=== PATIENT | male | born 1935 | race Caucasian/White ===

== ENCOUNTER 2017-03-09 18:32 | Inpatient (IN) ==
--- NOTE | 2017-03-09 22:45 | Internal Med History&Physical ---
Date of Encounter: 03/09/17 Time of Encounter: 22:32 Assessment and Plan (1) Rhabdomyolysis Current visit: Yes Status: Acute Trend CPK, IV fluid bolus, maintenance IV at 150 mL per hour Qualifiers: Rhabdomyolysis type: non-traumatic Qualified Code(s): M62.82 - Rhabdomyolysis (2) Elevated troponin Current visit: Yes Status: Acute Transient troponin. EKG personally reviewed with V paced rhythm (3) Cellulitis Current visit: Yes Status: Acute IV vancomycin, monitor vancomycin levels, pharmacy to assist with dosing Qualifiers: Site of cellulitis: extremity Site of cellulitis of extremity: lower extremity Laterality: left Qualified Code(s): L03.116 - Cellulitis of left lower limb (4) FRANCESCO (acute kidney injury) Current visit: Yes Status: Acute IV fluids, I's and O's likely prerenal and rhabdomyolysis (5) Encephalopathy acute Current visit: Yes Status: Acute Monitor mental status with above treatment (6) Fall Current visit: Yes Status: Acute PT evaluation when mental status improves Qualifiers: Encounter type: initial encounter Qualified Code(s): W19.XXXA - Unspecified fall, initial encounter Internal Medicine - H&P: HPI Chief complaint: found down, fall History of present illness: Mr. Esparza is a 82 year old male with a history of hypertension, depression, dementia, hyperlipidemia, CAD status post CABG and a paced maker placement who presents with a fall/loss of consciousness with elevated CPK greater than 2000, troponin 0.24, creatinine of 1.34, WBC 15.9 and was transferred from [facility] for further management. On evaluation he has a left lower extremity cellulitis. He appears confused and agitated at current and is unable to provide a history. His home meds per chart review include 25 mg sertraline daily, 40 mg lisinopril daily, donepezil 5 mg daily, eliqius 5 mg twice a day, Norvasc 10 mg daily At the [facility] with CPK in the 2476 range, lactate of 2.04, troponin of 0.19, creatinine of 1.34, a bicarbonate of 29 Initial trauma screen at outside hospital with a CT cervical spine, CT head without acute findings. , x-ray left knee with soft tissue swelling, normal chest x-ray EKG with ventricular paced rhythm rate 88 Internal Medicine - H&P: Meds Allergies No Known Allergies Allergy (Verified 03/09/17 22:51) All Systems PM: A 10-system review of systems was performed and is negative for pertinent findings except as documented above in the HPI. Review of systems: ROS 14 point review of systems reviewed as best as possible given presentation. Pertinent positive or negative as per HPI or otherwise reviewed as negative - Constitutional Vitals: Temp Pulse Resp BP Pulse Ox 98.4 F 112 18 134/66 98 03/09/17 21:50 03/09/17 21:50 03/09/17 21:50 03/09/17 21:50 03/09/17 21:50 Exam: General - confused, hyperactive active delirium Psych - Appropriate affect/speech. No agitation Eyes - IVAN. Eye lids intact. No scleral icterus ENT - Oral mucosa pink, dentition intact. External ear clear/dry/intact. No thyromegaly Lymphatics - No cervical/inguinal lympadenopathy Neuro - No gross peripheral or central neuro deficits with intact CN 2-12 exam Heart - Sinus. RRR. S1 and S2 present. No added HS/murmurs appreciated. No elevated JVD appreciated. No calf swellings/erythema Lung - Adequate air entry b/l, No crackes/wheezes appreciated GI - Soft, non-tender. No hepatosplenomegaly/ascities. BS+ - No CVA/suprapubic tenderness or palpable bladder distension Skin - left lower extremity cellulitis. Warm extremities
[2017-03-09] MEDS ORDERED: Naloxone 0.4 MG/ML INJ IVP PRN (22:51)
[2017-03-09] MEDS ORDERED: 0.9 % Sodium Chloride 1,000 ML IVC ONE (22:57)
[2017-03-09] MEDS ORDERED: Vancomycin 1,000 MG in D5% in Water 250 ML IVPB ONE (23:00)
[2017-03-09] MEDS ORDERED: Vancomycin 1,000 MG in D5% in Water 250 ML IVPB SCH (23:00)
[2017-03-10] MEDS ORDERED: Haloperidol Lactate 5 MG/ML VIAL IVP ONE ×2 (03:08→03:22)
[2017-03-10] MEDS: 0.9 % Sodium Chloride 1,000 ML IVC SCH ×2 (04:43→13:52)
[2017-03-10 05:34] LABS: Hematocrit 26.9 % (37.5-50.1); Hemoglobin 8.7 g/dL (12.9-16.9); Mean Corpuscular HGB Conc 32.3 g/dL (31.6-35.5); Mean Corpuscular Hemoglobin 30.7 pg (28.0-33.3); Mean Corpuscular Volume 95.1 fL (83.0-100.0); Mean Platelet Volume 10.6 fL (9.4-12.4); Platelet Count 170 K/mcL (140-400); Red Blood Count 2.83 M/mcL (4.19-5.50); Red Cell Distribution Width 13.1 % (11.5-14.5)
[2017-03-10] MEDS ORDERED: *HR* Enoxaparin 30 MG/0.3 ML SYRINGE SQ SCH (06:00)
[2017-03-10 06:07] LABS: Alanine Aminotransferase 41 Units/L (0-55); Albumin 2.3 g/dL (3.5-5.0); Albumin/Globulin Ratio 0.7 (1.1-2.2); Alkaline Phosphatase 43 Units/L (38-126); Aspartate Amino Transferase 104 Units/L (5-34); BUN/Creatinine Ratio 63 (6-26); Bilirubin,Total 0.8 mg/dL (0.2-1.2); Blood Urea Nitrogen 68 mg/dL (8-26); Calcium 8.4 mg/dL (8.6-10.8); Carbon Dioxide 23 mEq/L (19-29); Chloride 103 mEq/L (98-109); Creatine Kinase 2625 Units/L (30-200); Globulin 3.2 g/dL (2.4-3.5); Glucose 95 mg/dL (70-99); Osmolality,Calculated 304 (280-300); Potassium 3.9 mEq/L (3.5-4.5); Sodium 137 mEq/L (136-145); Total Protein 5.5 g/dL (6.0-8.3); eGFR For African Americans > 60 (> 60); eGFR For Non-African Americans > 60 (> 60)
--- NOTE | 2017-03-10 10:07 | Internal Med Progress Note ---
<SlimangelSiva ocampo - Last Filed: 03/10/17 14:26> Date of Encounter: 03/10/17 Time of Encounter: 10:00 - Assessment and plan (1) Encephalopathy acute Current Visit: Yes Status: Acute Assessment and plan: - Likely etiologies include infection versus underlying dementia versus cardiac related vs polypharmacy versus symptomatic anemia versus acute kidney injury - We will continue to monitor and treat underlying conditions as below - Per patient's son, he has had a similar episode a couple months ago secondary to urinary tract infection which resolved back to baseline with antibiotics. (2) Rhabdomyolysis Current Visit: Yes Status: Acute Assessment and plan: - CK of 2625 - BUN/creatinine of 68/1.08, no baseline to compare - Is receiving normal saline at 100 mL per hour - We will continue to monitor and hydrate, avoid nephrotoxic agents Qualifiers: Rhabdomyolysis type: non-traumatic Qualified Code(s): M62.82 - Rhabdomyolysis (3) Elevated troponin Current Visit: Yes Status: Acute Assessment and plan: - Troponin emergency room was 0.24 has down trended to 0.19 -> 0.17 - EKG emergency room revealed a ventricular paced rhythm with no evidence of ST elevation - Likely result of demand ischemia versus rhabdomyolysis with acute kidney injury - Echocardiogram ordered for this afternoon (4) Cellulitis Current Visit: Yes Status: Acute Assessment and plan: - White count of 15.9 on admission, 17.2 this morning - Patient has left lower extremity erythema, warmth, swelling - On admission, lactate of 2.04, heart rate of 112, meeting criteria for severe sepsis secondary to cellulitis - Patient is receiving vancomycin, no longer meeting SIRS criteria. Afebrile, normal heart rate - Continue to monitor for improvement Qualifiers: Site of cellulitis: extremity Site of cellulitis of extremity: lower extremity Laterality: left Qualified Code(s): L03.116 - Cellulitis of left lower limb (5) FRANCESCO (acute kidney injury) Current Visit: Yes Status: Acute Assessment and plan: - Likely result of rhabdomyolysis - BUN/creatinine of 68/1.08, no baseline to compare - We will continue to monitor and hydrate (6) Fall Current Visit: Yes Status: Acute Assessment and plan: - Patient believes the fall to be mechanical in nature, however he does appear confused and is alert and oriented 1 this morning - H&H stable at 8.7/26.9, however per nursing he is having dark stools - We will closely monitor for GI bleed Qualifiers: Encounter type: initial encounter Qualified Code(s): W19.XXXA - Unspecified fall, initial encounter (7) GI bleed Current Visit: Yes Status: Suspected Assessment and plan: - Patient is H&H this morning was 8.7/26.9. Reported values from [facility] of 12.6/37.8 - Possibly due to dehydration upon admission, patient is currently returns receiving continuous IV fluids - Patient has reportedly had dark stools, however he does take iron supplementation at home. Per nursing, stool does not appear to be tar-like - Type and screen ordered, Lovenox discontinued. Stool occult ordered - Continue to monitor H&H and vital signs at this point Qualifiers: GI bleed type/associated pathology: melena Qualified Code(s): K92.1 - Melena - Time Spent With Patient 25 - 35 minutes - Subjective Interval history: Mr. Esparza was seen and examined at bedside this morning. He is AO 1, however he is able to report that he is not currently expressing any pain, shortness of breath, chest pain, fevers, chills, recent illness. He is trying to relate the story of how he came to the hospital, stating he was working on a car and tripped over something. He does not believe he was down on the ground for an extended period of time, he denies losing any consciousness. Story is hard to follow and he is difficult to understand due to soft speech with mild slurring. No family is present at bedside to corroborate story. His only complaint at this time is mild abdominal discomfort. Per nursing, patient has been having continuous dark stools. H&H is stable at this time we will continue monitor. After speaking with patient's son this afternoon, he explained that his father' s baseline is normally ao3 and is very active. He states he did have a recent colonoscopy apparently one month ago with normal results. He does take iron supplementation pills at home. He also reports a recent incidents a couple months ago where he had a urinary tract infection and was experiencing the same symptoms of confusion, decreased alertness. Reevaluation this afternoon patient is more alert and oriented and has passed his bedside swallow evaluation and is currently eating lunch without complaints. - Constitutional Vitals: Temp Pulse Resp BP Pulse Ox 98.6 F 82 18 126/49 96 03/10/17 08:09 03/10/17 08:09 03/10/17 08:09 03/10/17 08:09 03/10/17 08:09 Exam: Gen.: Vitals noted. No acute distress. AAOx1. Cachectic appearing HEENT: PERRL/EOMI, oropharynx clear, Normocephalic, atraumatic. Mildly dry mucous membranes Neck: Supple. No adenopathy. Cardiac: RRR, no murmur, +S1/S2. Pacemaker present in the left chest, ventricularly paced rhythm Pulmonary: CTA bilaterally, no wheezes, rales or rhonchi, equal chest expansion Abdomen: soft, nontender, BS noted, no guarding Back: Nontender throughout. MSK: ROM intact, no joint swelling noted area abrasions noted on left shoulder, left hip secondary to suspected fall Extremities: Left lower extremity erythema, warmth. no BLE edema, nontender calf, no cyanosis or clubbing Neuro: A&Ox1, moves all extremities, no focal deficits Psych: Appropriate mood and behavior Internal Medicine: Result - Labs CBC & Chem 7: 03/10/17 05:21 03/10/17 05:21 Labs: Short CBC 03/10/17 Range/Units 05:21 WBC 17.2 H (4.3-11.1) K/mcL Hgb 8.7 L (12.9-16.9) g/dL Hct 26.9 L (37.5-50.1) % Plt Count 170 (140-400) K/mcL BMP 03/10/17 05:21 Sodium 137 Potassium 3.9 Chloride 103 Carbon Dioxide 23 BUN 68 H Creatinine 1.08 Glucose 95 Calcium 8.4 L Cardiac Enzymes 03/09/17 03/10/17 Range/Units 23:59 05:21 Troponin I 0.19 H* 0.17 H* (0-0.03) ng/mL Liver Function 03/10/17 Range/Units 05:21 Total Bilirubin 0.8 (0.2-1.2) mg/dL AST 104 H (5-34) Units/L ALT 41 (0-55) Units/L Alkaline Phosphatase 43 (38-126) Units/L Albumin 2.3 L (3.5-5.0) g/dL Consult Discharge Plan - Plan Referrals: Twyla Sorenson MD [Non-Partnered Physician] - <Newton Espinal - Last Filed: 03/10/17 15:44> Date of Encounter: 03/10/17 - Assessment and plan (1) Sepsis Current Visit: Yes Status: Acute Qualifiers: Sepsis type: sepsis due to unspecified organism Qualified Code(s): A41.9 - Sepsis, unspecified organism (2) Rhabdomyolysis Current Visit: Yes Status: Acute Qualifiers: Rhabdomyolysis type: non-traumatic Qualified Code(s): M62.82 - Rhabdomyolysis (3) Elevated troponin Current Visit: Yes Status: Acute (4) FRANCESCO (acute kidney injury) Current Visit: Yes Status: Acute (5) Encephalopathy acute Current Visit: Yes Status: Acute (6) Fall Current Visit: Yes Status: Acute Qualifiers: Encounter type: initial encounter Qualified Code(s): W19.XXXA - Unspecified fall, initial encounter (7) Cellulitis Current Visit: Yes Status: Acute Qualifiers: Site of cellulitis: extremity Site of cellulitis of extremity: lower extremity Laterality: left Qualified Code(s): L03.116 - Cellulitis of left lower limb (8) GI bleed Current Visit: Yes Status: Suspected Qualifiers: GI bleed type/associated pathology: melena Qualified Code(s): K92.1 - Melena - Constitutional Vitals: Temp Pulse Resp BP Pulse Ox 98.0 F 84 16 107/50 93 03/10/17 12:21 03/10/17 12:21 03/10/17 12:21 03/10/17 12:21 03/10/17 12:21 Internal Medicine: Result - Labs CBC & Chem 7: 03/10/17 05:21 03/10/17 05:21 Labs: Short CBC 03/10/17 Range/Units 05:21 WBC 17.2 H (4.3-11.1) K/mcL Hgb 8.7 L (12.9-16.9) g/dL Hct 26.9 L (37.5-50.1) % Plt Count 170 (140-400) K/mcL BMP 03/10/17 05:21 Sodium 137 Potassium 3.9 Chloride 103 Carbon Dioxide 23 BUN 68 H Creatinine 1.08 Glucose 95 Calcium 8.4 L Cardiac Enzymes 07/27/17 07/28/17 Range/Units 23:59 05:21 Troponin I 0.19 H* 0.17 H* (0-0.03) ng/mL Liver Function 03/10/17 Range/Units 05:21 Total Bilirubin 0.8 (0.2-1.2) mg/dL AST 104 H (5-34) Units/L ALT 41 (0-55) Units/L Alkaline Phosphatase 43 (38-126) Units/L Albumin 2.3 L (3.5-5.0) g/dL - Attending Attestation I examined this patient and my medical decision-making was reviewed with the Resident Physician on 03/10/17. I agree with the documented findings, disposition and treatment plan as described except to the extent set forth below. Seen and evaluated at bedside 82 M with hx of fall-unknown duration with sepsis (tachycardia on presentation, leukocytosis and cellulitis) secondary to RLE cellulitis, rhabdomyolysis and FRANCESCO , elevated troponin, acute encephalopathy, anemia, suspected GIB, Afib on anticoagulation At time of review, he was confused, oriented to person only Hx obtained from chart Per family, patient is independent and functional at baseline Physical exam: VSS, Tachycardia has resolved, he was alert and oriented to self only, moved all extremities equally, chest is clear, abdomen is scaphoid, extremities with RLE redness and swelling, no visible abscess collection, no pedal edema. Labs and Imaging reviewed: CK 2625, FRANCESCO is improving with Cr 0.9, Elevated trop 0.19-0.17, Leukocytosis with left shift, C-Spine/Head CT with no sequelae of traums A/P *Severe Sepsis secondary to cellulitis, improving *FRANCESCO secondary to rhabdomyolysis, *Cellulitis, *Acute encephalopathy-multifactorial from FRANCESCO(metabolic, Sepsis, R/O underlying dementia) *Suspected GIbleed Continue antibiotics, Speech and swallow as well as PT/OT eval, continue current management. Obtain ECHO. If EF is low or WMA, consult cardiology, fall precautions, no evidence of decubitus ulcers Suspected GI bleed, possibly chronic anemia, obtain FOBT, type and screen, hold eliquis, ICDs for DVT prophylaxis. Consult GI/Surgery if HB drops , or FOBT positive Rest as in resident's documentation
--- NOTE | 2017-03-10 15:47 | Palliative - Consult Note ---
Date of Encounter: 03/10/17 Time of Encounter: 15:44 - Assessment and Plan (1) Goals of care, counseling/discussion Current Visit: Yes Status: Acute Assessment and plan: Mr. Esparza remains oriented to person only. Contacted his secondary contact ( Norris Mack [phone]) as his son Derek Esparza was not available. According to Norris, Mr. Esparza does not have advanced directives in place at this time. His spouse is in a nursing facility long-term following a stroke. His point of auto parts salesperson is his son, Derek. CODE STATUS will remain full at this time pending further goals of care discussions with the patient's mental status has returned to normal. The palliative care team will continue to follow. Thank you for this consultation. Derek Esparza cell; home Norris Mack (2) Rhabdomyolysis Current Visit: Yes Status: Acute Qualifiers: Rhabdomyolysis type: non-traumatic Qualified Code(s): M62.82 - Rhabdomyolysis (3) Encephalopathy acute Current Visit: Yes Status: Acute Palliative-CN HPI - Data of Consult Patient: new to practice Consult date: 03/10/17 Requesting Physician: Norris Reeder DO Primary Care Provider: PCP NONE - Consult Narrative Palliative Care/Comfort Measures: Palliative care Reason for consult: Goals of Care History of present illness: Mr. Esparza is an 82 year old male patient presenting to [facility] as a transfer from [facility]. Mr. Esparza was found by the visitor services representative from [employer] after a suspected fall in his home. He was last seen well at 6 PM on 03/08/2017. The visitor services representative from [employer] [facility] [employer] found him at 12:30 the afternoon on , 03/09/2017. He was evaluated by local hospital and transferred to [facility] for a higher level of care. Upon evaluation he was found to have rhabdomyolysis, left leg cellulitis, encephalopathy, and black tarry stools. He was admitted for further workup and treatment including IV fluids and antibiotics. The palliative care team was consulted to assist with goals of care management. According to Mr. Esparza's family, he has had a significant weight loss over the past year totaling between 25 and 30 pounds. He has had a workup regarding this weight loss that has been negative. His spouse has been in an ECF after recent CVA last year, requiring Mr. Esparza to be the primary caregiver of himself. He typically ambulates on his own without the use of assistive devices. His family reports a very poor appetite over the past 2-3 days. He does not have home health services at this time. CC: Norris Reeder, DO Past Med Surg Social Fam HX - Past Medical History Source: obtained from family Medical history: coronary artery disease, dementia, hyperlipidemia, hypertension , myocardial infarction (1998) Psychiatric history: depression - Past Surgical History Surgical History: coronary bypass (CABG), pacemaker - Social History Smoking Status: Current some day smoker Alcohol use: unknown Drug use: unknown Occupational status: retired (dairy husbandry worker) Current living situation: Home - Independent, With Family (family checks on him daily) Activity Level: Uses cane/walker Medications and Allergies Apixaban [Eliquis] 5 mg PO BID 03/10/17 [History] Donepezil [Aricept] 5 mg PO HS 03/10/17 [History] Ferrous Sulfate [Iron] 325 mg PO DAILY 03/10/17 [History] Lisinopril [Zestril] 40 mg PO DAILY 03/10/17 [History] Multivitamin [One Daily Essential] 1 each PO DAILY 03/10/17 [History] [place]-3 Fatty Acids [Fish Oil] 600 mg PO DAILY 03/10/17 [History] Sertraline [Zoloft] 25 mg PO DAILY 03/10/17 [History] amLODIPine [Norvasc] 10 mg PO DAILY 03/10/17 [History] Allergies No Known Allergies Allergy (Verified 03/10/17 13:14) - Constitutional Constitutional ROS PAL: weight loss (25-30# weight loss in the past year) - EENT Eyes: no change in vision Ears: decreased hearing Ears, nose, mouth, throat: no dysphagia, no sore throat - Cardiovascular Cardiovascular ROS: no chest pain, no chest pain at rest, no chest pain with activity - Respiratory Respiratory: no cough, no dyspnea, no dyspnea on exertion, no chest congestion - Gastrointestinal Gastrointestinal: no constipation, no diarrhea, no nausea, no vomiting - Genitourinary Genitourinary ROS male: no difficulty urinating, no urinary frequency - Musculoskeletal Musculoskeletal ROS IM: muscle weakness - Integumentary ROS Integumentary: erythema (left leg) - Neurological Neurological ROS: confusion, lack of coordination, weakness, no focal weakness - Psychiatric Psychiatric general PM: no anxiety Palliative Care-Exam - Constitutional Vitals: Temp Pulse Resp BP Pulse Ox 98.0 F 84 16 107/50 93 03/10/17 12:21 03/10/17 12:21 03/10/17 12:21 03/10/17 12:21 03/10/17 12:21 Exam: 82 year old male, cachectic, alert to person. - Eye Eye exam: Present: EOMI - ENT ENT exam: Absent: mucous membranes dry - Respiratory Respiratory exam: Absent: accessory muscle use, decreased breath sounds, respiratory distress - Cardiovascular Cardiovascular exam: Present: RRR, +S1, +S2 - GI/Abdominal Exam GI/Abdominal exam: Present: normal bowel sounds, soft. Absent: tenderness - Extremities Exam Extremities exam: Absent: normal inspection (left leg erythema) - Expanded Lower Extremities Exam Lower Leg exam: Present: erythema - Neurological Exam Neurological exam: Present: alert (oriented to person ), strengths equal and symetr throughout (global weakness). Absent: oriented X3 - Psychiatric Psychiatric exam: Absent: anxious - Skin Skin exam: Present: dry, erythema (left lower extremity), warm Internal Medicine - CN: Reslt - Labs CBC & Chem 7: 03/10/17 05:21 03/10/17 05:21 Labs: Short CBC 03/10/17 Range/Units 05:21 WBC 17.2 H (4.3-11.1) K/mcL Hgb 8.7 L (12.9-16.9) g/dL Hct 26.9 L (37.5-50.1) % Plt Count 170 (140-400) K/mcL BMP 03/10/17 05:21 Sodium 137 Potassium 3.9 Chloride 103 Carbon Dioxide 23 BUN 68 H Creatinine 1.08 Glucose 95 Calcium 8.4 L Cardiac Enzymes 03/09/17 03/10/17 Range/Units 23:59 05:21 Troponin I 0.19 H* 0.17 H* (0-0.03) ng/mL Liver Function 03/10/17 Range/Units 05:21 Total Bilirubin 0.8 (0.2-1.2) mg/dL AST 104 H (5-34) Units/L ALT 41 (0-55) Units/L Alkaline Phosphatase 43 (38-126) Units/L Albumin 2.3 L (3.5-5.0) g/dL Consult Discharge Plan - Plan Referrals: Twyla Sorenson MD [Non-Partnered Physician] - Palliative Quality Palliative Quality: Screen for Code Status: Yes, Screen for Goals of Care: Yes, Screen for Pain: Yes, If Pain Regimen Started, Initiate Bowel Regimen: Yes, Screen for Nausea/Vomitting: Yes Code Status: 03/09/17 22:51 Resuscitation Status: Active [RES] Routine Comment: Resuscitation Status: Full Code
[2017-03-11] MEDS: 0.9 % Sodium Chloride 1,000 ML IVC SCH ×2 (00:01→10:22)
[2017-03-11] MEDS: Vancomycin 1,000 MG in D5% in Water 250 ML IVPB SCH ×2 (00:03→22:58)
[2017-03-11] MEDS ORDERED: *HR* Enoxaparin 40 MG/0.4 ML SYRINGE SQ SCH (06:00)
[2017-03-11 07:18] LABS: Hematocrit 21.4 % (37.5-50.1); Mean Corpuscular HGB Conc 32.2 g/dL (31.6-35.5); Mean Corpuscular Hemoglobin 30.8 pg (28.0-33.3); Mean Corpuscular Volume 95.5 fL (83.0-100.0); Mean Platelet Volume 11.2 fL (9.4-12.4); Platelet Count 157 K/mcL (140-400); Red Blood Count 2.24 M/mcL (4.19-5.50); Red Cell Distribution Width 13.4 % (11.5-14.5)
[2017-03-11 07:23] LABS: Hemoglobin 6.9 g/dL (12.9-16.9)
[2017-03-11 07:36] LABS: BUN/Creatinine Ratio 58 (6-26); Calcium 8.1 mg/dL (8.6-10.8); Carbon Dioxide 26 mEq/L (19-29); Chloride 109 mEq/L (98-109); Creatine Kinase 492 Units/L (30-200); Glucose 115 mg/dL (70-99); Osmolality,Calculated 306 (280-300); Potassium 3.2 mEq/L (3.5-4.5); Sodium 141 mEq/L (136-145); eGFR For African Americans > 60 (> 60); eGFR For Non-African Americans > 60 (> 60)
[2017-03-11 07:38] LABS: Blood Urea Nitrogen 48 mg/dL (8-26)
[2017-03-11] MEDS ORDERED: Potassium Chloride 40 MEQ, Lidocaine 1% 2 ML in D5% in Water 500 ML IVPB ONE (08:24)
--- NOTE | 2017-03-11 09:46 | Internal Med Progress Note ---
<Siva Palacios - Last Filed: 03/11/17 11:46> Date of Encounter: 03/11/17 Time of Encounter: 09:41 - Assessment and plan (1) GI bleed Current Visit: Yes Status: Suspected Assessment and plan: - Patient is H&H this morning was 6.9/21.4, down from 8.7/26.9. Reported values from [facility] of 12.6/37.8 - Surgery consulted for EGD, NPO diet, protonix, carafate. - Patient has reportedly had dark stools, however he does take iron supplementation at home. - Type and screen ordered, Lovenox discontinued. Stool occult positive - 2 units of blood ordered today. Monitor CBC after transfusion. Qualifiers: GI bleed type/associated pathology: melena Qualified Code(s): K92.1 - Melena (2) Encephalopathy acute Current Visit: Yes Status: Acute Assessment and plan: - Likely etiologies include infection versus underlying dementia versus symptomatic anemia - Improving. - Echo was limited but showed a normal EF. Unlikely cardiac cause. - FRANCESCO resolved. Cellulitis improving on vanc. - We will continue to monitor and treat underlying conditions as below - Per patient's son, he has had a similar episode a couple months ago secondary to urinary tract infection which resolved back to baseline with antibiotics. (3) Cellulitis Current Visit: Yes Status: Acute Assessment and plan: - White count of 15.9 on admission, 17.3 this morning, stable from yesterday 17.2 - Patient has left lower extremity erythema, warmth, swelling. Mildly improved from yesterday - On admission, lactate of 2.04, heart rate of 112, meeting criteria for severe sepsis secondary to cellulitis - Patient is receiving vancomycin, no longer meeting SIRS criteria. Afebrile, normal heart rate - Continue to monitor for improvement Qualifiers: Site of cellulitis: extremity Site of cellulitis of extremity: lower extremity Laterality: left Qualified Code(s): L03.116 - Cellulitis of left lower limb (4) Rhabdomyolysis Current Visit: Yes Status: Acute Assessment and plan: - CK of 2625 on admission 400s today. - BUN/creatinine of 48/0.83, back to baseline Cr. - Is receiving normal saline at 100 mL per hour, will discontinue tomorrow. Full diet. - We will continue to monitor and hydrate, avoid nephrotoxic agents Qualifiers: Rhabdomyolysis type: non-traumatic Qualified Code(s): M62.82 - Rhabdomyolysis (5) Elevated troponin Current Visit: Yes Status: Resolved Assessment and plan: - Troponin emergency room was 0.24 has down trended to 0.19 -> 0.17-> 0.05 - EKG emergency room revealed a ventricular paced rhythm with no evidence of ST elevation - Likely result of demand ischemia versus rhabdomyolysis with acute kidney injury - Echo had normal EF. Doubt cardiac injury (6) FRANCESCO (acute kidney injury) Current Visit: Yes Status: Acute Assessment and plan: - Likely result of rhabdomyolysis - BUN/creatinine 48/0.83. Baseline Cr met. - We will continue to monitor and hydrate (7) Fall Current Visit: Yes Status: Acute Assessment and plan: - Patient believes the fall to be mechanical in nature, however he does appear confused and is alert and oriented 1 this morning - H&H dropped to 6.9/21.4, dark stools with iron supplementation. Stool occult positive. Surgery consult for EGD. Protonix BID and carafate started - Type and cross. Will transfuse 2 units - PT/OT evaluated, recommend SNF upon discharge. Qualifiers: Encounter type: initial encounter Qualified Code(s): W19.XXXA - Unspecified fall, initial encounter - Time Spent With Patient 25 - 35 minutes - Subjective Interval history: Mr. Esparza was seen and examined at bedside this morning. He is AO 1 still this morning. He does appear more alert and is speaking in full sentances. He states he is still in some pain in his left ankle and leg, which is exacerbated with movement. He denies any symptoms of fevers, chills, SOB. He still is remaining to the story of him reaching into his car, hitting his head on the roof, and being on the ground for approximately 15 minutes without LOC. He denies lightheadedness, dizziness, weakness. He tolerated breakfast well. - Constitutional Vitals: Temp Pulse Resp BP Pulse Ox 97.4 F L 69 16 112/58 99 03/11/17 07:27 03/11/17 07:27 03/11/17 07:27 03/11/17 07:27 03/11/17 07:27 Exam: Gen.: Vitals noted. No acute distress. AAOx1 HEENT: PERRL/EOMI, oropharynx clear, Normocephalic, abrasion on left scalp. Neck: Supple. No adenopathy. Cardiac: RRR, no murmur, +S1/S2. V-paced Pulmonary: CTA bilaterally, no wheezes, rales or rhonchi, equal chest expansion Abdomen: soft, nontender, BS noted, no guarding Back: Nontender throughout. MSK: ROM intact, no joint swelling noted Extremities: no BLE edema, nontender calf, no cyanosis or clubbing Neuro: A&Ox1, moves all extremities, no focal deficits Psych: Appropriate mood and behavior Internal Medicine: Result - Labs CBC & Chem 7: 03/11/17 06:30 03/11/17 06:30 Labs: Short CBC 03/11/17 Range/Units 06:30 WBC 17.3 H (4.3-11.1) K/mcL Hgb 6.9 L D (12.9-16.9) g/dL Hct 21.4 L (37.5-50.1) % Plt Count 157 (140-400) K/mcL BMP 03/11/17 06:30 Sodium 141 Potassium 3.2 L Chloride 109 Carbon Dioxide 26 BUN 48 H D Creatinine 0.83 Glucose 115 H Calcium 8.1 L Cardiac Enzymes 03/11/17 Range/Units 06:30 Troponin I 0.05 H* (0-0.03) ng/mL Consult Discharge Plan - Plan Referrals: Twyla Sorenson MD [Non-Partnered Physician] - <Newton Espinal - Last Filed: 03/11/17 14:44> Date of Encounter: 03/11/17 - Assessment and plan (1) Sepsis Current Visit: Yes Status: Acute Qualifiers: Sepsis type: sepsis due to unspecified organism Qualified Code(s): A41.9 - Sepsis, unspecified organism (2) Rhabdomyolysis Current Visit: Yes Status: Acute Qualifiers: Rhabdomyolysis type: non-traumatic Qualified Code(s): M62.82 - Rhabdomyolysis (3) Elevated troponin Current Visit: Yes Status: Resolved (4) FRANCESCO (acute kidney injury) Current Visit: Yes Status: Acute (5) Encephalopathy acute Current Visit: Yes Status: Acute (6) Fall Current Visit: Yes Status: Acute Qualifiers: Encounter type: initial encounter Qualified Code(s): W19.XXXA - Unspecified fall, initial encounter (7) Cellulitis Current Visit: Yes Status: Acute Qualifiers: Site of cellulitis: extremity Site of cellulitis of extremity: lower extremity Laterality: left Qualified Code(s): L03.116 - Cellulitis of left lower limb (8) GI bleed Current Visit: Yes Status: Suspected Qualifiers: GI bleed type/associated pathology: melena Qualified Code(s): K92.1 - Melena - Constitutional Vitals: Temp Pulse Resp BP Pulse Ox 97.4 F L 77 15 113/61 93 03/11/17 11:35 03/11/17 11:35 03/11/17 11:35 03/11/17 11:35 03/11/17 11:35 Internal Medicine: Result - Labs CBC & Chem 7: 03/11/17 06:30 03/11/17 06:30 Labs: Short CBC 03/11/17 Range/Units 06:30 WBC 17.3 H (4.3-11.1) K/mcL Hgb 6.9 L D (12.9-16.9) g/dL Hct 21.4 L (37.5-50.1) % Plt Count 157 (140-400) K/mcL BMP 03/11/17 06:30 Sodium 141 Potassium 3.2 L Chloride 109 Carbon Dioxide 26 BUN 48 H D Creatinine 0.83 Glucose 115 H Calcium 8.1 L Cardiac Enzymes 03/11/17 Range/Units 06:30 Troponin I 0.05 H* (0-0.03) ng/mL - Attending Attestation I examined this patient and my medical decision-making was reviewed with the Resident Physician on 03/10/17. I agree with the documented findings, disposition and treatment plan as described except to the extent set forth below. Seen and evaluated at bedside 82 M with hx of fall-unknown duration with sepsis (tachycardia on presentation, leukocytosis and cellulitis) secondary to RLE cellulitis, rhabdomyolysis and FRANCESCO , elevated troponin, acute encephalopathy, anemia, suspected GIB, Afib on anticoagulation Seen and evaluated at bedside with his son. He is now much more awake and responds to questions His FRANCESCO has resolved, his cellulitis remains stable without evidence of abscess collection His leukocytosis persists His anemia is worse Physical exam: VSS, Tachycardia has resolved, he was alert and oriented to place and person. self only, moved all extremities equally, chest is clear, abdomen is scaphoid, extremities with RLE redness and swelling, no visible abscess collection, no pedal edema. Labs and Imaging reviewed: CK 400, FRANCESCO is resolved, Elevated trop 0.19-0.17-0.05 , Leukocytosis with left shift, C-Spine/Head CT with no sequelae of trauma ECHo poor study but EF is preserved FOBT positive A/P *Severe Sepsis secondary to cellulitis, improving, continue vancomycin , leukocytosis may also be reactionary due to acute blood loss anemia from suspected GI bleed *FRANCESCO secondary to rhabdomyolysis, resolved *Elevated troponin: Adynamic, downtrending *Cellulitis, continue Vancomycin, no abscess collection *Acute encephalopathy-resolved, per patient's son, he is back to baseline. AMS was multifactorial from FRANCESCO(metabolic, Sepsis, R/O underlying dementia) *Suspected GI bleed-consult surgery, keep NPO *Acute blood loss anemia: Transfuse RBCs, monitor Hb *Afib: HR controlled, continue to hold Eliquis SCDs for DVT prophylaxis Rest of details as in the resident physician documentation.
[2017-03-11] MEDS: Sucralfate 1 GM TABLET PO SCH ×3 (10:23→22:58)
[2017-03-11] MEDS ORDERED: 0.9 % Sodium Chloride 250 ML ONE ×2 (15:00→18:48)
[2017-03-11 15:35] LABS: Hematocrit 21.7 % (37.5-50.1); Hemoglobin 7.2 g/dL (12.9-16.9); Mean Corpuscular HGB Conc 33.2 g/dL (31.6-35.5); Mean Corpuscular Hemoglobin 31.2 pg (28.0-33.3); Mean Corpuscular Volume 93.9 fL (83.0-100.0); Mean Platelet Volume 11.7 fL (9.4-12.4); Platelet Count 149 K/mcL (140-400); Red Blood Count 2.31 M/mcL (4.19-5.50); Red Cell Distribution Width 13.4 % (11.5-14.5)
--- NOTE | 2017-03-11 17:03 | General Surgery Consult Note ---
Date of Encounter: 03/11/17 Time of Encounter: 17:00 Assessment and Plan (1) Anemia Current Visit: Yes Status: Acute patient likely has had a GIB, receiving 1 unit prbc, on carafate and PPI, had colonoscopy 1.5 months ago according to son will plan EGD with anesthesia in am, risks and benefits discussed with patient and son and consent given npo midnight Qualifiers: Anemia type: other cause Other causes of anemia: acute posthemorrhagic Qualified Code(s): D62 - Acute posthemorrhagic anemia (2) Leukocytosis Current Visit: Yes Status: Acute due to cellulitis?, continue Abx Qualifiers: Leukocytosis type: unspecified Qualified Code(s): D72.829 - Elevated white blood cell count, unspecified (3) Urinary incontinence Current Visit: Yes Status: Chronic patient in a diaper which is completely filled with urine and has spilled over onto his gown. he has a recent fall and rhabdomyolitis and FRANCESCO, tracy to be placed Qualifiers: Urinary Incontinence type: unspecified incontinence Qualified Code(s): R32 - Unspecified urinary incontinence (4) FRANCESCO (acute kidney injury) Current Visit: Yes Status: Acute resolving (5) Cellulitis Current Visit: Yes Status: Acute Qualifiers: Site of cellulitis: extremity Site of cellulitis of extremity: lower extremity Laterality: left Qualified Code(s): L03.116 - Cellulitis of left lower limb (6) GI bleed Current Visit: Yes Status: Suspected on PPI and carafate, had colonoscop 1.5 months ago per son will plan EGD in am with anesthesia Qualifiers: GI bleed type/associated pathology: melena Qualified Code(s): K92.1 - Melena History of Present Illness Consult date: 03/11/17 Reason for consult: endoscopy History of present illness: Mr Esparza is a 82 yo male who was admitted to the hospital for rhabdomyolysis, FRANCESCO, anemia after a fall at home and being found by a meals on wheels personell. He initially was sent to [facility] and transfered her to [facility] for further care. He has a cellulitis of his leg and is on Abx. His Hb has decreased down to 6.9 from 8.9 on admission and is hemoccult positive. He is a poor historian currently and states he has had some dark black stools recently. In discussion with his son, Derek, patient had a colonoscopy ~1.5 months ago and no pathology found for his melena. He has had some recent weight loss but son isnt sure how much or over what time frame. Patient is on Eliquis as a home medication. Past Med Surg Social Fam HX - Past Medical History Source: patient, old records reviewed, obtained from family Medical history: coronary artery disease, dementia, hyperlipidemia, hypertension , myocardial infarction (1998) Psychiatric history: depression - Past Surgical History Surgical History: coronary bypass (CABG), pacemaker - Social History Smoking Status: Current some day smoker Alcohol use: unknown Drug use: unknown Medications and Allergies Apixaban [Eliquis] 5 mg PO BID 03/10/17 [History] Donepezil [Aricept] 5 mg PO HS 03/10/17 [History] Ferrous Sulfate [Iron] 325 mg PO DAILY 03/10/17 [History] Lisinopril [Zestril] 40 mg PO DAILY 03/10/17 [History] Multivitamin [One Daily Essential] 1 each PO DAILY 03/10/17 [History] Floris-3 Fatty Acids [Fish Oil] 600 mg PO DAILY 03/10/17 [History] Sertraline [Zoloft] 25 mg PO DAILY 03/10/17 [History] amLODIPine [Norvasc] 10 mg PO DAILY 03/10/17 [History] Allergies No Known Allergies Allergy (Verified 03/10/17 13:14) Review of Systems All systems PM: reviewed and no additional remarkable complaints except as stated All systems PM: A 10-system review of systems was performed and is negative for pertinent findings except as documented above in the HPI. General Surgery Exam Initial Vital Signs Temp Pulse Resp BP Pulse Ox 98.4 F 112 18 134/66 98 03/09/17 21:41 03/09/17 21:41 03/09/17 21:41 03/09/17 21:41 03/09/17 21:41 - General physical appearance well nourished, no distress, chronically ill - Eyes PERRL, normal ocular movement - ENT normal mucosa, normocephalic - Neck trachea midline - Respiratory normal expansion, clear to auscultation - Cardiovascular Cardiovascular exam: Present: RRR - Abdomen Abdomen general surgery: Present: bowel sounds present, soft, non tender. Absent: guarding, rebound - Integumentary Integumentary general surgery: Present: warm and dry, other (pale) - Neurologic Present: CN 2-12 grossly intact, confused, disoriented - Musculoskeletal Present: normal posture - Psychiatric Psychiatric general surgery: Present: oriented to person Exam Initial Vital Signs Temp Pulse Resp BP Pulse Ox 98.4 F 112 18 134/66 98 03/09/17 21:41 03/09/17 21:41 03/09/17 21:41 03/09/17 21:41 03/09/17 21:41 Results - Labs 03/11/17 14:52 03/11/17 06:30 Abnormal lab results WBC 19.2 K/mcL (4.3-11.1) H 03/11/17 14:52 RBC 2.31 M/mcL (4.19-5.50) L 03/11/17 14:52 Hgb 7.2 g/dL (12.9-16.9) L 03/11/17 14:52 Hct 21.7 % (37.5-50.1) L 03/11/17 14:52 Potassium 3.2 mEq/L (3.5-4.5) L 03/11/17 06:30 BUN 48 mg/dL (8-26) H D 03/11/17 06:30 BUN/Creatinine Ratio 58 (6-26) H 03/11/17 06:30 Glucose 115 mg/dL (70-99) H 03/11/17 06:30 POC Glucose 113 (58-89) H 03/10/17 12:26 Calculated Osmolality 306 (280-300) H 03/11/17 06:30 Calcium 8.1 mg/dL (8.6-10.8) L 03/11/17 06:30 AST 104 Units/L (5-34) H 03/10/17 05:21 Creatine Kinase 492 Units/L (30-200) H 03/11/17 06:30 Troponin I 0.05 ng/mL (0-0.03) H* 03/11/17 06:30 Serum Total Protein 5.5 g/dL (6.0-8.3) L 03/10/17 05:21 Albumin 2.3 g/dL (3.5-5.0) L 03/10/17 05:21 Albumin/Globulin Ratio 0.7 (1.1-2.2) L 03/10/17 05:21 Stool Occult Blood Positive (Negative) A 03/10/17 13:19 Diabetes panel 03/11/17 Range/Units 06:30 Sodium 141 (136-145) mEq/L Potassium 3.2 L (3.5-4.5) mEq/L Chloride 109 (98-109) mEq/L Carbon Dioxide 26 (19-29) mEq/L BUN 48 H D (8-26) mg/dL Creatinine 0.83 (0.72-1.25) mg/dL Glucose 115 H (70-99) mg/dL Calcium 8.1 L (8.6-10.8) mg/dL Calcium panel 03/11/17 Range/Units 06:30 Calcium 8.1 L (8.6-10.8) mg/dL Pituitary panel 03/11/17 Range/Units 06:30 Sodium 141 (136-145) mEq/L Potassium 3.2 L (3.5-4.5) mEq/L Chloride 109 (98-109) mEq/L Carbon Dioxide 26 (19-29) mEq/L BUN 48 H D (8-26) mg/dL Creatinine 0.83 (0.72-1.25) mg/dL Glucose 115 H (70-99) mg/dL Calcium 8.1 L (8.6-10.8) mg/dL Adrenal panel 03/11/17 Range/Units 06:30 Sodium 141 (136-145) mEq/L Potassium 3.2 L (3.5-4.5) mEq/L Chloride 109 (98-109) mEq/L Carbon Dioxide 26 (19-29) mEq/L BUN 48 H D (8-26) mg/dL Creatinine 0.83 (0.72-1.25) mg/dL Glucose 115 H (70-99) mg/dL Calcium 8.1 L (8.6-10.8) mg/dL All other labs normal. Consult Discharge Plan - Plan Referrals: Twyla Sorenson MD [Non-Partnered Physician] -
[2017-03-11] MEDS: Pantoprazole 40 MG VIAL IVP SCH (18:21)
[2017-03-11 22:21] LABS: Hematocrit 24.9 % (37.5-50.1); Hemoglobin 8.4 g/dL (12.9-16.9)
[2017-03-12] MEDS: 0.9 % Sodium Chloride 1,000 ML IVC SCH ×3 (05:18→17:25)
[2017-03-12] MEDS: Pantoprazole 40 MG VIAL IVP SCH ×2 (05:25→17:25)
[2017-03-12] MEDS: Sucralfate 1 GM TABLET PO SCH ×4 (07:15→23:39)
[2017-03-12 07:20] LABS: Hematocrit 28.2 % (37.5-50.1); Hemoglobin 9.6 g/dL (12.9-16.9); Mean Corpuscular Hemoglobin 31.4 pg (28.0-33.3); Mean Corpuscular Volume 92.2 fL (83.0-100.0); Platelet Count 160 K/mcL (140-400); Red Blood Count 3.06 M/mcL (4.19-5.50); Red Cell Distribution Width 14.8 % (11.5-14.5)
[2017-03-12 07:21] LABS: BUN/Creatinine Ratio 34 (6-26); Calcium 7.7 mg/dL (8.6-10.8); Carbon Dioxide 30 mEq/L (19-29); Chloride 103 mEq/L (98-109); Glucose 110 mg/dL (70-99); Osmolality,Calculated 287 (280-300); Potassium 3.6 mEq/L (3.5-4.5); Sodium 135 mEq/L (136-145); eGFR For African Americans > 60 (> 60); eGFR For Non-African Americans > 60 (> 60)
[2017-03-12 07:29] LABS: Blood Urea Nitrogen 31 mg/dL (8-26)
[2017-03-12] MEDS ORDERED: Propofol 500 MG/50 ML INFUS..BTL ONE (07:37)
[2017-03-12] MEDS ORDERED: Lidocaine -MPF 2% 2 ML VIAL ONE (07:41)
--- NOTE | 2017-03-12 07:50 | Anesthesia Evaluation PreOp ---
Date of Encounter: 03/12/17 Time of Encounter: 07:48 - Past History Planned Operation: EGD Cardiac History: OK (OK in 1998. Troponin bump this admission, trending down), HTN (maintained on Lisinopril, norvasc), Hyperlipidemia (maitnained on Fish Oil) , Arrhythmia (Paroxysmal AFib (?) maintained on Eliquis), Cardiac Surgery (s.p CABG), Pacemaker/ICD (Pacer/paced rhythm 88bpm) Pulmonary History: Smoker [employer] History: Other (Anxiety/Depression maintained on Sertraline. Acute encephalopathy this admission. Dementia of unspecified severity) Other Medical History: Renal (FRANCESCO, Rhabdomyolysis s/p fall w/ CPK >2000 this admission), GERD (Melanotic stool/probably GIB), Other (LE cellulitis) Anesthesia History: No Prior Anesthetic Complications, Past Anesthesia (CABG, Pacemaker placement,) Alcohol Use: unknown Drug use: unknown Medications and Allergies Apixaban [Eliquis] 5 mg PO BID 03/10/17 [History] Donepezil [Aricept] 5 mg PO HS 03/10/17 [History] Ferrous Sulfate [Iron] 325 mg PO DAILY 03/10/17 [History] Lisinopril [Zestril] 40 mg PO DAILY 03/10/17 [History] Multivitamin [One Daily Essential] 1 each PO DAILY 03/10/17 [History] Graff-3 Fatty Acids [Fish Oil] 600 mg PO DAILY 03/10/17 [History] Sertraline [Zoloft] 25 mg PO DAILY 03/10/17 [History] amLODIPine [Norvasc] 10 mg PO DAILY 03/10/17 [History] Allergies No Known Allergies Allergy (Verified 03/10/17 13:14) - Meds/Allergy Pre-op Review Medications Reviewed: Yes Allergies Reviewed: Yes Beta Blockers on Current Med List: No Anesthesia Results - Labs 03/12/17 05:42 03/12/17 05:42 Laboratory Tests 03/11/17 03/11/17 03/12/17 06:30 06:30 05:42 Est GFR (Non-Af Amer) > 60 Glucose 110 H Creatine Kinase 492 H Troponin I 0.05 H* Anesthesia Exam Vital Signs Temp Pulse Resp BP Pulse Ox 03/12/17 07:01 97.4 F L 61 20 101/51 96 03/12/17 02:52 97.7 F 102 21 104/47 93 03/11/17 23:14 97.8 F 63 23 120/55 90 03/11/17 22:55 92 03/11/17 22:16 98.1 F 71 16 117/58 94 03/11/17 18:54 98 F 81 16 144/76 92 03/11/17 18:51 98.0 F 81 15 144/76 92 03/11/17 16:00 97.8 F 80 16 120/50 93 03/11/17 15:45 97.7 F 83 16 108/58 92 03/11/17 15:30 97.8 F 78 16 120/50 93 03/11/17 11:35 97.4 F L 77 15 113/61 93 Intake and Output 03/11/17 03/11/17 03/12/17 15:59 23:59 07:59 Intake Total 1600 / 1600 1700 / 1700 Output Total 200 / 200 455 / 455 125 / 125 Balance 1400 / 1400 1245 / 1245 -125 / -125 Intake: IV Fluids 1000 / 1000 1000 / 1000 0.9 % Sodium Chloride 1, 1000 / 1000 1000 / 1000 000 ML @ 100 mls/hr IVC . Q[facility] Rx#:[id number] Oral 600 / 600 0 / 0 Blood Product 0 / 0 700 / 700 Rbcs Leuko Poor As-1 0 / 0 350 / 350 Unit [id number] Rbcs Leuko Poor As-1 350 / 350 Unit [id number] Output: Urine 200 / 200 0 / 0 Catheter 455 / 455 125 / 125 Other: Meal Breakfast Percent of Meal Consumed 100% # Voids 1 # Urine Diapers 1 Weight 62 kg 69 kg Patient Weight 03/12/17 23:59 Weight 69 kg Height: 5'10" Weight: 152# BMI = 22 - HEENT Pupil (Motor): Pupils equal, EOMI Mallampati: II Teeth: Edentulous Oral Opening: Greater than 3 - [employer] LOC: Oriented [employer] Motor: Normal RUE, Normal LUE, Normal RLE, Normal LLE, Normal Face [employer] Sensory: Normal: RUE, LUE, RLE, LLE, Face - Cardiac Rhythm: Regular Murmur: None JVD: No - Pulmonary Respiratory Effort: Symmetrical Anesthesia Assess/Plan ASA Score: 3 Anes Supervising Prov Stmt: Pt seen/evaluated, R&B Discussed questions answered and consent obtained. Raymond Nieto MD
--- NOTE | 2017-03-12 08:48 | Anesthesia Evaluation Post Op ---
Date of Encounter: 03/12/17 Time of Encounter: 08:47 - Vital Signs Vital Signs: Vital Signs/O2 Sat/Glucose, Most Current Temp Pulse Resp BP Pulse Ox 03/12/17 07:56 72 18 112/47 96 03/12/17 07:01 97.4 F L 61 20 101/51 96 - Lungs Lungs: Clear Ascult./Percussion - Airway Airway: Non-obstructed - Cardiovascular Regular Rate - Mental Status Mental Status: Asleep with brisk response to light stimulation - Pain Pain Scale: 0 Pain Scale used: Numeric (1 - 10) - Nausea Vomiting Nausea Vomiting: Not Present - Hydration Hydration: NPO, Faria catheter - Discharge PostOp Status: Transfer Patient to floor Anes Supervising Prov Stmt: Pt seen/evaluated, VSS and pt has met criteria for discharge to floor. - MD Emilia
[2017-03-12] MEDS: Acetaminophen 325 MG TABLET PO PRN (09:57)
--- NOTE | 2017-03-12 10:24 | Internal Med Progress Note ---
<Siva Palacios - Last Filed: 03/12/17 11:58> Date of Encounter: 03/12/17 Time of Encounter: 10:21 - Assessment and plan (1) GI bleed Current Visit: Yes Status: Suspected Assessment and plan: - Patient is H&H this morning was 9.6/28.2, s/p 2 units yesterday. Stable since transfusion. - Surgery did EGD this morning. Prelim report of duodenal ulcer with color change, small hiatal hernia. - Patient has continued dark stools. - Type and screen ordered, Lovenox discontinued. Stool occult positive - Will continue to monitor H/H, PPI transition to PO when more awake, carafate. Qualifiers: GI bleed type/associated pathology: melena Qualified Code(s): K92.1 - Melena (2) Encephalopathy acute Current Visit: Yes Status: Acute Assessment and plan: - Likely etiologies include cellulitis vs underlying dementia vs symptomatic anemia - Improving since admission. - Echo was limited but showed a normal EF. Unlikely cardiac cause. - FRANCESCO resolved. Cellulitis stable on vanc. - We will continue to monitor and treat underlying conditions as below - Per patient's son, he has had a similar episode a couple months ago secondary to urinary tract infection which resolved back to baseline with antibiotics. (3) Cellulitis Current Visit: Yes Status: Acute Assessment and plan: - White count of 15.9 on admission, downtrend to 15.3 this AM. - Patient has left lower extremity erythema, warmth, swelling. Not improved since yesterday. CT LLE ordered today - On admission, lactate of 2.04, heart rate of 112, meeting criteria for severe sepsis secondary to cellulitis - Patient is receiving vancomycin, no longer meeting SIRS criteria. Afebrile, normal heart rate - Continue to monitor for improvement - f/u on CT this afternoon. R/o fracture or DVT. Qualifiers: Site of cellulitis: extremity Site of cellulitis of extremity: lower extremity Laterality: left Qualified Code(s): L03.116 - Cellulitis of left lower limb (4) Rhabdomyolysis Current Visit: Yes Status: Acute Assessment and plan: - Resolved - CK of 2625 on admission 400s on last draw. - BUN/creatinine of 31/0.92 back to baseline Cr. - Full diet. Qualifiers: Rhabdomyolysis type: non-traumatic Qualified Code(s): M62.82 - Rhabdomyolysis (5) Elevated troponin Current Visit: Yes Status: Resolved Assessment and plan: - Troponin emergency room was 0.24 has down trended to 0.19 -> 0.17-> 0.05 - EKG emergency room revealed a ventricular paced rhythm with no evidence of ST elevation - Likely result of demand ischemia versus rhabdomyolysis with acute kidney injury - Echo had normal EF. Doubt cardiac injury (6) FRANCESCO (acute kidney injury) Current Visit: Yes Status: Acute Assessment and plan: -resolved - Likely result of rhabdomyolysis - BUN/creatinine 31/0.92. Baseline Cr met. (7) Fall Current Visit: Yes Status: Acute Assessment and plan: - Patient believes the fall to be mechanical in nature, however he does appear confused and is alert and oriented 1 this morning - EGD this AM to evaluate for symptiomatic anemia. - PT/OT evaluated, recommend SNF upon discharge. Qualifiers: Encounter type: initial encounter Qualified Code(s): W19.XXXA - Unspecified fall, initial encounter - Time Spent With Patient 25 - 35 minutes - Subjective Interval history: Mr. Esparza was seen and examined at bedside this morning. He is recently returning from his EGD and is still lethargic and mildly confused. He states he is still in a significant pain in his left ankle. He denies any further fevers, chills, CP, SOB at this time. - Constitutional Vitals: Temp Pulse Resp BP Pulse Ox 97.8 F 75 20 93/41 90 03/12/17 10:20 03/12/17 10:20 03/12/17 10:20 03/12/17 10:20 03/12/17 10:20 Exam: Gen.: Vitals noted. No acute distress. AAOx1 HEENT: PERRL/EOMI, oropharynx clear, Normocephalic, atraumatic Neck: Supple. No adenopathy. Cardiac: RRR, no murmur, +S1/S2. v-paced Pulmonary:Mild wheezes, equal chest expansion Abdomen: soft, nontender, BS noted, no guarding Back: Nontender throughout. MSK: increased erythema and swelling of LLE. ROM intact, no joint swelling noted Extremities: no BLE edema, nontender calf, no cyanosis or clubbing Neuro: A&Ox1, moves all extremities, no focal deficits Psych: Appropriate mood and behavior Internal Medicine: Result - Labs CBC & Chem 7: 03/12/17 05:42 03/12/17 05:42 Labs: Short CBC 03/11/17 03/11/17 03/12/17 Range/Units 14:52 22:13 05:42 WBC 19.2 H 15.3 H (4.3-11.1) K/mcL Hgb 7.2 L 8.4 L 9.6 L (12.9-16.9) g/dL Hct 21.7 L 24.9 L 28.2 L (37.5-50.1) % Plt Count 149 160 (140-400) K/mcL BMP 03/12/17 05:42 Sodium 135 L Potassium 3.6 Chloride 103 Carbon Dioxide 30 H BUN 31 H D Creatinine 0.92 Glucose 110 H Calcium 7.7 L Consult Discharge Plan - Plan Referrals: Twyla Sorenson MD [Non-Partnered Physician] - <Newton Espinal T - Last Filed: 03/12/17 12:40> Date of Encounter: 03/12/17 - Assessment and plan (1) Sepsis Current Visit: Yes Status: Acute Qualifiers: Sepsis type: sepsis due to unspecified organism Qualified Code(s): A41.9 - Sepsis, unspecified organism (2) Rhabdomyolysis Current Visit: Yes Status: Acute Qualifiers: Rhabdomyolysis type: non-traumatic Qualified Code(s): M62.82 - Rhabdomyolysis (3) Elevated troponin Current Visit: Yes Status: Resolved (4) FRANCESCO (acute kidney injury) Current Visit: Yes Status: Acute (5) Encephalopathy acute Current Visit: Yes Status: Acute (6) Fall Current Visit: Yes Status: Acute Qualifiers: Encounter type: initial encounter Qualified Code(s): W19.XXXA - Unspecified fall, initial encounter (7) Cellulitis Current Visit: Yes Status: Acute Qualifiers: Site of cellulitis: extremity Site of cellulitis of extremity: lower extremity Laterality: left Qualified Code(s): L03.116 - Cellulitis of left lower limb (8) GI bleed Current Visit: Yes Status: Suspected Qualifiers: GI bleed type/associated pathology: melena Qualified Code(s): K92.1 - Melena - Constitutional Vitals: Temp Pulse Resp BP Pulse Ox 97.8 F 96 24 106/56 93 03/12/17 11:30 03/12/17 11:30 03/12/17 11:30 03/12/17 11:30 03/12/17 11:30 Internal Medicine: Result - Labs CBC & Chem 7: 03/12/17 05:42 03/12/17 05:42 Labs: Short CBC 03/11/17 03/11/17 03/12/17 Range/Units 14:52 22:13 05:42 WBC 19.2 H 15.3 H (4.3-11.1) K/mcL Hgb 7.2 L 8.4 L 9.6 L (12.9-16.9) g/dL Hct 21.7 L 24.9 L 28.2 L (37.5-50.1) % Plt Count 149 160 (140-400) K/mcL BMP 03/12/17 05:42 Sodium 135 L Potassium 3.6 Chloride 103 Carbon Dioxide 30 H BUN 31 H D Creatinine 0.92 Glucose 110 H Calcium 7.7 L - Attending Attestation I examined this patient and my medical decision-making was reviewed with the Resident Physician on 03/12/17. I agree with the documented findings, disposition and treatment plan as described except to the extent set forth below. Seen and evaluated at bedside 82 M with hx of fall-unknown duration with sepsis (tachycardia on presentation, leukocytosis and cellulitis) secondary to RLE cellulitis, rhabdomyolysis and FRANCESCO , elevated troponin, acute encephalopathy, acute blood loss anemia, suspected GIB, Afib on anticoagulation Seen and evaluated at bedside He is s/p EGD this morning, report is pending He is complaining of worsening pain on his LLE, and his LLE cellulitis looks worse with a focal point of tenderness on his L ankle. Physical exam: VSS, Tachycardia has resolved, he is AAOX3, moved all extremities equally, chest is clear, abdomen is scaphoid, extremities with LLE redness and swelling, point tenderness ++ at the ankle, no calf tenderness, no visible abscess collection, no pedal edema. Labs and Imaging reviewed: Hb stable, FRANCESCO is resolved, Elevated trop 0.19-0.17- 0.05, Leukocytosis improving, ECHO poor study but EF is preserved FOBT positive A/P *Severe Sepsis secondary to cellulitis, improving, continue vancomycin, leukocytosis is improving. LLE looks worse this a.m, r/o fracture, obtain Left LLE CT scan and Doppler to r /o DVT, suspicion for DVT is low, patient was on Eliquis prior to fall *FRANCESCO secondary to rhabdomyolysis, resolved *Elevated troponin: Adynamic, down trending. Will stop checking. ECHO is without WMA and EF is preserved *Cellulitis, continue Vancomycin, no abscess collection. Obtain LLE imaging *Acute encephalopathy-resolved, per patient's son, he is back to baseline. AMS was multifactorial from FRANCESCO(metabolic, Sepsis, R/O underlying dementia) *Suspected GI bleed-s/p EGD, report is pending *Acute blood loss anemia: s/p 2 units of RBCS, Hb is stable, continue to monitor *Afib: HR controlled, continue to hold Eliquis SCDs for DVT prophylaxis Resume home meds except BP meds and anticoagulation Rest of details as in the resident physician documentation.
--- NOTE | 2017-03-12 10:49 | Palliative Progress Note ---
Date of Encounter: 03/12/17 Time of Encounter: 10:30 - Assessment and plan (1) Goals of care, counseling/discussion Current Visit: Yes Status: Acute Assessment and plan: Faisal Reed at bedside. Discussed findings of EGD. Patient sleeping, awaked easy, confused to place and time. Derek desires that patient go to ECF for rehab. Prefers patient to go to [facility]. He prefers that patient NOT be sent to [facility] d/t his mother being there. He is interested in drafting advanced directives as well as financial ones. I explained that once patient is alert, Ox3 that we can draft healthcare ones here at hospital and recommended that he obtain corporate legal assistant to draft financial ones. Discusses Code Status and Derek reports that last conversation with father that he stated that he would want life saving measures and life support. I explained that once he is more alert that we can discuss this as well. Patient remains full code. (2) GI bleed Current Visit: Yes Status: Suspected Assessment and plan: S/P ECG. Duodenal ulcer and hiatal hernia. Treatment per surgery Qualifiers: GI bleed type/associated pathology: melena Qualified Code(s): K92.1 - Melena (3) Cellulitis Current Visit: Yes Status: Acute Assessment and plan: LLE warm and red. Antibiotics Qualifiers: Site of cellulitis: extremity Site of cellulitis of extremity: lower extremity Laterality: left Qualified Code(s): L03.116 - Cellulitis of left lower limb - Time Spent With Patient Total time spent is greater than 50% in coordination of care (as documented) at patient's floor/unit and/or counseling patient: 25 - 35 minutes - Subjective Interval history: Patient s/p EGD for GI bleed evaluation. Patient sleeping calmly from procedure. EGD revealed duodenal ulcer, hiatal hernia. Faisal Reed at bedside. - Constitutional Vitals: Abnormal lab results WBC 15.3 K/mcL (4.3-11.1) H 03/12/17 05:42 RBC 3.06 M/mcL (4.19-5.50) L 03/12/17 05:42 Hgb 9.6 g/dL (12.9-16.9) L 03/12/17 05:42 Hct 28.2 % (37.5-50.1) L 03/12/17 05:42 RDW 14.8 % (11.5-14.5) H 03/12/17 05:42 Sodium 135 mEq/L (136-145) L 03/12/17 05:42 Carbon Dioxide 30 mEq/L (19-29) H 03/12/17 05:42 BUN 31 mg/dL (8-26) H D 03/12/17 05:42 BUN/Creatinine Ratio 34 (6-26) H 03/12/17 05:42 Glucose 110 mg/dL (70-99) H 03/12/17 05:42 POC Glucose 113 (58-89) H 03/10/17 12:26 Calcium 7.7 mg/dL (8.6-10.8) L 03/12/17 05:42 AST 104 Units/L (5-34) H 03/10/17 05:21 Creatine Kinase 492 Units/L (30-200) H 03/11/17 06:30 Troponin I 0.05 ng/mL (0-0.03) H* 03/11/17 06:30 Serum Total Protein 5.5 g/dL (6.0-8.3) L 03/10/17 05:21 Albumin 2.3 g/dL (3.5-5.0) L 03/10/17 05:21 Albumin/Globulin Ratio 0.7 (1.1-2.2) L 03/10/17 05:21 Stool Occult Blood Positive (Negative) A 03/10/17 13:19 - Head Head exam: Present: atraumatic, normal inspection, normocephalic - Eye Eye exam: Present: PERRL Pupils: Present: PERRL - ENT ENT exam: Present: mucous membranes moist - Neck Neck exam: Present: full ROM - Respiratory Respiratory exam: Present: CTAB (loose cough, gag reflex present) - Cardiovascular Cardiovascular exam: Present: RRR, +S1, +S2 - GI/Abdominal GI/Abdominal exam: Present: normal bowel sounds - Rectal Rectal exam: Present: deferred - Additional comments: Faria catheter draining bloody drainage - Extremities Exam Extremities exam: Present: tenderness (LLE warm and red) - Back Exam Back exam: Present: full ROM - Neurological Exam Neurological exam: Present: altered (confused to place and time) - Psychiatric Psychiatric exam: Present: normal affect - Skin Skin exam: Present: pallor, warm Palliative Quality Palliative Quality: Screen for Code Status: Yes, Screen for Goals of Care: Yes, Screen for Pain: Yes, If Pain Regimen Started, Initiate Bowel Regimen: Yes, Screen for Nausea/Vomitting: Yes Code Status: 03/09/17 22:51 Resuscitation Status: Active [RES] Routine Comment: Resuscitation Status: Full Code - Labs CBC & Chem 7: 03/12/17 05:42 03/12/17 05:42 Labs: Laboratory Results - last 24 hr 03/10/17 03/11/17 03/11/17 12:31 14:52 22:13 WBC 19.2 H RBC 2.31 L Hgb 7.2 L 8.4 L Hct 21.7 L 24.9 L MCV 93.9 MCH 31.2 MCHC 33.2 RDW 13.4 Plt Count 149 MPV 11.7 Sodium Potassium Chloride Carbon Dioxide BUN Creatinine Est GFR ( Amer) Est GFR (Non-Af Amer) BUN/Creatinine Ratio Glucose Calculated Osmolality Calcium Blood Type AB POSITIVE Antibody Screen NEGATIVE Crossmatch See Detail 03/12/17 03/12/17 05:42 05:42 WBC 15.3 H RBC 3.06 L Hgb 9.6 L Hct 28.2 L MCV 92.2 MCH 31.4 MCHC 34.0 RDW 14.8 H Plt Count 160 MPV 11.0 Sodium 135 L Potassium 3.6 Chloride 103 Carbon Dioxide 30 H BUN 31 H D Creatinine 0.92 Est GFR ( Amer) > 60 Est GFR (Non-Af Amer) > 60 BUN/Creatinine Ratio 34 H Glucose 110 H Calculated Osmolality 287 Calcium 7.7 L Blood Type Antibody Screen Crossmatch Consult Discharge Plan - Plan Referrals: Twyla Sorenson MD [Non-Partnered Physician] -
[2017-03-12] MEDS: *HR* HYDROcodone/Acet 5/325 mg TABLET PO PRN (12:31)
[2017-03-12] MEDS ORDERED: Ipratropium/Albuterol Neb 3 ML IH PRN (23:35)
[2017-03-12] MEDS: Vancomycin 1,000 MG in D5% in Water 250 ML IVPB SCH (23:40)
[2017-03-13 05:13] LABS: Hematocrit 29.7 % (37.5-50.1); Mean Corpuscular HGB Conc 33.7 g/dL (31.6-35.5); Mean Corpuscular Hemoglobin 31.1 pg (28.0-33.3); Mean Corpuscular Volume 92.2 fL (83.0-100.0); Mean Platelet Volume 10.5 fL (9.4-12.4); Platelet Count 176 K/mcL (140-400); Red Blood Count 3.22 M/mcL (4.19-5.50); Red Cell Distribution Width 14.8 % (11.5-14.5)
[2017-03-13 05:28] LABS: BUN/Creatinine Ratio 29 (6-26); Blood Urea Nitrogen 25 mg/dL (8-26); Calcium 8.2 mg/dL (8.6-10.8); Carbon Dioxide 28 mEq/L (19-29); Chloride 105 mEq/L (98-109); Glucose 109 mg/dL (70-99); Osmolality,Calculated 291 (280-300); Sodium 138 mEq/L (136-145); eGFR For African Americans > 60 (> 60); eGFR For Non-African Americans > 60 (> 60)
[2017-03-13 05:35] LABS: Potassium 3.8 mEq/L (3.5-4.5)
[2017-03-13] MEDS: Pantoprazole 40 MG VIAL IVP SCH (06:03)
[2017-03-13] MEDS: *HR* HYDROcodone/Acet 5/325 mg TABLET PO PRN (09:31)
[2017-03-13] MEDS: Sucralfate 1 GM TABLET PO SCH ×4 (09:31→22:12)
--- NOTE | 2017-03-13 10:55 | Palliative Progress Note ---
Date of Encounter: 03/13/17 Time of Encounter: 10:53 - Assessment and plan (1) Goals of care, counseling/discussion Current Visit: Yes Status: Acute Assessment and plan: Plan for ECF placement upon discharge. Mr. Esparza remains confused, unable to complete advanced directives. Will continue to follow. Met with son-Derek regarding prior discussions. No further questions or concerns reported. (2) Rhabdomyolysis Current Visit: Yes Status: Acute Qualifiers: Rhabdomyolysis type: non-traumatic Qualified Code(s): M62.82 - Rhabdomyolysis (3) Encephalopathy acute Current Visit: Yes Status: Acute Assessment and plan: improving - Time Spent With Patient Total time spent is greater than 50% in coordination of care (as documented) at patient's floor/unit and/or counseling patient: - Subjective Interval history: Mr. Esparza is lying in bed with eyes closed. - Constitutional Vitals: Abnormal lab results WBC 14.4 K/mcL (4.3-11.1) H 03/13/17 04:51 RBC 3.22 M/mcL (4.19-5.50) L 03/13/17 04:51 Hgb 10.0 g/dL (12.9-16.9) L 03/13/17 04:51 Hct 29.7 % (37.5-50.1) L 03/13/17 04:51 RDW 14.8 % (11.5-14.5) H 03/13/17 04:51 BUN/Creatinine Ratio 29 (6-26) H 03/13/17 04:51 Glucose 109 mg/dL (70-99) H 03/13/17 04:51 POC Glucose 113 (58-89) H 03/10/17 12:26 Calcium 8.2 mg/dL (8.6-10.8) L 03/13/17 04:51 AST 104 Units/L (5-34) H 03/10/17 05:21 Creatine Kinase 492 Units/L (30-200) H 03/11/17 06:30 Troponin I 0.05 ng/mL (0-0.03) H* 03/11/17 06:30 Serum Total Protein 5.5 g/dL (6.0-8.3) L 03/10/17 05:21 Albumin 2.3 g/dL (3.5-5.0) L 03/10/17 05:21 Albumin/Globulin Ratio 0.7 (1.1-2.2) L 03/10/17 05:21 Stool Occult Blood Positive (Negative) A 03/10/17 13:19 - Respiratory Respiratory exam: Present: decreased breath sounds. Absent: respiratory distress, tachypnea - Cardiovascular Cardiovascular exam: Present: RRR, systolic murmur - GI/Abdominal GI/Abdominal exam: Present: normal bowel sounds. Absent: tenderness - Extremities Exam Extremities exam: Absent: normal inspection (left lower extremity erythema ) - Skin Skin exam: Present: erythema (left lower extremity erythema) Palliative Quality Palliative Quality: Screen for Code Status: Yes, Screen for Goals of Care: Yes, Screen for Pain: Yes, If Pain Regimen Started, Initiate Bowel Regimen: Yes, Screen for Nausea/Vomitting: Yes Code Status: 03/09/17 22:51 Resuscitation Status: Active [RES] Routine Comment: Resuscitation Status: Full Code - Labs CBC & Chem 7: 03/13/17 04:51 03/13/17 04:51 Labs: Laboratory Results - last 24 hr 03/13/17 03/13/17 04:51 04:51 WBC 14.4 H RBC 3.22 L Hgb 10.0 L Hct 29.7 L MCV 92.2 MCH 31.1 MCHC 33.7 RDW 14.8 H Plt Count 176 MPV 10.5 Sodium 138 Potassium 3.8 Chloride 105 Carbon Dioxide 28 BUN 25 Creatinine 0.86 Est GFR ( Amer) > 60 Est GFR (Non-Af Amer) > 60 BUN/Creatinine Ratio 29 H Glucose 109 H Calculated Osmolality 291 Calcium 8.2 L - Impressions Impressions Lower Extremity CT 03/12/17 10:04 IMPRESSION: 1. No acute osseous abnormality of the left lower extremity. 2. Nonspecific soft tissue swelling about the left leg. 3. No convincing CT scan evidence of abscess or osteomyelitis. D/ / Hema Feliz MD / Hema Feliz MD Interpreting Provider: Hema Feliz MD Chest X-Ray 03/13/17 09:37 IMPRESSION: Findings are most consistent with mild to moderate CHF, with bibasilar airspace disease likely reflecting either passive atelectasis or asymmetric edema. However, underlying pneumonia or aspiration cannot be excluded. D/ / 03/13/2017 10:34:28 Siva Hidalgo MD / harvinder Interpreting Provider: Siva Hidalgo MD Consult Discharge Plan - Plan Referrals: Twyla Sorenson MD [Non-Partnered Physician] - (Patient will possiblly go to an ECF and will follow up with PCP there)
[2017-03-13] MEDS ORDERED: Furosemide 40 MG/4 ML VIAL IVP ONE (12:15)
--- NOTE | 2017-03-13 16:51 | Internal Med Progress Note ---
<Brooke Reilly - Last Filed: 03/13/17 16:47> Date of Encounter: 03/13/17 Time of Encounter: 10:00 - Assessment and plan (1) GI bleed Current Visit: Yes Status: Suspected Assessment and plan: patient complained of dark stools on arrival. total of 2 units PRBCs transfused. H&H stable since transfusion. EGD on 03/12/17 showed one nonbleeding duodenal ulcer with pigmented material, duodenitis with biopsy pendng. erythematous mucosa in gastric body, which was biopsied, and small hiatal hernia. Plan: monitor H&H continue omepraole 40mg PO daily for 3 months continue sucralfate. Lovenox discontinued Qualifiers: GI bleed type/associated pathology: melena Qualified Code(s): K92.1 - Melena (2) Acute respiratory failure with hypoxia Current Visit: Yes Status: Acute Assessment and plan: patient requiring 2L nasal canula, did not require oxygen at home. CXR showed mild to moderate CHF with bibasilar airspace disease, atalectasis vs. edema, possible underlying pneumonia or aspiration. Plan: unasyn day 1 20mg IV lasix daily. (3) Encephalopathy acute Current Visit: Yes Status: Acute Assessment and plan: etiology likely multifactorial in setting of dehydration, fall, baseline dementia, rhabdo, cellulitis, symptomatic anemia improved since admisison. Echo was limited and valvular function not evaluated. Plan: s/p speech eval. recommended regular textures with nectar thick liquids. (4) Cellulitis Current Visit: Yes Status: Acute Assessment and plan: White count of 15.9 on admission, downtrend to 14.4 this AM. patient still complaining of LLE pain, no erythema noted. On admission, lactate of 2.04, heart rate of 112, meeting criteria for sepsis secondary to cellulitis Patient is receiving vancomycin CT of left lower extremity showed no osseous abnormality, nonspecific soft tissue swelling, no evidence of osteomyelitis. Plan: vanc day 5 Qualifiers: Site of cellulitis: extremity Site of cellulitis of extremity: lower extremity Laterality: left Qualified Code(s): L03.116 - Cellulitis of left lower limb (5) Rhabdomyolysis Current Visit: Yes Status: Resolved Assessment and plan: resolved. on admission, CK was 2625, in 400s on last draw. Qualifiers: Rhabdomyolysis type: non-traumatic Qualified Code(s): M62.82 - Rhabdomyolysis (6) Elevated troponin Current Visit: Yes Status: Resolved Assessment and plan: peak troponin .17, trended down. etiology likely secondary to demand ischemia in setting of GI bleed and anemia. echo showed LVEF 55-60%, valvular function not evaluated in limited study. patient refused to lay down for exam. (7) FRANCESCO (acute kidney injury) Current Visit: Yes Status: Resolved Assessment and plan: currently resolved. etiology likely multifactorial secondary to fall, rhabdomyolysis, dehydration. (8) Fall Current Visit: Yes Status: Acute Assessment and plan: patient believes fall to be mehcanical in nature. PT/OT evaluated, recommended SNF upon discharge. Qualifiers: Encounter type: initial encounter Qualified Code(s): W19.XXXA - Unspecified fall, initial encounter (9) Goals of care, counseling/discussion Current Visit: Yes Status: Acute Assessment and plan: palliative care on board. patient remains confused, unable to complete advanced directives at this time. (10) DVT prophylaxis Current Visit: Yes Status: Acute Assessment and plan: EPCD - Subjective Interval history: 82 year old male evaluated at bedside. per nursing notes, there were no acute events overnight. patient was sleeping and was very somnolent during examination. he was alert and oriented x2 this morning. He is complaining of pain in his left leg. he denies nausea, vomiting, diarrhea. he denies any further complaints today. - Constitutional Vitals: Temp Pulse Resp BP Pulse Ox 98.1 F 87 18 162/62 93 03/13/17 15:29 03/13/17 15:29 03/13/17 15:29 03/13/17 15:29 03/13/17 15:29 General appearance: Present: A&O X 2, pleasant, no acute distress - Head Head exam: Present: atraumatic, normocephalic - Respiratory Additional comments: bilateral crackles present, present more on left than right. 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 Absent: distended, tenderness - Extremities Exam Additional comments: no cyanosis, or clubbing present. left lower extremity: there was some tenderness with redness. there was +3 pitting edema on the left leg, and +1 pitting edema on right leg. - Neurological Exam Neurological exam: Present: alert, no focal deficits Internal Medicine: Result - Labs CBC & Chem 7: 03/13/17 04:51 03/13/17 04:51 Labs: Short CBC 03/13/17 Range/Units 04:51 WBC 14.4 H (4.3-11.1) K/mcL Hgb 10.0 L (12.9-16.9) g/dL Hct 29.7 L (37.5-50.1) % Plt Count 176 (140-400) K/mcL BMP 03/13/17 04:51 Sodium 138 Potassium 3.8 Chloride 105 Carbon Dioxide 28 BUN 25 Creatinine 0.86 Glucose 109 H Calcium 8.2 L - Impressions Impressions Chest X-Ray 03/13/17 09:37 IMPRESSION: Findings are most consistent with mild to moderate CHF, with bibasilar airspace disease likely reflecting either passive atelectasis or asymmetric edema. However, underlying pneumonia or aspiration cannot be excluded. D/ / 03/13/2017 10:34:28 Siva Hidalgo MD / bcarter Interpreting Provider: Siva Hidalgo MD Consult Discharge Plan - Plan Referrals: Twyla Sorenson MD [Non-Partnered Physician] - (Patient will possiblly go to an ECF and will follow up with PCP there) <Newton Espinal - Last Filed: 03/13/17 17:46> Date of Encounter: 03/13/17 - Assessment and plan (1) Sepsis Current Visit: Yes Status: Acute Qualifiers: Sepsis type: sepsis due to unspecified organism Qualified Code(s): A41.9 - Sepsis, unspecified organism (2) Rhabdomyolysis Current Visit: Yes Status: Resolved Qualifiers: Rhabdomyolysis type: non-traumatic Qualified Code(s): M62.82 - Rhabdomyolysis (3) Elevated troponin Current Visit: Yes Status: Resolved (4) FRANCESCO (acute kidney injury) Current Visit: Yes Status: Resolved (5) Encephalopathy acute Current Visit: Yes Status: Acute (6) Fall Current Visit: Yes Status: Acute Qualifiers: Encounter type: initial encounter Qualified Code(s): W19.XXXA - Unspecified fall, initial encounter (7) Cellulitis Current Visit: Yes Status: Acute Qualifiers: Site of cellulitis: extremity Site of cellulitis of extremity: lower extremity Laterality: left Qualified Code(s): L03.116 - Cellulitis of left lower limb (8) GI bleed Current Visit: Yes Status: Suspected Qualifiers: GI bleed type/associated pathology: melena Qualified Code(s): K92.1 - Melena - Constitutional Vitals: Temp Pulse Resp BP Pulse Ox 98.1 F 87 18 162/62 93 03/13/17 15:29 03/13/17 15:29 03/13/17 15:29 03/13/17 15:29 03/13/17 15:29 Internal Medicine: Result - Labs CBC & Chem 7: 03/13/17 04:51 03/13/17 04:51 Labs: Short CBC 03/13/17 Range/Units 04:51 WBC 14.4 H (4.3-11.1) K/mcL Hgb 10.0 L (12.9-16.9) g/dL Hct 29.7 L (37.5-50.1) % Plt Count 176 (140-400) K/mcL BMP 03/13/17 04:51 Sodium 138 Potassium 3.8 Chloride 105 Carbon Dioxide 28 BUN 25 Creatinine 0.86 Glucose 109 H Calcium 8.2 L - Impressions Impressions Chest X-Ray 03/13/17 09:37 IMPRESSION: Findings are most consistent with mild to moderate CHF, with bibasilar airspace disease likely reflecting either passive atelectasis or asymmetric edema. However, underlying pneumonia or aspiration cannot be excluded. D/ / 03/13/2017 10:34:28 Siva Hidalgo MD / bcarter Interpreting Provider: Siva Hidalgo MD - Attending Attestation I examined this patient and my medical decision-making was reviewed with the Resident Physician on . I agree with the documented findings, disposition and treatment plan as described except to the extent set forth below. Seen and evaluated at bedside 82 M admitted for management of of fall, sepsis (tachycardia on presentation, leukocytosis and cellulitis) secondary to LLE cellulitis, rhabdomyolysis and FRANCESCO , elevated troponin, acute encephalopathy, acute blood loss anemia from a bleeding duodenal ulcer,Afib on anticoagulation Seen and evaluated at bedside On evaluation this morning, patient was tachypneic and his mental status was not at his baseline, he was lethargic Physical exam: Afebrile, tachypneic, he is AAOX2, moved all extremities equally , chest with bibasilar crackles, abdomen is scaphoid, extremities with LLE redness and swelling, point tenderness ++ at the ankle, no calf tenderness, no visible abscess collection, no pedal edema. Labs and Imaging reviewed: Hb stable, FRANCESCO is resolved, Leukocytosis improving, ECHO poor study but EF is preserved CXR done stat 03/13 showed pulmonary edema, r/o aspiration A/P *Acute hypoxic respiratory failure secondary to CHFpEF: Possibly from IVF hydration. D/C IVF, Lasix 40mg IVP. speech and swallow to evaluate for aspiration. Continue Supplemental O2 *Severe Sepsis secondary to cellulitis, improving, continue vancomycin, leukocytosis is improving. LLE CT ruled out OM, or abscess collection, continue current management *FRANCESCO secondary to rhabdomyolysis, resolved *Elevated troponin: Adynamic, down trending. Will stop checking. ECHO is without WMA and EF is preserved *Cellulitis, continue Vancomycin, no abscess collection. Obtain LLE imaging *Acute encephalopathy-resolved, per patient's son, he is back to baseline. AMS was multifactorial from FRANCESCO(metabolic, Sepsis, R/O underlying dementia) *Suspected GI bleed-s/p EGD, with evidence of friable mucosa, crated duodenal ucler with evidence of prior bleed. Continue PPI. Biopsies were taken, follow reports *Acute blood loss anemia: s/p 2 units of RBCS, Hb is stable, continue to monitor *Afib: HR controlled, continue to hold Eliquis. Will discuss possible need for discontinuation of detention anticoagulation upon discharge SCDs for DVT prophylaxis Discharge dispo when stable is for SNF/ECF Rest of details as in the resident physician documentation.
[2017-03-13] MEDS: Ampicillin/Sulbactam 1,500 MG in 0.9 % Sodium Chloride Mini Bag 100 ML IVPB SCH (17:36)
[2017-03-13] MEDS: Vancomycin 1,000 MG in D5% in Water 250 ML IVPB SCH (22:12)
[2017-03-14] MEDS: Ampicillin/Sulbactam 1,500 MG in 0.9 % Sodium Chloride Mini Bag 100 ML IVPB SCH ×4 (00:36→17:13)
--- NOTE | 2017-03-14 06:13 | Internal Med Progress Note ---
<Brooke Reilly - Last Filed: 03/14/17 14:35> Date of Encounter: 03/14/17 Time of Encounter: 06:10 - Assessment and plan (1) GI bleed Current Visit: Yes Status: Suspected Assessment and plan: patient complained of dark stools on arrival. total of 2 units PRBCs transfused. EGD on 03/12/17 showed one nonbleeding duodenal ulcer with pigmented material, duodenitis with biopsy pendng. erythematous mucosa in gastric body, which was biopsied, and small hiatal hernia. Plan: monitor H&H Q12 hours- patient had 2 point drop in Hg today. continue omepraole 40mg PO daily for 3 months continue sucralfate. awaiting fpc placement. Qualifiers: GI bleed type/associated pathology: melena Qualified Code(s): K92.1 - Melena (2) Afib Current Visit: Yes Status: Acute Assessment and plan: pacemaker in place. patient was formerly on Eliquis Plan: stopped eliquis secondary to fall and GI bleed. Qualifiers: Atrial fibrillation type: chronic Qualified Code(s): I48.2 - Chronic atrial fibrillation (3) Acute respiratory failure with hypoxia Current Visit: Yes Status: Acute Assessment and plan: patient requiring 2L nasal canula, did not require oxygen at home. CXR showed mild to moderate CHF with bibasilar airspace disease, atalectasis vs. edema, possible underlying pneumonia or aspiration. Plan: unasyn day 3 switched to PO lasix today (4) Encephalopathy acute Current Visit: Yes Status: Acute Assessment and plan: etiology likely multifactorial in setting of dehydration, fall, baseline dementia, rhabdo, cellulitis, symptomatic anemia patient is still altered. Echo was limited and valvular function not evaluated. Plan: s/p speech eval. recommended regular textures with nectar thick liquids. (5) Cellulitis Current Visit: Yes Status: Acute Assessment and plan: White count of 15.9 on admission, downtrend to 14.4 this AM. patient still complaining of LLE pain, no erythema noted. On admission, lactate of 2.04, heart rate of 112, meeting criteria for sepsis secondary to cellulitis Patient is receiving vancomycin CT of left lower extremity showed no osseous abnormality, nonspecific soft tissue swelling, no evidence of osteomyelitis. Plan: continue vancomycin day 5 of 7 Qualifiers: Site of cellulitis: extremity Site of cellulitis of extremity: lower extremity Laterality: left Qualified Code(s): L03.116 - Cellulitis of left lower limb (6) Rhabdomyolysis Current Visit: Yes Status: Resolved Assessment and plan: resolved. on admission, CK was 2625, in 400s on last draw. Qualifiers: Rhabdomyolysis type: non-traumatic Qualified Code(s): M62.82 - Rhabdomyolysis (7) Elevated troponin Current Visit: Yes Status: Resolved Assessment and plan: peak troponin .17, trended down. etiology likely secondary to demand ischemia in setting of GI bleed and anemia. echo showed LVEF 55-60%, valvular function not evaluated in limited study. patient refused to lay down for exam. (8) FRANCESCO (acute kidney injury) Current Visit: Yes Status: Resolved Assessment and plan: currently resolved. etiology likely multifactorial secondary to fall, rhabdomyolysis, dehydration. (9) Fall Current Visit: Yes Status: Acute Assessment and plan: patient believes fall to be mehcanical in nature. PT/OT evaluated, recommended SNF upon discharge- awaiting approval by insurance Qualifiers: Encounter type: initial encounter Qualified Code(s): W19.XXXA - Unspecified fall, initial encounter (10) Goals of care, counseling/discussion Current Visit: Yes Status: Acute Assessment and plan: palliative care on board. patient remains confused, unable to complete advanced directives at this time. patient's family aware regarding goals of care. please see palliative care note. (11) DVT prophylaxis Current Visit: Yes Status: Acute Assessment and plan: EPCD - Subjective Interval history: 82 year old male evaluated at bedside. There were no acute events overnight. today patient is still altered, and he is alert and oriented x1, no acute distress. he still complains of left lower extremity pain, but denies any other problems today. - Constitutional Vitals: Temp Pulse Resp BP Pulse Ox 97.8 F 71 22 129/75 93 03/14/17 04:05 03/14/17 04:05 03/14/17 04:05 03/14/17 04:05 03/14/17 04:05 General appearance: Present: A&O X 1, pleasant, no acute distress - Head Head exam: Present: atraumatic, normocephalic Additional comments: no teeth or dentures, mucosa moist. - Neck Neck exam general surgery: Present: supple, trachea midline - Respiratory Additional comments: mild bibasilar rales, breathing improved since yesterday. - Cardiovascular Cardiovascular exam: Present: RRR, +S1, +S2 Additional comments: pacemaker in place - GI/Abdominal GI/Abdominal exam: Present: normal bowel sounds, soft. Absent: distended, tenderness - Extremities Exam Additional comments: left lower extremity +1 pitting edema, right lower extremity non pitting edema, improvd from yesterday. - Neurological Exam Neurological exam: Present: alert - Skin Skin exam: Present: intact Internal Medicine: Result - Labs CBC & Chem 7: 03/14/17 07:34 03/14/17 07:34 - Impressions Impressions Chest X-Ray 03/13/17 09:37 IMPRESSION: Findings are most consistent with mild to moderate CHF, with bibasilar airspace disease likely reflecting either passive atelectasis or asymmetric edema. However, underlying pneumonia or aspiration cannot be excluded. D/ / 03/13/2017 10:34:28 Siva Hidalgo MD / harvinder Interpreting Provider: Siva Hidalgo MD Consult Discharge Plan - Plan Referrals: Twyla Sorenson MD [Non-Partnered Physician] - (Patient will possiblly go to an ECF and will follow up with PCP there) <Newton Espinal - Last Filed: 03/14/17 15:08> Date of Encounter: 03/14/17 - Assessment and plan (1) Sepsis Current Visit: Yes Status: Acute Qualifiers: Sepsis type: sepsis due to unspecified organism Qualified Code(s): A41.9 - Sepsis, unspecified organism (2) Rhabdomyolysis Current Visit: Yes Status: Resolved Qualifiers: Rhabdomyolysis type: non-traumatic Qualified Code(s): M62.82 - Rhabdomyolysis (3) Elevated troponin Current Visit: Yes Status: Resolved (4) FRANCESCO (acute kidney injury) Current Visit: Yes Status: Resolved (5) Encephalopathy acute Current Visit: Yes Status: Acute (6) Fall Current Visit: Yes Status: Acute Qualifiers: Encounter type: initial encounter Qualified Code(s): W19.XXXA - Unspecified fall, initial encounter (7) Cellulitis Current Visit: Yes Status: Acute Qualifiers: Site of cellulitis: extremity Site of cellulitis of extremity: lower extremity Laterality: left Qualified Code(s): L03.116 - Cellulitis of left lower limb (8) GI bleed Current Visit: Yes Status: Suspected Qualifiers: GI bleed type/associated pathology: melena Qualified Code(s): K92.1 - Melena - Constitutional Vitals: Temp Pulse Resp BP Pulse Ox 98.0 F 70 18 111/51 96 03/14/17 11:29 03/14/17 11:29 03/14/17 11:29 03/14/17 11:29 03/14/17 11:29 Internal Medicine: Result - Labs CBC & Chem 7: 03/14/17 07:34 03/14/17 07:34 Labs: Short CBC 03/14/17 Range/Units 07:34 WBC 13.7 H (4.3-11.1) K/mcL Hgb 8.8 L (12.9-16.9) g/dL Hct 26.2 L (37.5-50.1) % Plt Count 198 (140-400) K/mcL Neutrophils # 11.9 H (1.6-8.9) K/mcL BMP 03/14/17 07:34 Sodium 141 Potassium 3.3 L Chloride 99 Carbon Dioxide 36 H BUN 20 Creatinine 0.83 Glucose 101 H Calcium 8.1 L - Impressions Impressions Chest X-Ray 03/13/17 09:37 IMPRESSION: Findings are most consistent with mild to moderate CHF, with bibasilar airspace disease likely reflecting either passive atelectasis or asymmetric edema. However, underlying pneumonia or aspiration cannot be excluded. D/ / 03/13/2017 10:34:28 Siva Hidalgo MD / [email or web address] Interpreting Provider: Siva Hidalgo MD - Attending Attestation I examined this patient and my medical decision-making was reviewed with the Resident Physician on 03/14/17. I agree with the documented findings, disposition and treatment plan as described except to the extent set forth below. Seen and evaluated at bedside 82 M admitted for management of of fall, sepsis (tachycardia on presentation, secondary to LLE cellulitis, rhabdomyolysis and FRANCESCO, elevated troponin, acute encephalopathy, acute blood loss anemia from a bleeding duodenal ulcer,Afib on anticoagulation Hospital stay complicated by acute hypoxic respirator failure secondary to pulmonary edema Physical exam: Afebrile, tachypneic, he is AAOX2, moved all extremities equally , anterior chest ausculation clear bilaterally, abdomen is scaphoid, extremities with LLE redness and swelling(much more improved today), trace pedal edema Labs and Imaging reviewed: Slight drop in Hb, FRANCESCO is resolved, Leukocytosis improving, Mild hypokalemia ECHO poor study but EF is preserved CXR done stat 03/13 showed pulmonary edema, r/o aspiration A/P *Acute hypoxic respiratory failure secondary to CHFpEF: Possibly from IVF hydration. Improved, continue lasix po. Continue Supplemental O2. [employer]IDENT [employer]GR[employer] evaluation noted. Low risk for aspiration, continue Unasyn *Severe Sepsis secondary to cellulitis, improving, continue vancomycin, leukocytosis is improving. LLE CT ruled out OM, or abscess collection, continue current management *FRANCESCO secondary to rhabdomyolysis, resolved *Elevated troponin: Adynamic, down trending. ECHO is without WMA and EF is preserved *Cellulitis, continue Vancomycin, Day 5, complete 7 days if patient remains inpatient no abscess collection. NO abscess collection per CT *Acute encephalopathy-resolved, per patient's son, he is back to baseline. AMS was multifactorial from FRANCESCO(metabolic, Sepsis, R/O underlying dementia) *Suspected GI bleed-s/p EGD, with evidence of friable mucosa, crated duodenal ucler with evidence of prior bleed. H.pylori is negative. Continue PPI *Acute blood loss anemia: s/p 2 units of RBCS, Slight drop in Hb today. Monitor q12h till stable. *Afib: HR controlled, continue to hold Eliquis. Will discuss possible need for discontinuation of intermediate designer anticoagulation upon discharge SCDs for DVT prophylaxis Discharge dispo when stable is for SNF/ECF Rest of details as in the resident physician documentation.
[2017-03-14] MEDS: Sucralfate 1 GM TABLET PO SCH ×3 (06:40→17:13)
[2017-03-14 07:54] LABS: Basophils % 0.1 %; Eosinophils # 0.1 K/mcL (0.0-0.6); Eosinophils % 0.4 %; Hematocrit 26.2 % (37.5-50.1); Hemoglobin 8.8 g/dL (12.9-16.9); Immature Granulocytes % 0.9 % (0-4); Lymphocytes # 0.9 K/mcL (0.6-4.6); Lymphocytes % 6.7 %; Mean Corpuscular HGB Conc 33.6 g/dL (31.6-35.5); Mean Corpuscular Hemoglobin 30.9 pg (28.0-33.3); Mean Corpuscular Volume 91.9 fL (83.0-100.0); Mean Platelet Volume 10.1 fL (9.4-12.4); Monocytes # 0.8 K/mcL (0.0-1.3); Monocytes % 5.7 %; Neutrophils # 11.9 K/mcL (1.6-8.9); Platelet Count 198 K/mcL (140-400); Red Blood Count 2.85 M/mcL (4.19-5.50); Red Cell Distribution Width 14.4 % (11.5-14.5); Segmented Neutrophils % 86.2 %
[2017-03-14 08:05] LABS: BUN/Creatinine Ratio 24 (6-26); Blood Urea Nitrogen 20 mg/dL (8-26); Calcium 8.1 mg/dL (8.6-10.8); Carbon Dioxide 36 mEq/L (19-29); Chloride 99 mEq/L (98-109); Glucose 101 mg/dL (70-99); Osmolality,Calculated 295 (280-300); Potassium 3.3 mEq/L (3.5-4.5); Sodium 141 mEq/L (136-145); eGFR For African Americans > 60 (> 60); eGFR For Non-African Americans > 60 (> 60)
[2017-03-14] MEDS ORDERED: Furosemide 20 MG/2 ML VIAL IVP SCH (09:00)
[2017-03-14] MEDS: *HR* HYDROcodone/Acet 5/325 mg TABLET PO PRN (11:17)
[2017-03-14] MEDS ORDERED: Potassium Chloride Elixir 20 MEQ/15 ML UDC PO ONE (11:27)
[2017-03-14 16:22] LABS: Basophils % 0.1 %; Eosinophils # 0.1 K/mcL (0.0-0.6); Eosinophils % 0.8 %; Hematocrit 24.5 % (37.5-50.1); Hemoglobin 8.1 g/dL (12.9-16.9); Immature Granulocytes % 1.2 % (0-4); Lymphocytes # 1.2 K/mcL (0.6-4.6); Mean Corpuscular HGB Conc 33.1 g/dL (31.6-35.5); Mean Corpuscular Hemoglobin 30.5 pg (28.0-33.3); Mean Corpuscular Volume 92.1 fL (83.0-100.0); Mean Platelet Volume 10.3 fL (9.4-12.4); Monocytes # 0.9 K/mcL (0.0-1.3); Monocytes % 6.6 %; Neutrophils # 10.5 K/mcL (1.6-8.9); Platelet Count 221 K/mcL (140-400); Red Blood Count 2.66 M/mcL (4.19-5.50); Red Cell Distribution Width 14.4 % (11.5-14.5); Segmented Neutrophils % 82.3 %
[2017-03-15] MEDS: Sucralfate 1 GM TABLET PO SCH ×5 (00:32→21:19)
[2017-03-15] MEDS: Vancomycin 1,000 MG in D5% in Water 250 ML IVPB SCH ×2 (00:32→22:53)
[2017-03-15] MEDS: Ampicillin/Sulbactam 1,500 MG in 0.9 % Sodium Chloride Mini Bag 100 ML IVPB SCH ×4 (00:45→17:35)
[2017-03-15 06:25] LABS: Basophils % 0.1 %; Eosinophils # 0.1 K/mcL (0.0-0.6); Eosinophils % 0.6 %; Hematocrit 27.4 % (37.5-50.1); Immature Granulocytes % 1.2 % (0-4); Lymphocytes # 0.9 K/mcL (0.6-4.6); Lymphocytes % 7.6 %; Mean Corpuscular HGB Conc 32.8 g/dL (31.6-35.5); Mean Corpuscular Hemoglobin 30.4 pg (28.0-33.3); Mean Corpuscular Volume 92.6 fL (83.0-100.0); Mean Platelet Volume 9.9 fL (9.4-12.4); Monocytes # 0.8 K/mcL (0.0-1.3); Monocytes % 6.4 %; Neutrophils # 10.4 K/mcL (1.6-8.9); Platelet Count 248 K/mcL (140-400); Red Blood Count 2.96 M/mcL (4.19-5.50); Red Cell Distribution Width 14.2 % (11.5-14.5); Segmented Neutrophils % 84.1 %
[2017-03-15 06:34] LABS: BUN/Creatinine Ratio 21 (6-26); Blood Urea Nitrogen 17 mg/dL (8-26); Calcium 8.1 mg/dL (8.6-10.8); Carbon Dioxide 38 mEq/L (19-29); Chloride 94 mEq/L (98-109); Glucose 99 mg/dL (70-99); Magnesium 1.2 mg/dL (1.6-2.6); Osmolality,Calculated 288 (280-300); Potassium 3.2 mEq/L (3.5-4.5); Sodium 138 mEq/L (136-145); eGFR For African Americans > 60 (> 60); eGFR For Non-African Americans > 60 (> 60)
[2017-03-15] MEDS: *HR* HYDROcodone/Acet 5/325 mg TABLET PO PRN ×2 (06:52→23:12)
[2017-03-15] MEDS ORDERED: Furosemide 40 MG TABLET PO SCH (09:00)
[2017-03-15] MEDS ORDERED: Potassium Chloride Elixir 20 MEQ/15 ML UDC PO ONE (09:16)
[2017-03-15] MEDS ORDERED: Magnesium Sulfate 2 GM in D5% in Water 100 ML IVPB ONE (09:16)
--- NOTE | 2017-03-15 14:03 | Internal Med Progress Note ---
<Brooke Reilly - Last Filed: 03/15/17 13:59> Date of Encounter: 03/15/17 Time of Encounter: 10:00 - Assessment and plan (1) GI bleed Current Visit: Yes Status: Suspected Assessment and plan: patient complained of dark stools on arrival. total of 2 units PRBCs transfused. EGD on 03/12/17 showed one nonbleeding duodenal ulcer with pigmented material, duodenitis with biopsy pendng. erythematous mucosa in gastric body, which was biopsied, and small hiatal hernia. H. Pylori culture negative. Plan: Hg stable, continue to monitor. continue omepraole 40mg PO daily for 3 months awaiting assisted placement and insurance approval. Qualifiers: GI bleed type/associated pathology: melena Qualified Code(s): K92.1 - Melena (2) Afib Current Visit: Yes Status: Acute Assessment and plan: pacemaker in place. patient was formerly on Eliquis Plan: stopped eliquis secondary to fall and GI bleed. Qualifiers: Atrial fibrillation type: chronic Qualified Code(s): I48.2 - Chronic atrial fibrillation (3) Acute respiratory failure with hypoxia Current Visit: Yes Status: Acute Assessment and plan: patient requiring 2L nasal canula, did not require oxygen at home. CXR showed mild to moderate CHF with bibasilar airspace disease, atalectasis vs. edema, possible underlying pneumonia or aspiration. Plan: unasyn day 3 decreased lasix to 20mg PO daily. patient is diuresing well. (4) Encephalopathy acute Current Visit: Yes Status: Acute Assessment and plan: etiology likely multifactorial in setting of dehydration, fall, baseline dementia, rhabdo, cellulitis, symptomatic anemia patient is still altered. Echo was limited and valvular function not evaluated. Plan: s/p speech eval. recommended regular textures with nectar thick liquids. (5) Cellulitis Current Visit: Yes Status: Acute Assessment and plan: White count of 15.9 on admission, downtrend to 14.4 this AM. patient still complaining of LLE pain, no erythema noted. On admission, lactate of 2.04, heart rate of 112, meeting criteria for sepsis secondary to cellulitis Patient is receiving vancomycin CT of left lower extremity showed no osseous abnormality, nonspecific soft tissue swelling, no evidence of osteomyelitis. Plan: continue vancomycin day 6 of 7 Qualifiers: Site of cellulitis: extremity Site of cellulitis of extremity: lower extremity Laterality: left Qualified Code(s): L03.116 - Cellulitis of left lower limb (6) Rhabdomyolysis Current Visit: Yes Status: Resolved Assessment and plan: resolved. on admission, CK was 2625, in 400s on last draw. Qualifiers: Rhabdomyolysis type: non-traumatic Qualified Code(s): M62.82 - Rhabdomyolysis (7) Elevated troponin Current Visit: Yes Status: Resolved Assessment and plan: peak troponin .17, trended down. etiology likely secondary to demand ischemia in setting of GI bleed and anemia. echo showed LVEF 55-60%, valvular function not evaluated in limited study. patient refused to lay down for exam. (8) FRANCESCO (acute kidney injury) Current Visit: Yes Status: Resolved Assessment and plan: currently resolved. etiology likely multifactorial secondary to fall, rhabdomyolysis, dehydration. (9) Fall Current Visit: Yes Status: Acute Assessment and plan: patient believes fall to be mehcanical in nature. PT/OT evaluated, recommended SNF upon discharge- awaiting approval by insurance Qualifiers: Encounter type: initial encounter Qualified Code(s): W19.XXXA - Unspecified fall, initial encounter (10) Goals of care, counseling/discussion Current Visit: Yes Status: Acute Assessment and plan: palliative care on board. patient remains confused, unable to complete advanced directives at this time. patient's family aware regarding goals of care. please see palliative care note. (11) DVT prophylaxis Current Visit: Yes Status: Acute Assessment and plan: EPCD - Subjective Interval history: 82 year old male evaluated at bedside. He was sitting up in bed eating snacks during evaluation. He is alert and oriented x2 today, no acute distress. He reports continued pain in his left leg from his fall. He denies any further complaints today. No family was present at bedside during evaluation. - Constitutional Vitals: Temp Pulse Resp BP Pulse Ox 98.1 F 67 16 106/69 97 03/15/17 11:19 03/15/17 11:19 03/15/17 11:19 03/15/17 11:19 03/15/17 11:19 General appearance: Present: A&O X 2, pleasant, no acute distress - Head Head exam: Present: atraumatic, normocephalic - Neck Neck exam general surgery: Present: supple, trachea midline - Respiratory Additional comments: mild bilateral lower lobe crackles present. - Cardiovascular Cardiovascular exam: Present: RRR, +S1, +S2 Additional comments: pacemaker in place. - GI/Abdominal GI/Abdominal exam: Present: normal bowel sounds, soft. Absent: distended, tenderness - Extremities Exam Additional comments: left ankle swollen, left lower extremity mildly erythematous. pain in left lower extremity. +2 pitting edema on left lower extremity. no edema present on right lower extremity. - Neurological Exam Neurological exam: Present: alert Additional comments: altered mental status, alert and oriented x2 - Psychiatric Psychiatric exam: Present: normal affect, normal mood - Skin Skin exam: Present: intact Internal Medicine: Result - Labs CBC & Chem 7: 03/15/17 05:42 03/15/17 05:42 Labs: Short CBC 03/14/17 03/15/17 Range/Units 15:54 05:42 WBC 12.8 H 12.4 H (4.3-11.1) K/mcL Hgb 8.1 L 9.0 L (12.9-16.9) g/dL Hct 24.5 L 27.4 L (37.5-50.1) % Plt Count 221 248 (140-400) K/mcL Neutrophils # 10.5 H 10.4 H (1.6-8.9) K/mcL BMP 03/15/17 05:42 Sodium 138 Potassium 3.2 L Chloride 94 L Carbon Dioxide 38 H BUN 17 Creatinine 0.80 Glucose 99 Calcium 8.1 L Consult Discharge Plan - Plan Referrals: Twyla Sorenson MD [Non-Partnered Physician] - (Patient will possiblly go to an ECF and will follow up with PCP there) <Newton Espinal T - Last Filed: 03/15/17 15:14> Date of Encounter: 03/15/17 - Assessment and plan (1) Sepsis Current Visit: Yes Status: Acute Qualifiers: Sepsis type: sepsis due to unspecified organism Qualified Code(s): A41.9 - Sepsis, unspecified organism (2) Rhabdomyolysis Current Visit: Yes Status: Resolved Qualifiers: Rhabdomyolysis type: non-traumatic Qualified Code(s): M62.82 - Rhabdomyolysis (3) Elevated troponin Current Visit: Yes Status: Resolved (4) FRANCESCO (acute kidney injury) Current Visit: Yes Status: Resolved (5) Encephalopathy acute Current Visit: Yes Status: Acute (6) Fall Current Visit: Yes Status: Acute Qualifiers: Encounter type: initial encounter Qualified Code(s): W19.XXXA - Unspecified fall, initial encounter (7) Cellulitis Current Visit: Yes Status: Acute Qualifiers: Site of cellulitis: extremity Site of cellulitis of extremity: lower extremity Laterality: left Qualified Code(s): L03.116 - Cellulitis of left lower limb (8) GI bleed Current Visit: Yes Status: Suspected Qualifiers: GI bleed type/associated pathology: melena Qualified Code(s): K92.1 - Melena - Constitutional Vitals: Temp Pulse Resp BP Pulse Ox 98.1 F 67 16 106/69 97 03/15/17 11:19 03/15/17 11:19 03/15/17 11:19 03/15/17 11:19 03/15/17 11:19 Internal Medicine: Result - Labs CBC & Chem 7: 03/15/17 05:42 03/15/17 05:42 Labs: Short CBC 03/14/17 03/15/17 Range/Units 15:54 05:42 WBC 12.8 H 12.4 H (4.3-11.1) K/mcL Hgb 8.1 L 9.0 L (12.9-16.9) g/dL Hct 24.5 L 27.4 L (37.5-50.1) % Plt Count 221 248 (140-400) K/mcL Neutrophils # 10.5 H 10.4 H (1.6-8.9) K/mcL BMP 03/15/17 05:42 Sodium 138 Potassium 3.2 L Chloride 94 L Carbon Dioxide 38 H BUN 17 Creatinine 0.80 Glucose 99 Calcium 8.1 L - Attending Attestation I examined this patient and my medical decision-making was reviewed with the Resident Physician on 03/15/17. I agree with the documented findings, disposition and treatment plan as described except to the extent set forth below. Seen and evaluated at bedside 82 M admitted for management of of fall, sepsis (tachycardia on presentation, secondary to LLE cellulitis, rhabdomyolysis and FRANCESCO, elevated troponin, acute encephalopathy, acute blood loss anemia from a bleeding duodenal ulcer,Afib on anticoagulation Hospital stay complicated by acute hypoxic respirator failure secondary to pulmonary edema, and aspiration Physical exam: Afebrile, tachypneic, he is AAOX2, moved all extremities equally , anterior chest ausculation clear bilaterally, abdomen is scaphoid, extremities with LLE redness and swelling(much more improved today), trace pedal edema Labs and Imaging reviewed: Labs are stable,mild hypokalemia A/P *Acute hypoxic respiratory failure secondary to CHFpEF: Possibly from IVF hydration. Improved, decrease lasix. Continue Supplemental O2 with goal to wean off *Severe Sepsis secondary to cellulitis, improving, continue vancomycin to complete 7 days , then disconitnue, leukocytosis is improving. LLE CT ruled out OM, or abscess collection, continue current management *FRANCESCO secondary to rhabdomyolysis, resolved *Elevated troponin: Adynamic, down trending. ECHO is without WMA and EF is preserved *Cellulitis, continue Vancomycin, Day 5, complete 7 days if patient remains inpatient no abscess collection. NO abscess collection per CT *Acute encephalopathy-resolved, per patient's son, he is back to baseline. AMS was multifactorial from FRANCESCO(metabolic, Sepsis, R/O underlying dementia) *Suspected GI bleed-s/p EGD, with evidence of friable mucosa, crated duodenal ucler with evidence of prior bleed. H.pylori is negative. Continue PPI *Acute blood loss anemia: s/p 2 units of RBCS, Slight drop in Hb today. Monitor q12h till stable. *Afib: HR controlled, continue to hold Eliquis. Will discuss possible need for discontinuation of jail anticoagulation upon discharge SCDs for DVT prophylaxis Discharge dispo when stable is for SNF/ECF Rest of details as in the resident physician documentation.
[2017-03-16] MEDS: Ampicillin/Sulbactam 1,500 MG in 0.9 % Sodium Chloride Mini Bag 100 ML IVPB SCH ×5 (00:24→23:18)
[2017-03-16 06:12] LABS: Basophils % 0.2 %; Eosinophils # 0.1 K/mcL (0.0-0.6); Hematocrit 28.1 % (37.5-50.1); Hemoglobin 9.3 g/dL (12.9-16.9); Immature Granulocytes % 1.2 % (0-4); Lymphocytes # 1.1 K/mcL (0.6-4.6); Lymphocytes % 7.5 %; Mean Corpuscular HGB Conc 33.1 g/dL (31.6-35.5); Mean Corpuscular Hemoglobin 30.8 pg (28.0-33.3); Mean Platelet Volume 9.9 fL (9.4-12.4); Monocytes # 0.9 K/mcL (0.0-1.3); Monocytes % 6.2 %; Neutrophils # 12.3 K/mcL (1.6-8.9); Platelet Count 285 K/mcL (140-400); Red Blood Count 3.02 M/mcL (4.19-5.50); Red Cell Distribution Width 14.2 % (11.5-14.5); Segmented Neutrophils % 83.9 %
[2017-03-16 06:29] LABS: BUN/Creatinine Ratio 23 (6-26); Blood Urea Nitrogen 20 mg/dL (8-26); Calcium 8.2 mg/dL (8.6-10.8); Carbon Dioxide 37 mEq/L (19-29); Chloride 95 mEq/L (98-109); Glucose 96 mg/dL (70-99); Magnesium 1.4 mg/dL (1.6-2.6); Osmolality,Calculated 286 (280-300); Potassium 3.8 mEq/L (3.5-4.5); Sodium 137 mEq/L (136-145); eGFR For African Americans > 60 (> 60); eGFR For Non-African Americans > 60 (> 60)
[2017-03-16] MEDS ORDERED: Magnesium Sulfate 2 GM in D5% in Water 100 ML IVPB ONE (06:47)
[2017-03-16] MEDS: Sucralfate 1 GM TABLET PO SCH ×4 (08:37→21:37)
[2017-03-16] MEDS: Furosemide 40 MG TABLET PO SCH (08:38)
[2017-03-16] MEDS ORDERED: Furosemide 20 MG/2 ML VIAL IVP SCH (09:00)
--- NOTE | 2017-03-16 11:15 | Event Note ---
Date of Encounter: 03/16/17 Time of Encounter: 11:14 Patient is awaiting placement at [facility] for rehab. Palliative care is not managing symptoms and goals of care have been established. Discussed case with hospitalist, the palliative care team will sign off. Thank you for the consultation.
--- NOTE | 2017-03-16 13:02 | Internal Med Progress Note ---
<Brooke Reilly - Last Filed: 03/16/17 12:59> Date of Encounter: 03/16/17 Time of Encounter: 09:00 - Assessment and plan (1) GI bleed Current Visit: Yes Status: Suspected Assessment and plan: patient complained of dark stools on arrival. total of 2 units PRBCs transfused. EGD on 03/12/17 showed one nonbleeding duodenal ulcer with pigmented material, duodenitis with biopsy pendng. erythematous mucosa in gastric body, which was biopsied, and small hiatal hernia. H. Pylori culture negative. Plan: Hg stable, continue to monitor. continue omepraole 40mg PO daily for 3 months awaiting [facility] placement and insurance approval. Qualifiers: GI bleed type/associated pathology: melena Qualified Code(s): K92.1 - Melena (2) Afib Current Visit: Yes Status: Acute Assessment and plan: pacemaker in place. patient was formerly on Eliquis Plan: stopped eliquis secondary to fall and GI bleed. Qualifiers: Atrial fibrillation type: chronic Qualified Code(s): I48.2 - Chronic atrial fibrillation (3) Acute respiratory failure with hypoxia Current Visit: Yes Status: Acute Assessment and plan: patient requiring 2L nasal canula, did not require oxygen at home. CXR showed mild to moderate CHF with bibasilar airspace disease, atalectasis vs. edema, possible underlying pneumonia or aspiration. Plan: unasyn day 4 decreased lasix to 20mg PO daily. patient is diuresing well. (4) Encephalopathy acute Current Visit: Yes Status: Acute Assessment and plan: etiology likely multifactorial in setting of dehydration, fall, baseline dementia, rhabdo, cellulitis, symptomatic anemia patient is still altered. Echo was limited and valvular function not evaluated. Plan: s/p speech eval. recommended regular textures with nectar thick liquids. (5) Cellulitis Current Visit: Yes Status: Acute Assessment and plan: White count of 15.9 on admission, downtrend to 14.4 this AM. patient still complaining of LLE pain, no erythema noted. On admission, lactate of 2.04, heart rate of 112, meeting criteria for sepsis secondary to cellulitis CT of left lower extremity showed no osseous abnormality, nonspecific soft tissue swelling, no evidence of osteomyelitis. Plan: continue vancomycin last dose today. Qualifiers: Site of cellulitis: extremity Site of cellulitis of extremity: lower extremity Laterality: left Qualified Code(s): L03.116 - Cellulitis of left lower limb (6) Rhabdomyolysis Current Visit: Yes Status: Resolved Assessment and plan: resolved. on admission, CK was 2625, in 400s on last draw. Qualifiers: Rhabdomyolysis type: non-traumatic Qualified Code(s): M62.82 - Rhabdomyolysis (7) Elevated troponin Current Visit: Yes Status: Resolved Assessment and plan: peak troponin .17, trended down. etiology likely secondary to demand ischemia in setting of GI bleed and anemia. echo showed LVEF 55-60%, valvular function not evaluated in limited study. patient refused to lay down for exam. (8) FRANCESCO (acute kidney injury) Current Visit: Yes Status: Resolved Assessment and plan: currently resolved. etiology likely multifactorial secondary to fall, rhabdomyolysis, dehydration. (9) Fall Current Visit: Yes Status: Acute Assessment and plan: patient believes fall to be mehcanical in nature. PT/OT evaluated, recommended SNF upon discharge- awaiting approval by insurance Qualifiers: Encounter type: initial encounter Qualified Code(s): W19.XXXA - Unspecified fall, initial encounter (10) Goals of care, counseling/discussion Current Visit: Yes Status: Acute Assessment and plan: palliative care on board. patient remains confused, unable to complete advanced directives at this time. patient's family aware regarding goals of care. please see palliative care note. (11) DVT prophylaxis Current Visit: Yes Status: Acute Assessment and plan: EPCD - Subjective Interval history: 82 year old male evaluated at bedside. He was sitting up in bed watching tv. he is still alert and oriented x1, no acute distress. - Constitutional Vitals: Temp Pulse Resp BP Pulse Ox 98.1 F 74 18 122/55 96 03/16/17 11:28 03/16/17 11:28 03/16/17 11:28 03/16/17 11:28 03/16/17 11:28 General appearance: Present: A&O X 1, pleasant, no acute distress - Head Head exam: Present: atraumatic, normocephalic - Neck Neck exam general surgery: Present: supple, trachea midline - Respiratory Respiratory exam: Present: CTAB - Cardiovascular Cardiovascular exam: Present: irregular rhythm Additional comments: pacemaker in place - GI/Abdominal GI/Abdominal exam: Present: normal bowel sounds, soft. Absent: distended, tenderness - Extremities Exam Extremities exam: Present: radial pulses palpable and symetrical. Absent: cyanotic, pedal edema Additional comments: left lower leg no longer erythematous, +1 pitting edema. right lower leg normal. - Neurological Exam Neurological exam: Present: alert - Psychiatric Psychiatric exam: Present: normal affect, normal mood Internal Medicine: Result - Labs CBC & Chem 7: 03/16/17 05:19 03/16/17 05:19 Labs: Short CBC 03/16/17 Range/Units 05:19 WBC 14.6 H (4.3-11.1) K/mcL Hgb 9.3 L (12.9-16.9) g/dL Hct 28.1 L (37.5-50.1) % Plt Count 285 (140-400) K/mcL Neutrophils # 12.3 H (1.6-8.9) K/mcL BMP 03/16/17 05:19 Sodium 137 Potassium 3.8 Chloride 95 L Carbon Dioxide 37 H BUN 20 Creatinine 0.86 Glucose 96 Calcium 8.2 L Consult Discharge Plan - Plan Referrals: Twyla Sorenson MD [Non-Partnered Physician] - (Patient will possiblly go to an ECF and will follow up with PCP there) <Newton Espinal - Last Filed: 03/16/17 16:20> Date of Encounter: 03/16/17 - Assessment and plan (1) Sepsis Current Visit: Yes Status: Acute Qualifiers: Sepsis type: sepsis due to unspecified organism Qualified Code(s): A41.9 - Sepsis, unspecified organism (2) Rhabdomyolysis Current Visit: Yes Status: Resolved Qualifiers: Rhabdomyolysis type: non-traumatic Qualified Code(s): M62.82 - Rhabdomyolysis (3) Elevated troponin Current Visit: Yes Status: Resolved (4) FRANCESCO (acute kidney injury) Current Visit: Yes Status: Resolved (5) Encephalopathy acute Current Visit: Yes Status: Acute (6) Fall Current Visit: Yes Status: Acute Qualifiers: Encounter type: initial encounter Qualified Code(s): W19.XXXA - Unspecified fall, initial encounter (7) Cellulitis Current Visit: Yes Status: Acute Qualifiers: Site of cellulitis: extremity Site of cellulitis of extremity: lower extremity Laterality: left Qualified Code(s): L03.116 - Cellulitis of left lower limb (8) GI bleed Current Visit: Yes Status: Suspected Qualifiers: GI bleed type/associated pathology: melena Qualified Code(s): K92.1 - Melena - Constitutional Vitals: Temp Pulse Resp BP Pulse Ox 98.6 F 75 18 121/56 94 03/16/17 15:35 03/16/17 15:35 03/16/17 15:35 03/16/17 15:35 03/16/17 15:35 Internal Medicine: Result - Labs CBC & Chem 7: 03/16/17 05:19 03/16/17 05:19 Labs: Short CBC 03/16/17 Range/Units 05:19 WBC 14.6 H (4.3-11.1) K/mcL Hgb 9.3 L (12.9-16.9) g/dL Hct 28.1 L (37.5-50.1) % Plt Count 285 (140-400) K/mcL Neutrophils # 12.3 H (1.6-8.9) K/mcL BMP 03/16/17 05:19 Sodium 137 Potassium 3.8 Chloride 95 L Carbon Dioxide 37 H BUN 20 Creatinine 0.86 Glucose 96 Calcium 8.2 L - Attending Attestation I examined this patient and my medical decision-making was reviewed with the Resident Physician on 03/16/17. I agree with the documented findings, disposition and treatment plan as described except to the extent set forth below. Seen and evaluated at bedside 82 M admitted for management of of fall, sepsis (tachycardia on presentation, secondary to LLE cellulitis, rhabdomyolysis and FRANCESCO, elevated troponin, acute encephalopathy, acute blood loss anemia from a bleeding duodenal ulcer,Afib on anticoagulation Hospital stay complicated by acute hypoxic respirator failure secondary to pulmonary edema, and aspiration He is medically stable and awaiting placement Physical exam: Afebrile, tachypneic, he is AAOX2, moved all extremities equally , anterior chest ausculation clear bilaterally, abdomen is scaphoid, His LLE cellulitis and pedal edema is resolved Labs and Imaging reviewed: Mild leukocytosis, possibly hemoconcentration A/P *Acute hypoxic respiratory failure secondary to CHFpEF: Possibly from IVF hydration. Improved, decrease lasix. Continue Supplemental O2 with goal to wean off *Severe Sepsis secondary to cellulitis, improving,D/C vancomycin-patient has completed 7 days , New leukocytosis possibly from dehydration *FRANCESCO secondary to rhabdomyolysis, resolved. Decrease lasix *Elevated troponin: Adynamic, down trending. ECHO is without WMA and EF is preserved *Cellulitis, D/C vanco. NO abscess collection per CT *Acute encephalopathy-resolved, per patient's son, he is back to baseline. AMS was multifactorial from FRANCESCO(metabolic, Sepsis, R/O underlying dementia) *Suspected GI bleed-s/p EGD, with evidence of friable mucosa, crated duodenal ucler with evidence of prior bleed. H.pylori is negative. Continue PPI *Acute blood loss anemia: s/p 2 units of RBCS, Hb stable *Afib: HR controlled, continue to hold Eliquis. Will discuss possible need for discontinuation of [facility] treat[facility] anticoagulation upon discharge SCDs for DVT prophylaxis Discharge dispo when stable is for SNF/ECF Rest of details as in the resident physician documentation.
[2017-03-16] MEDS: *HR* HYDROcodone/Acet 5/325 mg TABLET PO PRN (21:37)
[2017-03-16] MEDS: Vancomycin 1,000 MG in D5% in Water 250 ML IVPB SCH (22:04)
[2017-03-17] MEDS: Ampicillin/Sulbactam 1,500 MG in 0.9 % Sodium Chloride Mini Bag 100 ML IVPB SCH ×3 (05:39→17:11)
[2017-03-17 06:05] LABS: Eosinophils # 0.2 K/mcL (0.0-0.6); Eosinophils % 1.3 %; Hematocrit 25.6 % (37.5-50.1); Hemoglobin 8.3 g/dL (12.9-16.9); Immature Granulocytes % 1.3 % (0-4); Lymphocytes # 0.9 K/mcL (0.6-4.6); Lymphocytes % 7.8 %; Mean Corpuscular HGB Conc 32.4 g/dL (31.6-35.5); Mean Corpuscular Hemoglobin 30.4 pg (28.0-33.3); Mean Corpuscular Volume 93.8 fL (83.0-100.0); Mean Platelet Volume 9.7 fL (9.4-12.4); Monocytes # 0.7 K/mcL (0.0-1.3); Monocytes % 5.5 %; Platelet Count 307 K/mcL (140-400); Red Blood Count 2.73 M/mcL (4.19-5.50); Segmented Neutrophils % 84.1 %
[2017-03-17 06:19] LABS: BUN/Creatinine Ratio 23 (6-26); Blood Urea Nitrogen 21 mg/dL (8-26); Calcium 7.9 mg/dL (8.6-10.8); Carbon Dioxide 36 mEq/L (19-29); Chloride 93 mEq/L (98-109); Glucose 93 mg/dL (70-99); Osmolality,Calculated 283 (280-300); Potassium 3.6 mEq/L (3.5-4.5); Sodium 135 mEq/L (136-145); eGFR For African Americans > 60 (> 60); eGFR For Non-African Americans > 60 (> 60)
[2017-03-17] MEDS: *HR* HYDROcodone/Acet 5/325 mg TABLET PO PRN ×2 (07:26→12:51)
[2017-03-17] MEDS: Furosemide 40 MG TABLET PO SCH (07:27)
[2017-03-17] MEDS: Sucralfate 1 GM TABLET PO SCH ×4 (07:27→22:38)
--- NOTE | 2017-03-17 08:55 | Internal Med Progress Note ---
<Brooke Reilly - Last Filed: 03/17/17 13:32> Date of Encounter: 03/17/17 Time of Encounter: 08:53 - Assessment and plan (1) Fall Current Visit: Yes Status: Acute Assessment and plan: patient believes fall to be mehcanical in nature. PT/OT evaluated, recommended SNF upon discharge- awaiting approval by insurance patient still complains of left lower extremity pain Plan: awaiting left lower extremity doppler and tib/fib xrays Qualifiers: Encounter type: subsequent encounter Qualified Code(s): W19.XXXD - Unspecified fall, subsequent encounter (2) GI bleed Current Visit: Yes Status: Suspected Assessment and plan: patient complained of dark stools on arrival. total of 2 units PRBCs transfused. EGD on 03/12/17 showed one nonbleeding duodenal ulcer with pigmented material, duodenitis with biopsy pendng. erythematous mucosa in gastric body, which was biopsied, and small hiatal hernia. H. Pylori culture negative. Plan: Hg stable, continue to monitor. continue omepraole 40mg PO daily for 3 months awaiting care home placement and insurance approval. Qualifiers: GI bleed type/associated pathology: melena Qualified Code(s): K92.1 - Melena (3) Afib Current Visit: Yes Status: Acute Assessment and plan: pacemaker in place. patient was formerly on Eliquis Plan: stopped eliquis secondary to fall and GI bleed. Qualifiers: Atrial fibrillation type: chronic Qualified Code(s): I48.2 - Chronic atrial fibrillation (4) Acute respiratory failure with hypoxia Current Visit: Yes Status: Acute Assessment and plan: patient requiring nasal canula, did not require oxygen at home. CXR showed mild to moderate CHF with bibasilar airspace disease, atalectasis vs. edema, possible underlying pneumonia or aspiration. concern for aspiration in setting of altered mental status Plan: unasyn day 5 continue lasix to 20mg PO daily. (5) Encephalopathy acute Current Visit: Yes Status: Acute Assessment and plan: etiology likely multifactorial in setting of dehydration, fall, baseline dementia, rhabdo, cellulitis, symptomatic anemia patient is still altered. Echo was limited and valvular function not evaluated. Plan: s/p speech eval. recommended regular textures with nectar thick liquids. (6) Cellulitis Current Visit: Yes Status: Acute Assessment and plan: White count of 15.9 on admission, downtrend to 11.9 this AM. patient still complaining of LLE pain, with erythema noted. On admission, lactate of 2.04, heart rate of 112, meeting criteria for sepsis secondary to cellulitis CT of left lower extremity showed no osseous abnormality, nonspecific soft tissue swelling, no evidence of osteomyelitis. Plan: completed 7 days of vancomycin Qualifiers: Site of cellulitis: extremity Site of cellulitis of extremity: lower extremity Laterality: left Qualified Code(s): L03.116 - Cellulitis of left lower limb (7) Rhabdomyolysis Current Visit: Yes Status: Resolved Assessment and plan: resolved. on admission, CK was 2625, in 400s on last draw. Qualifiers: Rhabdomyolysis type: non-traumatic Qualified Code(s): M62.82 - Rhabdomyolysis (8) Elevated troponin Current Visit: Yes Status: Resolved Assessment and plan: peak troponin .17, trended down. etiology likely secondary to demand ischemia in setting of GI bleed and anemia. echo showed LVEF 55-60%, valvular function not evaluated in limited study. patient refused to lay down for exam. (9) FRANCESCO (acute kidney injury) Current Visit: Yes Status: Resolved Assessment and plan: currently resolved. etiology likely multifactorial secondary to fall, rhabdomyolysis, dehydration. (10) Goals of care, counseling/discussion Current Visit: Yes Status: Acute Assessment and plan: palliative care has evaluated patient remains confused, unable to complete advanced directives at this time. patient's family aware regarding goals of care. please see palliative care note. (11) DVT prophylaxis Current Visit: Yes Status: Acute Assessment and plan: EPCD - Subjective Interval history: 82 year old male evaluated at bedside. Today he is saying his left lower extremity hurts worse than before. He remains alert and oriented x1. He appears to be in distress from pain with movement of his left lower extremity. Patient was sitting up in bed eating breakfast during exam. - Constitutional Vitals: Temp Pulse Resp BP Pulse Ox 98.1 F 61 18 136/72 98 03/17/17 07:58 03/17/17 07:58 03/17/17 07:58 03/17/17 07:58 03/17/17 07:58 General appearance: Present: A&O X 1, pleasant, no acute distress - Head Head exam: Present: atraumatic, normocephalic - Neck Neck exam general surgery: Present: supple, trachea midline - Respiratory Respiratory exam: Present: CTAB - Cardiovascular Cardiovascular exam: Present: RRR, +S1, +S2 - GI/Abdominal GI/Abdominal exam: Present: normal bowel sounds, soft. Absent: distended, tenderness - Extremities Exam Additional comments: left lower extremity +1 pitting edema. left lower extremity feels more warm than right. some redness noted at the ankles - Neurological Exam Neurological exam: Present: alert. Absent: speech deficit - Psychiatric Psychiatric exam: Present: normal affect, normal mood Internal Medicine: Result - Labs CBC & Chem 7: 03/17/17 05:39 03/17/17 05:39 Labs: Short CBC 03/17/17 Range/Units 05:39 WBC 11.9 H (4.3-11.1) K/mcL Hgb 8.3 L (12.9-16.9) g/dL Hct 25.6 L (37.5-50.1) % Plt Count 307 (140-400) K/mcL Neutrophils # 10.0 H (1.6-8.9) K/mcL BMP 03/17/17 05:39 Sodium 135 L Potassium 3.6 Chloride 93 L Carbon Dioxide 36 H BUN 21 Creatinine 0.92 Glucose 93 Calcium 7.9 L Consult Discharge Plan - Plan Referrals: Twyla Sorenson MD [Non-Partnered Physician] - (Patient will possiblly go to an ECF and will follow up with PCP there) <Norris Reeder - Last Filed: 03/17/17 19:35> Date of Encounter: 03/17/17 - Assessment and plan (1) Acute respiratory failure with hypoxia Current Visit: Yes Status: Acute (2) Leg pain, left Current Visit: Yes Status: Acute (3) Fall Current Visit: Yes Status: Acute Qualifiers: Encounter type: subsequent encounter Qualified Code(s): W19.XXXD - Unspecified fall, subsequent encounter (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 (5) Anemia Current Visit: Yes Status: Acute Qualifiers: Anemia type: other cause Other causes of anemia: acute posthemorrhagic Qualified Code(s): D62 - Acute posthemorrhagic anemia (6) Afib Current Visit: Yes Status: Acute Qualifiers: Atrial fibrillation type: chronic Qualified Code(s): I48.2 - Chronic atrial fibrillation - Constitutional Vitals: Temp Pulse Resp BP Pulse Ox 98.6 F 79 20 113/53 96 03/17/17 19:14 03/17/17 19:14 03/17/17 19:14 03/17/17 19:14 03/17/17 19:14 Internal Medicine: Result - Labs CBC & Chem 7: 03/17/17 05:39 03/17/17 05:39 Labs: Short CBC 03/17/17 Range/Units 05:39 WBC 11.9 H (4.3-11.1) K/mcL Hgb 8.3 L (12.9-16.9) g/dL Hct 25.6 L (37.5-50.1) % Plt Count 307 (140-400) K/mcL Neutrophils # 10.0 H (1.6-8.9) K/mcL BMP 03/17/17 05:39 Sodium 135 L Potassium 3.6 Chloride 93 L Carbon Dioxide 36 H BUN 21 Creatinine 0.92 Glucose 93 Calcium 7.9 L - Impressions Impressions Ankle X-Ray 03/17/17 08:51 IMPRESSION: 1. Ossific densities are seen along the medial and lateral malleoli, which may represent age indeterminate injuries. 2. Otherwise, no convincing acute fracture of the left tibia/fibula. 3. Soft tissue swelling of the left ankle. D/ / Pavel Martin MD / Pavel Martin MD Interpreting Provider: Pavel Martin MD Knee X-Ray 03/17/17 08:58 IMPRESSION: 1. Osteopenia without convincing evidence of an acute fracture. 2. Degenerative changes of the left knee. 3. Trace joint effusion. D/ / Pavel Martin MD / Pavel Martin MD Interpreting Provider: Pavel Martin MD Tibia/Fibula X-Ray 03/17/17 08:58 IMPRESSION: 1. Ossific densities are seen along the medial and lateral malleoli, which may represent age indeterminate injuries. 2. Otherwise, no convincing acute fracture of the left tibia/fibula. 3. Soft tissue swelling of the left ankle. D/ / Pavel Martin MD / Pavel Martin MD Interpreting Provider: Pavel Martin MD - Attending Attestation I examined this patient and my medical decision-making was reviewed with the Resident Physician on 03/17/17. I agree with the documented findings, disposition and treatment plan as described except to the extent set forth below. Mr Esparza is currently admitted for hypoxia, GI bleed and L leg pain. He remains high risk due to continued hypoxia and L leg pain. Mr. Esparza continues to have severe L leg pain with movement. Ankle swollen and knee painful. Also has pain in groin. No fever or chills. Repeat xrays negative. Exam Alert. Uncomfortable with movement of L leg Mucus membranes dry Heart reg Lungs clear L ankle swollen. Knee tender with some erythema below knee. Very painful with movement. I/P 1. L leg pain 2. hypoxia 3. GI bleed Further diagnoses and plan as above.
--- NOTE | 2017-03-17 18:26 | Venous Imaging Report ---
LE Venous Duplex Patient Name:Wilner Esparza Order Number:[id number] Procedure Date:03/17/2017 Date:4Age:82 yrs Gender:Male Location:[facility] Room #: 2A12 [employer] Machine Feeder:David Cruz RDCS Referring MD:Brooke Reilly DO chief crew scheduler:None Reading MD:Andres Cooper MD , FACS Primary Indications:Swelling Secondary Indications: Risk Factors Yes/No None Impressions: Left lower extremity: normal superficial and deep exam. Right lower extremity: normal contralateral exam. Recommendations: After imaging the patient returned to their room. Critical findings reported to Mala by phone by David Cruz RDCS. Findings Venous Duplex Results: Right: Venous imaging of the lower extremity reveals full patency and normal vessel compressibility of the right common femoral. Doppler signals in the evaluated veins were normal. Left: Venous imaging of the lower extremity reveals full patency and normal vessel compressibility of the left distal iliac, left common femoral, left superficial femoral, left popliteal, left posterior tibial, left peroneal, left great saphenous and left lesser saphenous. Doppler signals in the evaluated veins were normal. Prior Study: No prior study available for comparison. Lower Extremity Venous Duplex Side Vein Compress Spontaneous Flow Augment Diameter (cm) Depth (cm) Left Distal Iliac Normal Yes Phasic Yes Left Common Femoral Normal Yes Phasic Yes Left Superficial Femoral Normal Yes Phasic Yes Left Popliteal Normal Yes Phasic Yes Left Posterior Tibial Normal Yes Phasic Yes Left Peroneal Normal Yes Phasic Yes Left Great Saphenous Normal Yes Phasic Yes Left Lesser Saphenous Normal Yes Phasic Yes Right Common Femoral Normal Yes Phasic Yes Updated by Andres Cooper MD, FACS on 03/17/2017 6:19:35 PM Andres Cooper MD electronically signed on 03/17/2017 6:19:48 PM with status of Final
[2017-03-17] MEDS: Acetaminophen 325 MG TABLET PO PRN (22:46)
[2017-03-18] MEDS: Ampicillin/Sulbactam 1,500 MG in 0.9 % Sodium Chloride Mini Bag 100 ML IVPB SCH ×5 (00:37→22:47)
[2017-03-18] MEDS: *HR* HYDROcodone/Acet 5/325 mg TABLET PO PRN ×2 (03:24→17:07)
[2017-03-18 05:36] LABS: Basophils % 0.3 %; Eosinophils # 0.2 K/mcL (0.0-0.6); Eosinophils % 1.5 %; Hemoglobin 8.1 g/dL (12.9-16.9); Lymphocytes # 0.9 K/mcL (0.6-4.6); Lymphocytes % 7.6 %; Mean Corpuscular HGB Conc 32.4 g/dL (31.6-35.5); Mean Corpuscular Hemoglobin 30.7 pg (28.0-33.3); Mean Corpuscular Volume 94.7 fL (83.0-100.0); Mean Platelet Volume 9.1 fL (9.4-12.4); Monocytes # 0.7 K/mcL (0.0-1.3); Monocytes % 6.1 %; Neutrophils # 9.3 K/mcL (1.6-8.9); Platelet Count 281 K/mcL (140-400); Red Blood Count 2.64 M/mcL (4.19-5.50); Red Cell Distribution Width 13.9 % (11.5-14.5); Segmented Neutrophils % 83.5 %
[2017-03-18 05:47] LABS: BUN/Creatinine Ratio 25 (6-26); Blood Urea Nitrogen 24 mg/dL (8-26); Calcium 8.2 mg/dL (8.6-10.8); Carbon Dioxide 37 mEq/L (19-29); Chloride 94 mEq/L (98-109); Glucose 102 mg/dL (70-99); Osmolality,Calculated 284 (280-300); Potassium 4.3 mEq/L (3.5-4.5); Sodium 135 mEq/L (136-145); eGFR For African Americans > 60 (> 60); eGFR For Non-African Americans > 60 (> 60)
[2017-03-18] MEDS: Sucralfate 1 GM TABLET PO SCH ×4 (08:04→22:47)
[2017-03-18] MEDS: Furosemide 40 MG TABLET PO SCH (08:04)
--- NOTE | 2017-03-18 08:27 | Internal Med Progress Note ---
<EctorHans - Last Filed: 03/18/17 09:57> Date of Encounter: 03/18/17 Time of Encounter: 08:26 - Assessment and plan (1) Leg pain, left Current Visit: Yes Status: Acute Assessment and plan: Tib/Fib x-rays and lower extremity CT negative for acute fracture, doppler negative for DVT He is currently on Unasyn for cellulitis as he has erythema and swelling in that area Will obtain DESIREE, ESR, CRP for inflammatory workup as patient is somewhat out of proportion to exam Given 1 dose of Solumedrol 125 mg to see if he has any response with pain/ erythema/swelling (2) Fall Current Visit: Yes Status: Acute Assessment and plan: Unclear etiology at this time, but likely mechanical PT/OT consulted and rn social work working on placement Tib/Fib x-rays and lower extremity CT negative for acute fracture Will workup metabolic causes with B12, folate, TSH Qualifiers: Encounter type: subsequent encounter Qualified Code(s): W19.XXXD - Unspecified fall, subsequent encounter (3) GI bleed Current Visit: Yes Status: Suspected Assessment and plan: EGD on 03/12/17 showed one nonbleeding duodenal ulcer with pigmented material, duodenitis with biopsy pendng. erythematous mucosa in gastric body, which was biopsied, and small hiatal hernia. Total of 2 units PRBCs transfused and Hb stable, continue to monitor Continue Omeprazole 40mg PO daily for 3 months per surgery recommendations Holding home Eliquis for now Qualifiers: GI bleed type/associated pathology: melena Qualified Code(s): K92.1 - Melena (4) Encephalopathy acute Current Visit: Yes Status: Acute Assessment and plan: Likely secondary to cellulitis in setting of underlying dementia Continue with nectar thick liquids per dietary recommendations (5) Afib Current Visit: Yes Status: Acute Assessment and plan: Pacemaker is in place and he is not on any rate control medications at home Continue to hold Eliquis given GIB Qualifiers: Atrial fibrillation type: chronic Qualified Code(s): I48.2 - Chronic atrial fibrillation (6) DVT prophylaxis Current Visit: Yes Status: Acute Assessment and plan: ECPDs in setting of GIB - Subjective Interval history: Pt seen and examined. He states he is doing the same as yesterday and is still experiencing pain in his left leg. He denies any fevers, chest pain, shortness of breath, nausea, vomiting, diarrhea or constipation. - Constitutional Vitals: Temp Pulse Resp BP Pulse Ox 97.5 F L 59 16 138/55 97 03/18/17 07:37 03/18/17 07:37 03/18/17 07:37 03/18/17 07:37 03/18/17 07:37 General appearance: Present: pleasant, no acute distress, answers questions appropriately - Head Head exam: Present: atraumatic, normocephalic - Eye Eye exam: Present: PERRL, conjuntiva pink, sclera anicteric - Neck Neck exam general surgery: Present: supple, trachea midline. Absent: lymphadenopathy - Respiratory Respiratory exam: Present: CTAB. Absent: accessory muscle use, rales, rhonchi, wheezes - Cardiovascular Cardiovascular exam: Present: RRR, +S1, +S2. Absent: diastolic murmur, gallop, rubs, systolic murmur - GI/Abdominal GI/Abdominal exam: Present: normal bowel sounds, soft, no peritoneal signs. Absent: distended, tenderness - Extremities Exam Extremities exam: Present: pedal edema (2+ on left), warm, radial pulses palpable and symetrical. Absent: calf tenderness, cyanotic - Neurological Exam Neurological exam: Present: alert, no focal deficits. Absent: facial droop, speech deficit - Skin Skin exam: Present: erythema (in left ankle/leg) Internal Medicine: Result - Labs CBC & Chem 7: 03/18/17 05:25 03/18/17 05:25 Labs: Short CBC 03/18/17 Range/Units 05:25 WBC 11.2 H (4.3-11.1) K/mcL Hgb 8.1 L (12.9-16.9) g/dL Hct 25.0 L (37.5-50.1) % Plt Count 281 (140-400) K/mcL Neutrophils # 9.3 H (1.6-8.9) K/mcL BMP 03/18/17 05:25 Sodium 135 L Potassium 4.3 Chloride 94 L Carbon Dioxide 37 H BUN 24 Creatinine 0.97 Glucose 102 H Calcium 8.2 L - Impressions Impressions Lower Extremity CT 03/12/17 10:04 IMPRESSION: 1. No acute osseous abnormality of the left lower extremity. 2. Nonspecific soft tissue swelling about the left leg. 3. No convincing CT scan evidence of abscess or osteomyelitis. D/ / Hema Feliz MD / Hema Feliz MD Interpreting Provider: Hema Feliz MD Ankle X-Ray 03/17/17 08:51 IMPRESSION: 1. Ossific densities are seen along the medial and lateral malleoli, which may represent age indeterminate injuries. 2. Otherwise, no convincing acute fracture of the left tibia/fibula. 3. Soft tissue swelling of the left ankle. D/ / Pavel Martin MD / Pavel Martin MD Interpreting Provider: Pavel Martin MD Knee X-Ray 03/17/17 08:58 IMPRESSION: 1. Osteopenia without convincing evidence of an acute fracture. 2. Degenerative changes of the left knee. 3. Trace joint effusion. D/ / Pavel Martin MD / Pavel Martin MD Interpreting Provider: Pavel Martin MD Tibia/Fibula X-Ray 03/17/17 08:58 IMPRESSION: 1. Ossific densities are seen along the medial and lateral malleoli, which may represent age indeterminate injuries. 2. Otherwise, no convincing acute fracture of the left tibia/fibula. 3. Soft tissue swelling of the left ankle. D/ / Pavel Martin MD / Pavel Martin MD Interpreting Provider: Pavel Martin MD Lower Extremity CT 03/17/17 17:00 IMPRESSION: 1. Soft tissue swelling within the lower extremity, especially at the level of the ankle, but without a definite fluid collection, and without convincing CT evidence of osteomyelitis. 2. To a lesser extent, there is also soft tissue swelling at the hip, but again there is no fluid collection. 3. Very large amount of stool within the rectum with perirectal fat stranding and possible mural thickening. This is compatible with rectal impaction with possible stercoral colitis. 4. Suggestion of scrotal skin thickening, with a complex right hydrocele. Correlate clinically. D/ / Milton Joe MD / Milton Joe MD Interpreting Provider: Milton Joe MD Consult Discharge Plan - Plan Referrals: Twyla Sorenson MD [Non-Partnered Physician] - (Patient will possiblly go to an ECF and will follow up with PCP there) <Norris Reeder - Last Filed: 03/18/17 17:03> Date of Encounter: 03/18/17 - Assessment and plan (1) Acute respiratory failure with hypoxia Current Visit: Yes Status: Acute (2) Leg pain, left Current Visit: Yes Status: Acute (3) Fall Current Visit: Yes Status: Acute Qualifiers: Encounter type: subsequent encounter Qualified Code(s): W19.XXXD - Unspecified fall, subsequent encounter (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 (5) Anemia Current Visit: Yes Status: Acute Qualifiers: Anemia type: other cause Other causes of anemia: acute posthemorrhagic Qualified Code(s): D62 - Acute posthemorrhagic anemia (6) Afib Current Visit: Yes Status: Acute Qualifiers: Atrial fibrillation type: chronic Qualified Code(s): I48.2 - Chronic atrial fibrillation - Constitutional Vitals: Temp Pulse Resp BP Pulse Ox 98 F 68 17 125/52 96 03/18/17 11:15 03/18/17 11:15 03/18/17 11:15 03/18/17 11:15 03/18/17 11:15 Internal Medicine: Result - Labs CBC & Chem 7: 03/18/17 05:25 03/18/17 05:25 Labs: Short CBC 03/18/17 Range/Units 05:25 WBC 11.2 H (4.3-11.1) K/mcL Hgb 8.1 L (12.9-16.9) g/dL Hct 25.0 L (37.5-50.1) % Plt Count 281 (140-400) K/mcL Neutrophils # 9.3 H (1.6-8.9) K/mcL BMP 03/18/17 05:25 Sodium 135 L Potassium 4.3 Chloride 94 L Carbon Dioxide 37 H BUN 24 Creatinine 0.97 Glucose 102 H Calcium 8.2 L - Impressions Impressions Lower Extremity CT 03/12/17 10:04 IMPRESSION: 1. No acute osseous abnormality of the left lower extremity. 2. Nonspecific soft tissue swelling about the left leg. 3. No convincing CT scan evidence of abscess or osteomyelitis. D/ / Hema Feliz MD / Hema Feliz MD Interpreting Provider: Hema Feliz MD Lower Extremity CT 03/17/17 17:00 IMPRESSION: 1. Soft tissue swelling within the lower extremity, especially at the level of the ankle, but without a definite fluid collection, and without convincing CT evidence of osteomyelitis. 2. To a lesser extent, there is also soft tissue swelling at the hip, but again there is no fluid collection. 3. Very large amount of stool within the rectum with perirectal fat stranding and possible mural thickening. This is compatible with rectal impaction with possible stercoral colitis. 4. Suggestion of scrotal skin thickening, with a complex right hydrocele. Correlate clinically. D/ / Milton Joe MD / Milton Joe MD Interpreting Provider: Milton Joe MD - Attending Attestation I examined this patient and my medical decision-making was reviewed with the Resident Physician on 03/18/17. I agree with the documented findings, disposition and treatment plan as described except to the extent set forth below. Mr. Esparza is currently admitted for fall and confusion. He continues to have L leg pain and all imaging has been negative for fracture. He remains moderate to high risk due to potential for worsening neuro status and need for pain control. Mr Esparza continues to have pain in L leg. Unable to stand on leg. No fever or chills. Continues to have intermittent confusion episodes. Exam Alert. Mod distress due to pain. Mucus membranes moist Heart reg No wheeze Abd soft L leg - very tender along fibula - especially fibular head. Swelling around fibular head and distal fibula as well. I/P 1. L leg pain - will order bone scan to rule out occult fracture (i.e. stress fracture). One dose Solumedrol given to see if inflammatory process. 2. Encephalopathy Working on d/c planning to SNF. Further diagnoses and plan as above.
[2017-03-18] MEDS ORDERED: methylPREDNISolone 125 MG/2 ML VIAL IVP ONE (08:34)
[2017-03-18] MEDS ORDERED: Sennosides/Docusate Sodium TABLET PO PRN (11:18)
[2017-03-19 05:07] LABS: Basophils % 0.1 %; Hematocrit 24.4 % (37.5-50.1); Hemoglobin 7.8 g/dL (12.9-16.9); Immature Granulocytes % 0.9 % (0-4); Lymphocytes # 0.7 K/mcL (0.6-4.6); Lymphocytes % 4.5 %; Mean Corpuscular Hemoglobin 30.1 pg (28.0-33.3); Mean Corpuscular Volume 94.2 fL (83.0-100.0); Mean Platelet Volume 9.6 fL (9.4-12.4); Monocytes # 0.4 K/mcL (0.0-1.3); Monocytes % 2.5 %; Neutrophils # 14.8 K/mcL (1.6-8.9); Platelet Count 318 K/mcL (140-400); Red Blood Count 2.59 M/mcL (4.19-5.50); Red Cell Distribution Width 13.8 % (11.5-14.5)
[2017-03-19 05:24] LABS: BUN/Creatinine Ratio 26 (6-26); Blood Urea Nitrogen 31 mg/dL (8-26); Carbon Dioxide 34 mEq/L (19-29); Chloride 95 mEq/L (98-109); Potassium 4.4 mEq/L (3.5-4.5); Sodium 135 mEq/L (136-145)
[2017-03-19 05:25] LABS: % Iron Saturation 10 % (20-55); Calcium 8.3 mg/dL (8.6-10.8); Glucose 115 mg/dL (70-99); Iron 19 mcg/dL (65-175); Osmolality,Calculated 287 (280-300); Transferrin 132 mg/dL (174-364); eGFR For African Americans > 60 (> 60); eGFR For Non-African Americans 58 (> 60)
[2017-03-19] MEDS: Ampicillin/Sulbactam 1,500 MG in 0.9 % Sodium Chloride Mini Bag 100 ML IVPB SCH ×4 (05:37→23:22)
[2017-03-19 05:46] LABS: Ferritin 392 ng/ml (22-275)
[2017-03-19 05:59] LABS: Folate 2.8 ng/mL (7.0-31.4)
[2017-03-19] MEDS: Furosemide 40 MG TABLET PO SCH (09:28)
[2017-03-19] MEDS: *HR* HYDROcodone/Acet 5/325 mg TABLET PO PRN (09:28)
[2017-03-19] MEDS: Sucralfate 1 GM TABLET PO SCH ×4 (09:28→20:52)
--- NOTE | 2017-03-19 09:45 | Internal Med Progress Note ---
<Hans Barney - Last Filed: 03/19/17 10:24> Date of Encounter: 03/19/17 Time of Encounter: 09:41 - Assessment and plan (1) Leg pain, left Current Visit: Yes Status: Acute Assessment and plan: Tib/Fib x-rays and lower extremity CT negative for acute fracture, doppler negative for DVT Awaiting bone scan to rule out possibility of stress fracture He is currently on Unasyn day 7 and already had 7 days of Vancomycin for cellulitis as he has erythema and swelling in that area ESR and CRP were elevated and he did receive 1 dose of Solumedrol 125 mg, but it had little effect Awaiting DESIREE and CK; possible rheumatology consult tomorrow (2) Fall Current Visit: Yes Status: Acute Assessment and plan: Unclear etiology at this time, but likely mechanical PT/OT consulted and social insurance administrator working on placement Tib/Fib x-rays and lower extremity CT negative for acute fracture Metabolic workup did show folate deficiency and replacement has been started Qualifiers: Encounter type: subsequent encounter Qualified Code(s): W19.XXXD - Unspecified fall, subsequent encounter (3) GI bleed Current Visit: Yes Status: Suspected Assessment and plan: EGD on 03/12/17 showed one nonbleeding duodenal ulcer with pigmented material, duodenitis with biopsy pendng. erythematous mucosa in gastric body, which was biopsied, and small hiatal hernia. Total of 2 units PRBCs transfused and Hb stable, continue to monitor Continue Carafate for 1 month and Omeprazole 40mg PO daily for 3 months per surgery recommendations Holding home Eliquis for now Qualifiers: GI bleed type/associated pathology: melena Qualified Code(s): K92.1 - Melena (4) Encephalopathy acute Current Visit: Yes Status: Acute Assessment and plan: Likely secondary to cellulitis in setting of underlying dementia Continue with nectar thick liquids per dietary recommendations (5) Afib Current Visit: Yes Status: Chronic Assessment and plan: Currently in sinus rhythm and is non-tachycardic Pacemaker is in place and he is not on any rate control medications at home Continue to hold Eliquis given GIB Qualifiers: Atrial fibrillation type: chronic Qualified Code(s): I48.2 - Chronic atrial fibrillation (6) DVT prophylaxis Current Visit: Yes Status: Acute Assessment and plan: ECPDs in setting of GIB - Subjective Interval history: Pt seen and examined. He states his leg pain is about the same as yesterday and is worse with movement or palpation, worst near his medial ankle. He denies any chest pain or shortness of breath currently, but does have wheezing remains on oxygen now - which he does not use at home. He did have a bowel movement yesterday but doesn't know if it was bloody or not. - Constitutional Vitals: Temp Pulse Resp BP Pulse Ox 98.0 F 67 16 147/56 99 03/19/17 07:35 03/19/17 07:35 03/19/17 07:35 03/19/17 07:35 03/19/17 07:35 General appearance: Present: cooperative, pleasant, no acute distress, answers questions appropriately - Head Head exam: Present: atraumatic, normocephalic - Eye Eye exam: Present: PERRL, conjuntiva pink, sclera anicteric - Neck Neck exam general surgery: Present: supple, trachea midline. Absent: lymphadenopathy - Respiratory Respiratory exam: Present: wheezes. Absent: accessory muscle use, rales, rhonchi - Cardiovascular Cardiovascular exam: Present: RRR, +S1, +S2. Absent: diastolic murmur, gallop, rubs, systolic murmur - GI/Abdominal GI/Abdominal exam: Present: normal bowel sounds, soft, no peritoneal signs. Absent: distended, tenderness - Extremities Exam Extremities exam: Present: pedal edema (only on left side), tenderness (left ankle/leg), warm, radial pulses palpable and symetrical. Absent: calf tenderness, cyanotic - Neurological Exam Neurological exam: Present: alert, no focal deficits. Absent: facial droop, speech deficit - Skin Skin exam: Present: erythema (left leg/ankle) Internal Medicine: Result - Labs CBC & Chem 7: 03/19/17 04:52 03/19/17 04:52 Labs: Short CBC 03/19/17 Range/Units 04:52 WBC 16.1 H (4.3-11.1) K/mcL Hgb 7.8 L (12.9-16.9) g/dL Hct 24.4 L (37.5-50.1) % Plt Count 318 (140-400) K/mcL Neutrophils # 14.8 H (1.6-8.9) K/mcL BMP 03/19/17 04:52 Sodium 135 L Potassium 4.4 Chloride 95 L Carbon Dioxide 34 H BUN 31 H Creatinine 1.20 Glucose 115 H Calcium 8.3 L Consult Discharge Plan - Plan Referrals: Twyla Sorenson MD [Non-Partnered Physician] - (Patient will possiblly go to an ECF and will follow up with PCP there) <Norris Reeder - Last Filed: 03/19/17 17:46> Date of Encounter: 03/19/17 - Assessment and plan (1) Folate deficiency Current Visit: Yes Status: Chronic Assessment and plan: Replete folate (2) Leg pain, left Current Visit: Yes Status: Acute (3) Acute respiratory failure with hypoxia Current Visit: Yes Status: Acute (4) Fall Current Visit: Yes Status: Acute Qualifiers: Encounter type: subsequent encounter Qualified Code(s): W19.XXXD - Unspecified fall, subsequent encounter (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 (6) Anemia Current Visit: Yes Status: Acute Qualifiers: Anemia type: other cause Other causes of anemia: acute posthemorrhagic Qualified Code(s): D62 - Acute posthemorrhagic anemia (7) Afib Current Visit: Yes Status: Chronic Qualifiers: Atrial fibrillation type: chronic Qualified Code(s): I48.2 - Chronic atrial fibrillation - Constitutional Vitals: Temp Pulse Resp BP Pulse Ox 98.3 F 76 16 152/58 96 03/19/17 15:38 03/19/17 15:38 03/19/17 15:38 03/19/17 15:38 03/19/17 15:38 Internal Medicine: Result - Labs CBC & Chem 7: 03/19/17 04:52 03/19/17 04:52 Labs: Short CBC 03/19/17 Range/Units 04:52 WBC 16.1 H (4.3-11.1) K/mcL Hgb 7.8 L (12.9-16.9) g/dL Hct 24.4 L (37.5-50.1) % Plt Count 318 (140-400) K/mcL Neutrophils # 14.8 H (1.6-8.9) K/mcL BMP 03/19/17 04:52 Sodium 135 L Potassium 4.4 Chloride 95 L Carbon Dioxide 34 H BUN 31 H Creatinine 1.20 Glucose 115 H Calcium 8.3 L - Impressions Impressions Bone Scan Nuclear Medicine 03/19/17 08:09 IMPRESSION: 1. Abnormal three phase bone scan with increased blood flow to the soft tissues concerning for cellulitis. 2. Abnormal trace accumulation all three phases involving the tibiotalar joint. I see no posttraumatic etiology on the recent CT imaging and findings may relate to inflammatory or septic arthritis. D/ / 03/19/2017 11:47:06 Ras Domingo MD / meredith Interpreting Provider: Ras Domingo MD - Attending Attestation I examined this patient and my medical decision-making was reviewed with the Resident Physician on 03/19/17. I agree with the documented findings, disposition and treatment plan as described except to the extent set forth below. Mr. Esparza is currently admitted for acute GI bleed and falls. He continues to have significant LLE pain. He remains moderate to high risk due to potential for worsening mental status and need for pain control and work up. Mr Esparza continues to have L leg pain. He is still intermittently confused. No fever or chills. Imaging remains negative at this time. Bone scan today. Exam Alert. Mod distress when moving leg Mucus membranes moist Heart reg No wheeze Abd soft LLE continues with slight erythema and warmth. Pain with minimal movement. Pulses palpable. I/P 1. LLE - bone scan shows uptake in ankle and knee. ESR elevated. Rheum consult tomorrow. Steroids. 2. Encephalopathy Further diagnoses and plan as above.
[2017-03-19] MEDS ORDERED: predniSONE 20 MG TABLET PO ONE (12:29)
[2017-03-19] MEDS: Folic Acid 1 MG TABLET PO SCH (12:45)
[2017-03-20 01:59] LABS: Bilirubin,Urine Negative (Negative); Blood,Urine Large (Negative); Clarity,Urine Cloudy (Clear); Color,Urine Yellow (Yellow); Glucose,Urine (UA) Normal (Normal); Ketones,Urine Negative (Negative); Leukocyte Esterase,Urine Negative (Negative); Nitrite,Urine Negative (Negative); PH,Urine 7.5 pH Units (5.0-8.0); Protein,Urine Trace mg/dL (Neg-Trace); Specific Gravity,Urine 1.013 (1.010-1.025); Urobilinogen,Urine Normal (Normal)
[2017-03-20 02:00] LABS: Bacteria,Urine None Seen per hpf (None-Few); Hyaline Casts,Urine None Seen per lpf (None-Few); RBC,Urine TNTC per hpf (0-3); Squamous Epithelial Cell,Urine Moderate per lpf (None-Few)
[2017-03-20] MEDS: Ampicillin/Sulbactam 1,500 MG in 0.9 % Sodium Chloride Mini Bag 100 ML IVPB SCH (05:05)
[2017-03-20 05:32] LABS: Basophils % 0.1 %; Hematocrit 28.1 % (37.5-50.1); Immature Granulocytes % 0.7 % (0-4); Lymphocytes # 0.7 K/mcL (0.6-4.6); Lymphocytes % 5.1 %; Mean Corpuscular Hemoglobin 29.8 pg (28.0-33.3); Mean Platelet Volume 8.9 fL (9.4-12.4); Monocytes # 0.3 K/mcL (0.0-1.3); Monocytes % 1.8 %; Neutrophils # 13.1 K/mcL (1.6-8.9); Platelet Count 393 K/mcL (140-400); Red Blood Count 3.02 M/mcL (4.19-5.50); Red Cell Distribution Width 13.7 % (11.5-14.5); Segmented Neutrophils % 92.3 %
[2017-03-20 05:50] LABS: BUN/Creatinine Ratio 30 (6-26); Blood Urea Nitrogen 35 mg/dL (8-26); Calcium 8.7 mg/dL (8.6-10.8); Carbon Dioxide 39 mEq/L (19-29); Chloride 92 mEq/L (98-109); Creatine Kinase 38 Units/L (30-200); Glucose 125 mg/dL (70-99); Osmolality,Calculated 293 (280-300); Potassium 4.6 mEq/L (3.5-4.5); Sodium 137 mEq/L (136-145); eGFR For African Americans > 60 (> 60); eGFR For Non-African Americans > 60 (> 60)
[2017-03-20 08:57] LABS: Uric Acid 4.1 mg/dL (3.5-7.2)
[2017-03-20] MEDS: Furosemide 40 MG TABLET PO SCH (09:02)
[2017-03-20] MEDS: Folic Acid 1 MG TABLET PO SCH (09:02)
[2017-03-20] MEDS: Sucralfate 1 GM TABLET PO SCH ×4 (09:02→20:43)
--- NOTE | 2017-03-20 09:09 | Rheumatology Consult Note ---
<Cal Prado - Last Filed: 03/20/17 15:36> Date of Encounter: 03/20/17 Time of Encounter: 09:08 Rheumatology Assess and Plan (1) Leg pain, left Current Visit: Yes Status: Acute Patient has had right knee and right ankle swelling in the setting of Cellulitis. He denies any hx of RA, OA, gout or other autoimmune disorders. He has been on antibiotics since admission. Mr. Esparza feels that the erythema and edema are much improved and he has increased range of motion with reduced tenderness. Left knee x-ray demonstrates chondrocalcinosis of the medial aspect of the joint space. Bone scan demonstrates 1. Abnormal three phase bone scan with increased blood flow to the soft tissues concerning for cellulites. 2. Abnormal trace accumulation all three phases involving the tibiotalar joint. No posttraumatic etiology on the recent CT imaging and findings may relate to inflammatory or septic arthritis. Labs: ESR 86, CRP 106, Uric Acid 4.1, DESRIEE ordered with results pending. The CRP, ESR may be elevated as the patient is currently being treated for Cellulitis. These markers can be elevated in the setting of acute infection or inflammation. The uric acid is within normal levels and he has no history of gout, which leads to a low probability that it is gouty arthritis. He does have findings of chondrocalcinosis on his knee imaging and fluid shifts may contribute to a flare in pseudogout. There is also a possibility he may have undiagnosed RA and we will order a CCP and rheumatoid factor for further evaluation. With his recent GI bleed during this admission I would avoid NSAID's and while on Steroids he should continue with GI prophylaxis. Plan: 1. CCP 2. Rhumatoid factor 3. repeat Uric acid in 5 days. (2) Tenosynovitis of foot Current Visit: Yes Status: Acute Mr. Esparza has tenderness to minimal flexion and extension of the left Hallicus and palpation posterior to the medial malleous of the left ankle. Suspect this is secondary to recent cellulitis. - Continue conservative care for symptom management. (3) Chondrocalcinosis Current Visit: Yes Status: Acute Minimal chondrocalcinosis within the medial compartment of the Left knee with trace joint effusion. This may represent calcium pyrophosphate dihydrate (CPP) crystal deposition but also may be a benign finding for the patients current concern of left knee and ankle pain Plan: - Continue to monitor as the findings are minimal and likely chronic. (4) Anemia Current Visit: Yes Status: Acute EGD on 03/12/17 showed one nonbleeding duodenal ulcer with pigmented material, duodenitis with biopsy pendng. erythematous mucosa in gastric body, which was biopsied, and small hiatal hernia. H. Pylori culture negative. - HGB stable - Continued management by primary team Qualifiers: Anemia type: other cause Other causes of anemia: acute posthemorrhagic Qualified Code(s): D62 - Acute posthemorrhagic anemia (5) Cellulitis Current Visit: Yes Status: Acute Improving. - Erythema and edema resolving - currently on Unasyn day 8 and already had 7 days of Vancomycin for cellulitis - WBC elevated at 14.6 yet improved from 19.2 Qualifiers: Site of cellulitis: extremity Site of cellulitis of extremity: lower extremity Laterality: left Qualified Code(s): L03.116 - Cellulitis of left lower limb (6) Encephalopathy acute Current Visit: Yes Status: Resolved Resolved. (7) FRANCESCO (acute kidney injury) Current Visit: Yes Status: Resolved Patient was transferred from outside hospital with Cr 1.32 and decreased GFR, elevated osmolality in the setting of Rhabdomyalysis, dehydration and cellulitis. - resolved after rehydration and treatment for underlining medical problems. (8) Elevated troponin Current Visit: Yes Status: Resolved Likely secondary to Rhabdomyalysis. He does have a history of CAD, CABG and current pacemaker. Troponin levels demonstrated improvement with treatment of other medical conditions. Suspect secondary to supply demand miss match in the setting of acute illness. (9) Rhabdomyolysis Current Visit: Yes Status: Resolved 82 yo male found down at his home for unknown period of time associated with AMS , Left LE cellulitis. He was found to have a CK >2000, elevated Troponin level. He was treated with volume resuscitation with significant improvement in his CK within 24 hours. - Resolved. - Continued management by primary team. Qualifiers: Rhabdomyolysis type: non-traumatic Qualified Code(s): M62.82 - Rhabdomyolysis (10) CAD (coronary artery disease) Current Visit: Yes Status: Acute Known hx of CAD. Continue to optimize cardiac coverage. Qualifiers: Qualified Code(s): I25.10 - Atherosclerotic heart disease of [place] coronary artery without angina pectoris (11) HTN (hypertension) Current Visit: Yes Status: Acute Known hx of HTN with current blood pressure elevated. Renal function improved from initial presentation and would suggest restarting patients Lisinopril for BP control and CAD. Qualifiers: Qualified Code(s): I10 - Essential (primary) hypertension (12) Afib Current Visit: Yes Status: Chronic Known hx of A-fib. Currently in Sinus Rhythm. Anticoagulation held secondary to bleeding duodenal ulcers and anemia. Qualifiers: Atrial fibrillation type: chronic Qualified Code(s): I48.2 - Chronic atrial fibrillation Rheumatology HPI Consult date: 03/20/17 Requesting physician: Brooke Reilly Consult reason: concern for post traumatic inflammatory process History of present illness: Mr. Esparza is a 82 year old male transferred to [facility] on 03/09/2017 from [facility] for further management. Patient interview with patient and his son at bedside. Mr. Esparza says that he was laying on the floor of his home and was found by meals on wheels on the day of admission. He says that he usually ambulates around his house without any assisted devices but does use a walker when going outside or to the store. He does not remember how he ended up on the floor or how long he was on the floor. His son could not provide comment on the situation. He says he felt like he was in his normal state of health prior to the current events. He had recently been worked up for a suspected blood loss anemia with a colonocopy, lab work and started on Iron pills. He said further evaluation was stopped after his hemaglobin remained stable. He did notice black stools prior but did not think much of it. He did not know his left lower extremity was red and his son says he always has cloths on when they see him and no family members were aware of the cellulites. He is happy with the improvement in erythema and swelling of his left lower extremity. He says that his leg from his left ankle to his left knee was red and swollen. He had pain in the knee and ankle with both passive and active movements. He has pain with standing, pivoting to transfer to the chair. His pain is improved with rest. He denies any pain in his joints prior to coming to the hospital. He feels that the pain in his left knee is fully resolved but continues to have pain in his left ankle but it is much improved. He denies any history of joint swelling, stiffness in any of his joints both upper and lower extremities. He has never been told he has RA or OA. He denies any hx of venous or arterial thrombus, Raynoud's characteristics, known autoimmune disease, gout, kidney stones. He currently denies any fevers, chills , diaphoresis, N/V/D/C, abdominal pain, Chest pain, pressure or palpitations. He says that his only current compliant is pain and improving swelling in his left ankle. Past Med Surg Social Fam HX - Past Medical History Medical history: coronary artery disease, dementia, hyperlipidemia, hypertension , myocardial infarction (1998) Psychiatric history: depression - Past Surgical History Surgical History: coronary bypass (CABG), pacemaker - Social History Smoking Status: Current some day smoker Alcohol use: unknown Drug use: unknown Medications and Allergies Apixaban [Eliquis] 5 mg PO BID 03/10/17 [History] Donepezil [Aricept] 5 mg PO HS 03/10/17 [History] Ferrous Sulfate [Iron] 325 mg PO DAILY 03/10/17 [History] Lisinopril [Zestril] 40 mg PO DAILY 03/10/17 [History] Multivitamin [One Daily Essential] 1 each PO DAILY 03/10/17 [History] [place]-3 Fatty Acids [Fish Oil] 600 mg PO DAILY 03/10/17 [History] Sertraline [Zoloft] 25 mg PO DAILY 03/10/17 [History] amLODIPine [Norvasc] 10 mg PO DAILY 03/10/17 [History] Allergies No Known Allergies Allergy (Verified 03/10/17 13:14) All Systems Review: A 10-system review of systems was performed and is negative for pertinent findings except as documented above in the HPI. Review of Systems: currently denies any fevers, chills, diaphoresis, N/V/D/C, abdominal pain, Chest pain, pressure or palpitations. blood in his urine or burning with urination. He says that his only current compliant is pain and improving swelling in his left ankle. Rheumatology Exam Vital Signs, Last 4 Hours Temp Pulse Resp BP Pulse Ox 03/20/17 07:13 97.4 F L 60 14 151/62 97 Exam: General:Very thin white male, AOX3, alert, interactive and in no acute distress HEENT: NC/AT, Pupils are equal and reactive, no icterus, sclera is white without injection, Neck supple, no thyromegally appreciated, no palpabable lymphadenopathy, trachea midline, oral mucous is moist. Chest: symmetric bilaterally correlating with respiratory effort which is non- labored. pacemaker visible in left chest wall with scars from previous pacemaker and CABG. Respiratory: CTABL Cardiac: NSR with regular rate, with grade 3/6 systolic ejection murmur. radial pulses 2+ bilaterally, low grade carotid bruit in left carotid. Abdominal: sucken abdomen, nontender to palpation without mass or organomegally appreciated on examination. +BS. Extremities: symmetric without signs of deformity or missing digits. Left ankle demonstrates edema lateral> medial portion, tenderness to minimal flexion or extension of the ankle and left hallucis and light palpation of the medial ankle posterior to the medial malleolus. No pain with palpation of Achilles tendons b/l. His left knee demonstrates some mild edema with blotting of the patella compared to the right knee. He is able to flex and extend his left knee and hip joints without pain. He maintains full flexion and extension of the right LE joints. He maintains sensation throughout both upper and lower extremities. There are no signs of edema, or nodules on the MCP, PIP and DIP joints. Both Olecronon bursa's without edema or nodulation. Skin: No erythema appreciated in upper or lower extremities. Rheumatology Results 03/20/17 05:22 03/20/17 05:22 All other labs normal. Consult Discharge Plan - Plan Referrals: Twyla Sorenson MD [Non-Partnered Physician] - (Patient will possiblly go to an ECF and will follow up with PCP there) <Samuel Thompson - Last Filed: 03/20/17 17:14> Date of Encounter: 03/20/17 Rheumatology HPI History of present illness: Mr. Esparza is a 82 year old male All Systems Review: A 10-system review of systems was performed and is negative for pertinent findings except as documented above in the HPI. Rheumatology Results 03/20/17 05:22 03/20/17 05:22 Immunology Rheumatoid Factor < 15 IU/mL (0-29) 03/20/17 16:03 All other labs normal. - Attending Attestation I examined this patient and my medical decision making was reviewed with the resident physician. I agree with the documented findings, disposition and treatment as described with these exceptions. Wilner Esparza is an 82-year-old male with PMH of HTN, HLD, CAD, A-fib s/p pacer who presents to [facility] with confusion, fall and treated for cellulitis. Initial CK high in setting of fall that corrected shortly. During course of hospitalization, had arthritis in left knee and ankle. He had imaging on bone scan showing tibiotalar effusion. He has been covered with antibiotics for skin infection. - He has not clinical history of gout per the patient. - ESR/CRP elevated - CK initially 2,625 but corrected quicikly - XR L knee - mild chondrocondrocalcinosis and degenerative changes - Bone scan with tibiotalar joint activity - Exam - No effusions in bilateral knee. Left ankle with some bogginess but no obvious effusion; I was able to take his ankle through full ROM and he had no pain. - At this time, I do not see that there is enough fluid for an arthrocentesis. He clinically seems to be improving and his ankle joint is without pain on active and passive ROM. He has improved with both antibiotics and corticosteroids. I agree with medicine covering for infectious sources. Rheumatologic considerations could be reactive arthritis from infections and crystal arthritis. Will add CCP/RF though less likely a presentation of RA. Can cover for inflammatory arthritis with prednisone 20 mg po daily x 5 days; and I would defer antibiotic management to medicine team. Consider checking uric acid as outpatient which would be helpful if he had another episode of arthritis in the future. I discussed the case with Dr. Reeder, medicine attending.
--- NOTE | 2017-03-20 10:45 | Internal Med Progress Note ---
<WilberBrooke stoll - Last Filed: 03/20/17 16:02> Date of Encounter: 03/20/17 Time of Encounter: 10:42 - Assessment and plan (1) Leg pain, left Current Visit: Yes Status: Acute Assessment and plan: Tib/Fib x-rays and lower extremity CT negative for acute fracture, doppler negative for DVT Bone scan showed increased blood flow to soft tissues, abnormal trace accumulation involving tibiotalar joint, concerning for inflammatory vs. septic arthritis. He completed 7 days of unasyn and 7 days vancomycin for cellulitis and aspiration pneumonia. ESR and CRP were elevated and he did receive 1 dose of Solumedrol 125 mg, leg pain improved today. uric acid normal. appreciate rheumatology recs. ESR 86 Plan: Pending CCP, RF pending. repeat uric acid in 5 days. patient received one dose solumedrol. continue predinisone 20mg daily for 5 days. (2) Fall Current Visit: Yes Status: Acute Assessment and plan: Unclear etiology at this time, but likely mechanical PT/OT consulted and neonatal social worker working on placement to [facility]-likely discharge tomorrow. Tib/Fib x-rays and lower extremity CT negative for acute fracture Metabolic workup did show folate deficiency and replacement has been started Qualifiers: Encounter type: subsequent encounter Qualified Code(s): W19.XXXD - Unspecified fall, subsequent encounter (3) GI bleed Current Visit: Yes Status: Suspected Assessment and plan: EGD on 03/12/17 showed one nonbleeding duodenal ulcer with pigmented material, duodenitis with biopsy pendng. erythematous mucosa in gastric body, which was biopsied, and small hiatal hernia. Total of 2 units PRBCs transfused and Hb stable, continue to monitor Continue Carafate for 1 month and Omeprazole 40mg PO daily for 3 months per surgery recommendations Holding home Eliquis Qualifiers: GI bleed type/associated pathology: melena Qualified Code(s): K92.1 - Melena (4) Afib Current Visit: Yes Status: Chronic Assessment and plan: Pacemaker is in place and he is not on any rate control medications at home Continue to hold Eliquis given GIB Qualifiers: Atrial fibrillation type: chronic Qualified Code(s): I48.2 - Chronic atrial fibrillation (5) Acute respiratory failure with hypoxia Current Visit: Yes Status: Acute Assessment and plan: patient requiring nasal canula, did not require oxygen at home. CXR showed mild to moderate CHF with bibasilar airspace disease, atalectasis vs. edema, possible underlying pneumonia or aspiration. concern for aspiration in setting of altered mental status Plan: patient completed unasyn- 7 days continue lasix to 20mg PO daily. (6) Encephalopathy acute Current Visit: Yes Status: Resolved Assessment and plan: Likely secondary to cellulitis in setting of underlying dementia Continue with nectar thick liquids per dietary recommendations (7) Cellulitis Current Visit: Yes Status: Acute Assessment and plan: On admission, lactate of 2.04, heart rate of 112, meeting criteria for sepsis secondary to cellulitis CT of left lower extremity showed no osseous abnormality, nonspecific soft tissue swelling, no evidence of osteomyelitis. Plan: completed 7 days of vancomycin Qualifiers: Site of cellulitis: extremity Site of cellulitis of extremity: lower extremity Laterality: left Qualified Code(s): L03.116 - Cellulitis of left lower limb (8) Rhabdomyolysis Current Visit: Yes Status: Resolved Assessment and plan: resolved. on admission, CK was 2625, in 400s on last draw. repeat CK 38 Qualifiers: Rhabdomyolysis type: non-traumatic Qualified Code(s): M62.82 - Rhabdomyolysis (9) Elevated troponin Current Visit: Yes Status: Resolved Assessment and plan: peak troponin .17, trended down. etiology likely secondary to demand ischemia in setting of GI bleed and anemia. echo showed LVEF 55-60%, valvular function not evaluated in limited study. patient refused to lay down for exam. (10) FRANCESCO (acute kidney injury) Current Visit: Yes Status: Resolved Assessment and plan: currently resolved. etiology likely multifactorial secondary to fall, rhabdomyolysis, dehydration. (11) Goals of care, counseling/discussion Current Visit: Yes Status: Acute Assessment and plan: palliative care has evaluated patient remains confused, unable to complete advanced directives at this time. patient's family aware regarding goals of care. please see palliative care note. (12) DVT prophylaxis Current Visit: Yes Status: Acute Assessment and plan: ECPDs in setting of GIB - Subjective Interval history: 82 year old male evaluated at bedside. He beni nausea, vomiting, diarrhea, fever, chills. He reports that his left leg pain has nearly resolved today. He is alert and oriented x2. He denies any further complaints today. - Constitutional Vitals: Temp Pulse Resp BP Pulse Ox 97.4 F L 60 14 151/62 97 03/20/17 07:13 03/20/17 07:13 03/20/17 07:13 03/20/17 07:13 03/20/17 10:10 General appearance: Present: A&O X 2, pleasant, no acute distress, answers questions appropriately - Head Head exam: Present: atraumatic, normocephalic - Neck Neck exam general surgery: Present: supple, trachea midline - Respiratory Respiratory exam: Present: CTAB - Cardiovascular Cardiovascular exam: Present: irregular rhythm - GI/Abdominal GI/Abdominal exam: Present: normal bowel sounds, soft. Absent: distended, tenderness - Extremities Exam Extremities exam: Absent: cyanotic, pedal edema Additional comments: left lower extremity no longer painful to touch or movement. - Back Exam Back exam: Absent: CVA tenderness (L), CVA tenderness (R) - Psychiatric Psychiatric exam: Present: normal affect, normal mood - Skin Skin exam: Absent: cyanosis, rash Internal Medicine: Result - Labs CBC & Chem 7: 03/20/17 05:22 03/20/17 05:22 Labs: Short CBC 03/20/17 Range/Units 05:22 WBC 14.2 H (4.3-11.1) K/mcL Hgb 9.0 L (12.9-16.9) g/dL Hct 28.1 L (37.5-50.1) % Plt Count 393 (140-400) K/mcL Neutrophils # 13.1 H (1.6-8.9) K/mcL BMP 03/20/17 05:22 Sodium 137 Potassium 4.6 H Chloride 92 L Carbon Dioxide 39 H BUN 35 H Creatinine 1.15 Glucose 125 H Calcium 8.7 Urine 03/20/17 Range/Units 01:45 Urine Color Yellow (Yellow) Urine Clarity Cloudy A (Clear) Urine pH 7.5 (5.0-8.0) pH Units Ur Specific [place] 1.013 (1.010-1.025) Urine Protein Trace (Neg-Trace) mg/dL Urine Glucose (UA) Normal (Normal) mg/dL - Impressions Impressions Bone Scan Nuclear Medicine 03/19/17 08:09 IMPRESSION: 1. Abnormal three phase bone scan with increased blood flow to the soft tissues concerning for cellulitis. 2. Abnormal trace accumulation all three phases involving the tibiotalar joint. I see no posttraumatic etiology on the recent CT imaging and findings may relate to inflammatory or septic arthritis. D/ / 03/19/2017 11:47:06 Ras Domingo MD / meredith Interpreting Provider: Ras Domingo MD Consult Discharge Plan - Plan Referrals: Twyla Sorenson MD [Non-Partnered Physician] - (Patient will possiblly go to an ECF and will follow up with PCP there) <Norris Reeder - Last Filed: 03/20/17 19:28> Date of Encounter: 03/20/17 - Assessment and plan (1) Leg pain, left Current Visit: Yes Status: Acute (2) Folate deficiency Current Visit: Yes Status: Chronic (3) Acute respiratory failure with hypoxia Current Visit: Yes Status: Acute (4) Fall Current Visit: Yes Status: Acute Qualifiers: Encounter type: subsequent encounter Qualified Code(s): W19.XXXD - Unspecified fall, subsequent encounter (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 (6) Anemia Current Visit: Yes Status: Acute Qualifiers: Anemia type: other cause Other causes of anemia: acute posthemorrhagic Qualified Code(s): D62 - Acute posthemorrhagic anemia (7) Afib Current Visit: Yes Status: Chronic Qualifiers: Atrial fibrillation type: chronic Qualified Code(s): I48.2 - Chronic atrial fibrillation - Constitutional Vitals: Temp Pulse Resp BP Pulse Ox 98.6 F 75 19 144/50 95 03/20/17 19:06 03/20/17 19:06 03/20/17 19:06 03/20/17 19:06 03/20/17 19:06 Internal Medicine: Result - Labs CBC & Chem 7: 03/20/17 05:22 03/20/17 05:22 Labs: Short CBC 03/20/17 Range/Units 05:22 WBC 14.2 H (4.3-11.1) K/mcL Hgb 9.0 L (12.9-16.9) g/dL Hct 28.1 L (37.5-50.1) % Plt Count 393 (140-400) K/mcL Neutrophils # 13.1 H (1.6-8.9) K/mcL BMP 03/20/17 05:22 Sodium 137 Potassium 4.6 H Chloride 92 L Carbon Dioxide 39 H BUN 35 H Creatinine 1.15 Glucose 125 H Calcium 8.7 Urine 03/20/17 Range/Units 01:45 Urine Color Yellow (Yellow) Urine Clarity Cloudy A (Clear) Urine pH 7.5 (5.0-8.0) pH Units Ur Specific [place] 1.013 (1.010-1.025) Urine Protein Trace (Neg-Trace) mg/dL Urine Glucose (UA) Normal (Normal) mg/dL - Impressions Impressions Bone Scan Nuclear Medicine 03/19/17 08:09 IMPRESSION: 1. Abnormal three phase bone scan with increased blood flow to the soft tissues concerning for cellulitis. 2. Abnormal trace accumulation all three phases involving the tibiotalar joint. I see no posttraumatic etiology on the recent CT imaging and findings may relate to inflammatory or septic arthritis. D/ / 03/19/2017 11:47:06 Ras Domingo MD / lgray Interpreting Provider: Ras Domingo MD - Attending Attestation I examined this patient and my medical decision-making was reviewed with the Resident Physician on 03/20/17. I agree with the documented findings, disposition and treatment plan as described except to the extent set forth below. Mr. Esparza is currently admitted for GI bleed, falls and L leg pain. He remains moderate to high risk due to potential for worsening neuro status Mr. Esparza's leg is less painful today. No fever or chills. Less swelling. No new issues overnight. Exam Alert. Comfortable Heart reg No wheeze Abd soft L leg with less swelling and no pain with movement. I/P 1. GI bleed 2. Anemia 3. Leg pain Further diagnoses and plan as above. D/C to SNF tomorrow.
[2017-03-20] MEDS: predniSONE 20 MG TABLET PO SCH (14:25)
--- NOTE | 2017-03-20 16:00 | Internal Med Progress Note ---
Date of Encounter: 03/20/17 Time of Encounter: 10:00 - Assessment and plan (1) Fall Current Visit: Yes Status: Acute Qualifiers: Encounter type: subsequent encounter Qualified Code(s): W19.XXXD - Unspecified fall, subsequent encounter (2) GI bleed Current Visit: Yes Status: Suspected Qualifiers: GI bleed type/associated pathology: melena Qualified Code(s): K92.1 - Melena (3) Afib Current Visit: Yes Status: Chronic Qualifiers: Atrial fibrillation type: chronic Qualified Code(s): I48.2 - Chronic atrial fibrillation (4) Acute respiratory failure with hypoxia Current Visit: Yes Status: Acute (5) Encephalopathy acute Current Visit: Yes Status: Resolved (6) Cellulitis Current Visit: Yes Status: Acute Qualifiers: Site of cellulitis: extremity Site of cellulitis of extremity: lower extremity Laterality: left Qualified Code(s): L03.116 - Cellulitis of left lower limb (7) Rhabdomyolysis Current Visit: Yes Status: Resolved Qualifiers: Rhabdomyolysis type: non-traumatic Qualified Code(s): M62.82 - Rhabdomyolysis (8) Elevated troponin Current Visit: Yes Status: Resolved (9) FRANCESCO (acute kidney injury) Current Visit: Yes Status: Resolved (10) Goals of care, counseling/discussion Current Visit: Yes Status: Acute Assessment and plan: palliative care has evaluated patient remains confused, unable to complete advanced directives at this time. patient's family aware regarding goals of care. please see palliative care note. (11) DVT prophylaxis Current Visit: Yes Status: Acute Assessment and plan: ECPDs in setting of GIB - Subjective Interval history: 82 year old male evaluated at bedside. he denies nausea, vomiting, diarrhea, fever, chills, chest pain, or shortness of breath. patient is sitting up in bed. He is alert and oriented x3, no acute distress. he states that his leg pain is drastically improved compared to yesterday. - Constitutional Vitals: Temp Pulse Resp BP Pulse Ox 97.3 F L 69 18 144/58 97 03/20/17 11:18 03/20/17 11:18 03/20/17 11:18 03/20/17 11:18 03/20/17 11:18 General appearance: Present: A&O X 2, pleasant, no acute distress, answers questions appropriately - Head Head exam: Present: atraumatic, normocephalic - Neck Neck exam general surgery: Present: supple, trachea midline - Respiratory Respiratory exam: Present: CTAB - Cardiovascular Cardiovascular exam: Present: irregular rhythm - GI/Abdominal GI/Abdominal exam: Present: normal bowel sounds, soft. Absent: distended, tenderness - Extremities Exam Extremities exam: Present: radial pulses palpable and symetrical. Absent: cyanotic, pedal edema Additional comments: left lower extremity: no swelling or erythema compared to prior. - Neurological Exam Neurological exam: Present: alert - Psychiatric Psychiatric exam: Present: normal affect, normal mood - Skin Skin exam: Present: intact Internal Medicine: Result - Labs CBC & Chem 7: 03/20/17 05:22 03/20/17 05:22 Labs: Short CBC 03/20/17 Range/Units 05:22 WBC 14.2 H (4.3-11.1) K/mcL Hgb 9.0 L (12.9-16.9) g/dL Hct 28.1 L (37.5-50.1) % Plt Count 393 (140-400) K/mcL Neutrophils # 13.1 H (1.6-8.9) K/mcL BMP 03/20/17 05:22 Sodium 137 Potassium 4.6 H Chloride 92 L Carbon Dioxide 39 H BUN 35 H Creatinine 1.15 Glucose 125 H Calcium 8.7 Urine 03/20/17 Range/Units 01:45 Urine Color Yellow (Yellow) Urine Clarity Cloudy A (Clear) Urine pH 7.5 (5.0-8.0) pH Units Ur Specific [place] 1.013 (1.010-1.025) Urine Protein Trace (Neg-Trace) mg/dL Urine Glucose (UA) Normal (Normal) mg/dL - Impressions Impressions Bone Scan Nuclear Medicine 03/19/17 08:09 IMPRESSION: 1. Abnormal three phase bone scan with increased blood flow to the soft tissues concerning for cellulitis. 2. Abnormal trace accumulation all three phases involving the tibiotalar joint. I see no posttraumatic etiology on the recent CT imaging and findings may relate to inflammatory or septic arthritis. D/ / 03/19/2017 11:47:06 Ras Domingo MD / meredith Interpreting Provider: Ras Domingo MD Consult Discharge Plan - Plan Referrals: Twyla Sorenson MD [Non-Partnered Physician] - (Patient will possiblly go to an ECF and will follow up with PCP there)
--- NOTE | 2017-03-21 06:04 | Discharge Summary ---
<Brooke Reilly - Last Filed: 03/21/17 11:42> Date of Encounter: 03/21/17 Time of Encounter: 06:03 - Discharge Diagnosis (1) Fall Priority: Primary Status: Acute Qualifiers: Encounter type: subsequent encounter Qualified Code(s): W19.XXXD - Unspecified fall, subsequent encounter (2) Leg pain, left Priority: Secondary Status: Acute (3) GI bleed Priority: Secondary Status: Suspected Qualifiers: GI bleed type/associated pathology: melena Qualified Code(s): K92.1 - Melena (4) Afib Priority: Secondary Status: Chronic Qualifiers: Atrial fibrillation type: chronic Qualified Code(s): I48.2 - Chronic atrial fibrillation (5) Acute respiratory failure with hypoxia Priority: Secondary Status: Acute (6) Encephalopathy acute Priority: Secondary Status: Resolved (7) Cellulitis Priority: Secondary Status: Acute Qualifiers: Site of cellulitis: extremity Site of cellulitis of extremity: lower extremity Laterality: left Qualified Code(s): L03.116 - Cellulitis of left lower limb (8) Rhabdomyolysis Priority: Secondary Status: Resolved Qualifiers: Rhabdomyolysis type: non-traumatic Qualified Code(s): M62.82 - Rhabdomyolysis (9) Elevated troponin Priority: Secondary Status: Resolved (10) FRANCESCO (acute kidney injury) Priority: Secondary Status: Resolved (11) Goals of care, counseling/discussion Priority: Secondary Status: Acute (12) DVT prophylaxis Priority: Secondary Status: Acute - Discharge Medications Prescriptions: HYDROcodone/Acet 5/325 mg [[place] 5-325 mg] 1 tab PO Q6HR PRN #28 tab PRN Reason: Moderate Pain predniSONE [PredniSONE] 20 mg PO DAILY #3 tab Home Medications: Donepezil [Aricept] 5 mg PO HS 03/10/17 [History] Ferrous Sulfate [Iron] 325 mg PO DAILY 03/10/17 [History] Lisinopril [Zestril] 40 mg PO DAILY 03/10/17 [History] Multivitamin [One Daily Essential] 1 each PO DAILY 03/10/17 [History] [place]-3 Fatty Acids [Fish Oil] 600 mg PO DAILY 03/10/17 [History] Sertraline [Zoloft] 25 mg PO DAILY 03/10/17 [History] amLODIPine [Norvasc] 10 mg PO DAILY 03/10/17 [History] Folic Acid 5 mg PO DAILY tab 03/21/17 [Rx] Furosemide [Lasix] 20 mg PO DAILY #0 tab 03/21/17 [Rx] HYDROcodone/Acet 5/325 mg [[place] 5-325 mg] 1 tab PO Q6HR PRN #28 tab 03/21/17 [ Rx] Ipratropium/Albuterol Neb [Duoneb] 3 ml IH [id number] PRN inh 03/21/17 [Rx] Naloxone [Narcan] 0.4 mg IVP Q2MIN PRN 03/21/17 [Rx] Omeprazole [PriLOSEC] 40 mg PO DAILY@0730 03/21/17 [Rx] Sennosides/Docusate Sodium [Senna Plus] 1 each PO DAILY PRN tab 03/21/17 [Rx] Sucralfate [Carafate] 1 gm PO QIDAC tab 03/21/17 [Rx] predniSONE [PredniSONE] 20 mg PO DAILY #3 tab 03/21/17 [Rx] Allergies/Adverse Reactions: Allergies No Known Allergies Allergy (Verified 03/10/17 13:14) Procedures/tests Complete & Pending: Procedures Performed prior 72 hours Category Date Time Status NM bone 3 phase [NM] Routine Exams 03/19/17 08:09 Completed Date of admission: 03/09/17 22:35 Primary care physician: PCP NONE Consults: 03/09/17 22:51 Consult to Nutrition [CONS] Routine Comment: Consulting Provider: NUTRITION Reason for Dietary Consult: MST Score Consult to Pure Pak Machine Operator [CONS] Routine Reason for SW Consult: Patient unable to take care of self at home. 03/09/17 22:54 Consult to Physical Therapy [CONS] Routine Comment: Evaluate, develop and implement POC Reason for Consult: fall 03/10/17 10:35 OT [Consult to Occupational Therapy] [CONS] Routine Comment: Evaluate, develop and implement POC Reason for Consult: Evaluation for ECF 03/10/17 11:47 Consult to Palliative Care [CONS] Routine Comment: Consulting Provider: [facility] Reason for Consult: code status, fci goals Call Completed: No 03/11/17 09:23 Consult to Surgery [CONS] Routine Consulting Provider: [facility] Reason for Consult: Concern for GI bleed. Call Completed: Yes 03/13/17 12:22 Consult to Speech Therapy [CONS] Stat Comment: Evaluate, develop and implement POC Reason for Consult: swallow eval Call Completed: No 03/20/17 08:29 Consult to Physician [CONS] Routine Consulting Provider: Samuel Thompson Reason for Consult: concern for post traumatic inflammatory process Call Completed: Yes - Patient Status Disposition: Transfer SNF Condition: Fair Functional capacity at discharge: wheelchair bound Overall status at discharge: patient is not back to baseline - Discharge Instructions Follow Up With: Twyla Sorenson MD [Non-Partnered Physician] - (Patient will possiblly go to an ECF and will follow up with PCP there) Samuel Thompson, [Partnered Physician] - Additional Instructions: continue carafate for one month and omeprazole 40mg PO daily for three months per surgery recommendations for upper GI bleed. Stop Eliquis. continue prednisone as prescribed. repeat Uric acid in 5 days. continue folate. wean off oxygen as tolerated. continue lasix - Diet and Activity Activity: as per physical therapy Diet: low fat, low cholesterol Hospital course: Mr. Esparza is a 82 year old male with PMHx of HTN, depression, dementia, HLD, CAD (s/p CABG and pacemaker), Afib (on Eliquis). [facility] on 03/09/17 with CC of fall with loss of consciousness, altered mental status. He had elevated CK of 2625, troponin .24, Cr of 1.34, elevated WBC. He also had left lower extremity cellulitis. He was admitted for further workup. On presentation, patient had acute respiratory failure with hypoxia and was placed on oxygen. Patient was treated with fluids for rhabdomyolysis and FRANCESCO likely secondary to dehydration, fall. CT of left lower extremity showed no acute osseous abnormality, soft tissue swelling, no evidnece of osteomyelitis. He completed a 7 day course of vancomycin for left lower extremity cellulitis. He also completed 7 day course of unasyn for likely aspiration pneumonia in setting of altered mental status. CXR was consistent with mild to moderate CHF with bibasilar airspace disease. Furthermore, he had extensive Lower extremity edema and was started on lasix. Patient had a significant drop in Hg and was transfused two units of packed red blood cells. His Eliquis was stopped. EGD showed a nonbleeding duodenoal ulcer with pigmented material, duodenitis. Biopsy showed gastric mucosa with focal regenerative change suggestive of reactive gastropathy with no H.Pylori organisms identified. Patient's elevated troponin was likely secondary to demand ischemia in setting of GI bleed. Palliative care was consulted, and goals of care were discussed with patient and his son. However, patient remained confused and they were unable to set advanced directives. Throughout his hospital stay, patient continued to be altered and intermittently confused. He also continued to complain of left lower extremity pain despite completing course of antibiotics. Tib/Fib xrays negative for acute fracture and Lower extremity doppler was negative for DVT. Bone scan showed increased blood flow to soft tissues, abnormal trace accumulation involving tibiotalar joint concerning for inflammatory vs. septic arthritis. His ESR and CRP levels were elevated and rheumatoid factor was negative. Rheumatology was consulted for further recs. He received 1 dose of solumedrol, which seemed to improve his pain. Uric acid levels were normal. CCP, DESIREE pending. Patient continued to have altered mental status upon discharge. Etiology is multifactorial in setting of fall, hypoxia, underlying dementia. Patient was found to have folate deficiency and supplements were started. Patient will be discharged to extended care facility for rehabilitation, PT/OT. Patient remained stable upon discharge. Plan: continue carafate for one month and omeprazole 40mg PO daily for three months per surgery recommendations for upper GI bleed. Stop Eliquis. continue prednisone as prescribed. repeat Uric acid in 5 days. continue folate. wean off oxygen as tolerated. - Time Spent with Patient Total time spent providing and/or coordinating discharge services: - Constitutional Vitals: Temp Pulse Resp BP Pulse Ox 97.6 F 60 19 161/57 97 03/21/17 03:22 03/21/17 03:22 03/21/17 03:22 03/21/17 03:22 03/21/17 03:22 General appearance: Present: A&O X 2, pleasant, no acute distress, answers questions appropriately - Head Head exam: Present: atraumatic, normocephalic - Neck Neck exam general surgery: Present: supple, trachea midline - Respiratory Respiratory exam: Present: CTAB - Cardiovascular Cardiovascular exam: Present: RRR, +S1, +S2 - GI/Abdominal GI/Abdominal exam: Present: normal bowel sounds, soft. Absent: distended, tenderness - Extremities Exam Extremities exam: Absent: cyanotic, pedal edema, tenderness - Back Exam Back exam: Absent: CVA tenderness (L), CVA tenderness (R) - Psychiatric Psychiatric exam: Present: normal affect, normal mood - VTE Documentation of Mechanical Device: Intermittent pneumatic compression device <Newton Espinal T - Last Filed: 03/21/17 15:45> Date of Encounter: 03/21/17 - Discharge Diagnosis (1) Sepsis Status: Acute Qualifiers: Sepsis type: sepsis due to unspecified organism Qualified Code(s): A41.9 - Sepsis, unspecified organism (2) Rhabdomyolysis Status: Resolved Qualifiers: Rhabdomyolysis type: non-traumatic Qualified Code(s): M62.82 - Rhabdomyolysis (3) Elevated troponin Status: Resolved (4) FRANCESCO (acute kidney injury) Status: Resolved (5) Encephalopathy acute Status: Resolved (6) Fall Status: Acute Qualifiers: Encounter type: subsequent encounter Qualified Code(s): W19.XXXD - Unspecified fall, subsequent encounter (7) Cellulitis Status: Acute Qualifiers: Site of cellulitis: extremity Site of cellulitis of extremity: lower extremity Laterality: left Qualified Code(s): L03.116 - Cellulitis of left lower limb (8) GI bleed Status: Suspected Qualifiers: GI bleed type/associated pathology: melena Qualified Code(s): K92.1 - Melena Procedures/tests Complete & Pending: Procedures Performed prior 72 hours Category Date Time Status NM bone 3 phase [NM] Routine Exams 03/19/17 08:09 Completed Date of admission: 03/09/17 22:35 Primary care physician: PCP NONE Consults: 03/09/17 22:51 Consult to Nutrition [CONS] Routine Comment: Consulting Provider: NUTRITION Reason for Dietary Consult: MST Score Consult to Pure Pak Machine Operator [CONS] Routine Reason for SW Consult: Patient unable to take care of self at home. 03/09/17 22:54 Consult to Physical Therapy [CONS] Routine Comment: Evaluate, develop and implement POC Reason for Consult: fall 03/10/17 10:35 OT [Consult to Occupational Therapy] [CONS] Routine Comment: Evaluate, develop and implement POC Reason for Consult: Evaluation for ECF 03/10/17 11:47 Consult to Palliative Care [CONS] Routine Comment: Consulting Provider: Palliative [facility] Reason for Consult: code status, intermediate project manager goals Call Completed: No 03/11/17 09:23 Consult to Surgery [CONS] Routine Consulting Provider: [facility] Reason for Consult: Concern for GI bleed. Call Completed: Yes 03/13/17 12:22 Consult to Speech Therapy [CONS] Stat Comment: Evaluate, develop and implement POC Reason for Consult: swallow eval Call Completed: No 03/20/17 08:29 Consult to Physician [CONS] Routine Consulting Provider: Samuel Thompson Reason for Consult: concern for post traumatic inflammatory process Call Completed: Yes Hospital course: Mr. Esparza is a 82 year old male - Time Spent with Patient Total time spent providing and/or coordinating discharge services: Greater than 30 minutes - Constitutional Vitals: Temp Pulse Resp BP Pulse Ox 98 F 69 20 133/53 98 03/21/17 11:49 03/21/17 11:49 03/21/17 11:49 03/21/17 11:49 03/21/17 11:49 - Attending Attestation I examined this patient and my medical decision-making was reviewed with the Resident Physician on 03/21/17. I agree with the documented findings, disposition and treatment plan as described except to the extent set forth below. Mr. Esparza has had a prolonged hospital course with FRANCESCO Sepsis, Cellulitis, GI bleed, Fall, Rhabdo All have resolved He is stable for discharge to SNF His physical exam VSS, CTAB, Abdomen is bening his LE exam is unremarkable Follow up with PCP
[2017-03-21 07:45] LABS: BUN/Creatinine Ratio 35 (6-26); Blood Urea Nitrogen 37 mg/dL (8-26); Carbon Dioxide 37 mEq/L (19-29); Chloride 91 mEq/L (98-109); Glucose 85 mg/dL (70-99); Osmolality,Calculated 286 (280-300); Potassium 4.7 mEq/L (3.5-4.5); Sodium 134 mEq/L (136-145); eGFR For African Americans > 60 (> 60); eGFR For Non-African Americans > 60 (> 60)
[2017-03-21 08:09] LABS: Basophils # 0.1 K/mcL (0.0-0.2); Basophils % 0.4 %; Eosinophils % 0.2 %; Hematocrit 29.8 % (37.5-50.1); Hemoglobin 9.3 g/dL (12.9-16.9); Immature Granulocytes % 0.6 % (0-4); Lymphocytes % 13.9 %; Mean Corpuscular HGB Conc 31.2 g/dL (31.6-35.5); Mean Corpuscular Hemoglobin 29.2 pg (28.0-33.3); Mean Corpuscular Volume 93.7 fL (83.0-100.0); Mean Platelet Volume 9.6 fL (9.4-12.4); Monocytes # 0.8 K/mcL (0.0-1.3); Monocytes % 5.9 %; Neutrophils # 11.2 K/mcL (1.6-8.9); Platelet Count 461 K/mcL (140-400); Red Blood Count 3.18 M/mcL (4.19-5.50); Red Cell Distribution Width 13.8 % (11.5-14.5)
[2017-03-21] MEDS: Sucralfate 1 GM TABLET PO SCH ×2 (08:18→11:17)
[2017-03-21] MEDS: Furosemide 40 MG TABLET PO SCH (08:18)
[2017-03-21] MEDS: predniSONE 20 MG TABLET PO SCH (08:19)
[2017-03-21] MEDS: Folic Acid 1 MG TABLET PO SCH (08:19)
--- NOTE | 2017-03-21 09:38 | Physician Discharge Referral ---
ExtendedCare Referral Info Transfer To: [facility] Provider in Charge after Transfer: PCP Institutional Level of Care: Skilled - Diagnosis (1) Fall Priority: Primary Status: Acute (2) Leg pain, left Priority: Secondary Status: Acute (3) GI bleed Priority: Secondary Status: Suspected (4) Afib Priority: Secondary Status: Chronic (5) Acute respiratory failure with hypoxia Priority: Secondary Status: Acute (6) Encephalopathy acute Priority: Secondary Status: Resolved (7) Cellulitis Priority: Secondary Status: Acute (8) Rhabdomyolysis Priority: Secondary Status: Resolved (9) Elevated troponin Priority: Secondary Status: Resolved (10) FRANCESCO (acute kidney injury) Priority: Secondary Status: Resolved (11) Goals of care, counseling/discussion Priority: Secondary Status: Acute (12) DVT prophylaxis Priority: Secondary Status: Acute - Transfer Medications Prescriptions: HYDROcodone/Acet 5/325 mg [[place] 5-325 mg] 1 tab PO Q6HR PRN #28 tab PRN Reason: Moderate Pain predniSONE [PredniSONE] 20 mg PO DAILY #3 tab Home Medications: Donepezil [Aricept] 5 mg PO HS 03/10/17 [History] Ferrous Sulfate [Iron] 325 mg PO DAILY 03/10/17 [History] Lisinopril [Zestril] 40 mg PO DAILY 03/10/17 [History] Multivitamin [One Daily Essential] 1 each PO DAILY 03/10/17 [History] [place]-3 Fatty Acids [Fish Oil] 600 mg PO DAILY 03/10/17 [History] Sertraline [Zoloft] 25 mg PO DAILY 03/10/17 [History] amLODIPine [Norvasc] 10 mg PO DAILY 03/10/17 [History] Folic Acid 5 mg PO DAILY tab 03/21/17 [Rx] Furosemide [Lasix] 20 mg PO DAILY #0 tab 03/21/17 [Rx] HYDROcodone/Acet 5/325 mg [[place] 5-325 mg] 1 tab PO Q6HR PRN #28 tab 03/21/17 [ Rx] Ipratropium/Albuterol Neb [Duoneb] 3 ml IH [id number] PRN inh 03/21/17 [Rx] Naloxone [Narcan] 0.4 mg IVP Q2MIN PRN 03/21/17 [Rx] Omeprazole [PriLOSEC] 40 mg PO DAILY@0730 03/21/17 [Rx] Sennosides/Docusate Sodium [Senna Plus] 1 each PO DAILY PRN tab 03/21/17 [Rx] Sucralfate [Carafate] 1 gm PO QIDAC tab 03/21/17 [Rx] predniSONE [PredniSONE] 20 mg PO DAILY #3 tab 03/21/17 [Rx] Allergies/Adverse Reactions: Allergies No Known Allergies Allergy (Verified 03/10/17 13:14) - Respiratory Orders Oxygen / L per min (as needed.) Smoking Cessation: Smoking cessation has been advised. For more information, call the [place] Tobacco Quit Line at 3-420-TKZA-NOW. - Lab Orders Lab Orders: Other (include drug levels w/frequency) (Uric acid level in 5 days) - Ancillary Orders May use pressure relief devices daily prn, May go on SUSANA w/family/respon alliance party w /meds at nurse discretion PRN, May consult with Dentist, Appraisal Analyst, Exhibit Builder PRN - Advance Directives Living Will: No Power of Rod Filler: No Code Status: Full Code - Mobility Orders Ambulate - Rehabiliation Orders Rehab Potential: Fair Rehab Orders: ROM Exercises, Evaluation for Physical Therapy, Evaluation for Occupational Therapy, Evaluation for Speech Therapy - Treatments Skin tear care topically daily PRN per policy, May check for fecal impaction rectally daily PRN - Diet Orders Mechanical Soft CERTIFICATION: I certify that the transfer of the above named patient to an Extended Care Facility is necessary for the continuing treatment of the diagnosis listed. The above information is true and accurate reflection of patient's current condition. Confidential - Redisclosure prohibited without a patient's written consent.
[2017-03-21 11:50] VITALS: BP 133/53
[2017-03-21] MEDS ORDERED: Aminoglycoside Consult 1 EACH MC ONE (12:41)
[2017-03-22 08:35] LABS: ANA IgG by ELISA NONE DETECTED (None Detected)
== END 2017-03-21 12:42 | DRG 871 ==
LOC: 2ANU → SUATTDRO 22:35
PROVIDERS: ADMIT Nurse Practitioner Family; ATTEND Internal Medicine
PROC: ENDOEBX (2017-03-12 08:00)